=== PATIENT | male | born 1985 | race African-American/Black ===

== ENCOUNTER 2016-09-05 10:46 | Inpatient (IN) | payer OTHER ==
[2016-09-05 11:29] VITALS: BMI 21.7
--- NOTE | 2016-09-05 12:30 | HP ---
COWS - Scale Resting Pulse: 1= [place] 81-100 Sweatin= Chills/Flushing Restless Observation: 3= Extraneous Movement Pupil Size: 2= Moderately Dilated Bone or Joint Aches: 4=Acute Joint/Muscle Pain Runny Nose/ Eye Tearin= None GI Upset > 30mins: 0= None Tremor Observation: 1= Tremor [place], Not Seen Yawning Observation: 2= >3x During Session Anxiety or Irritability: 2=Irritable/Anxious Goose Flesh Skin: 0=Smooth Skin COWS Score: 16 Admission ROS S - HPI Chief Complaint: DETOX TX FOR HEROIN DEPENDENCE Allergies/Adverse Reactions: Allergies Allergy/AdvReac Type Severity Reaction Status Date / Time peanut Allergy Severe Difficulty Verified 09/05/16 11:56 Breathing No Known Drug Allergies Allergy Verified 09/05/16 11:56 nut - unspecified [nut] Allergy Difficulty Verified 09/05/16 11:56 Breathing History of Present Illness: 31 Y/O AA/MALE WITH A HX OF HEROIN,COCAINE AND MARIJUANA DEPENDENCE SEEKING DETOX [place] Exam Limitations: No Limitations - Ebola screening Have you traveled outside of the country in the last 21 days: No Have you had contact with anyone from an Ebola affected area: No Have you been sick,other than usual withdrawal symptoms: No Do you have a fever: No - Review of Systems Constitutional: Chills, Night Sweats, Changes in sleep, Unintentional Wgt. Loss EENT: reports: Tearing, Nose Congestion Respiratory: reports: Shortness of Breath (HX ASTHMA), Wheezing Cardiac: reports: Lightheadedness GI: reports: Constipated, Diarrhea, Nausea, Poor Appetite, Vomiting : reports: No Symptoms Reported Musculoskeletal: reports: Back Pain, Joint Pain, Muscle Pain Neuro: reports: Tremors, Dizziness Endocrine: reports: No Symptoms Reported Hematology: reports: No Symptoms Reported Psychiatric: reports: Orientated x3, Anxious, Depressed (NOT CURRENTLY ON MED) Other Systems: Reviewed and Negative Patient History - Patient Medical History Hx Anemia: No Hx Asthma: Yes (MDI) Hx Chronic Obstructive Pulmonary Disease (COPD): No Hx Cancer: No Hx Cardiac Disorders: No Hx Congestive Heart Failure: No Hx Hypertension: No Hx Hypercholesterolemia: No Hx Pacemaker: No HX Cerebrovascular Accident: No Hx Seizures: No Hx Diabetes: No Hx Gastrointestinal Disorders: No Hx Liver Disease: No Hx Genitourinary Disorders: No Hx Sexually Transmitted Disorders: No Hx Renal Disease (ESRD): No Hx Thyroid Disease: No Hx Human Immunodeficiency Virus (HIV): No (negative LAST 03/09) Hx Hepatitis C: No Hx Depression: Yes Hx Suicide Attempt: No (DENIES) Hx Bipolar Disorder: No Hx Schizophrenia: No - Patient Surgical History Past Surgical History: No Hx Neurologic Surgery: No Hx Cataract Extraction: No Hx Cardiac Surgery: No Hx Lung Surgery: No Hx Breast Surgery: No Hx Breast Biopsy: No Hx Abdominal Surgery: No Hx Appendectomy: No Hx Cholecystectomy: No Hx Genitourinary Surgery: No Hx Orthopedic Surgery: No Anesthesia Reaction: No - PPD History Previous Implant?: Yes Implanted On Prior [facility] Admission?: Yes Date: 11/26/15 Results: 0 mm PPD to be Administered?: No - Reproductive History Patient is a Female of Child Bearing Age (11 -55 yrs old): No (MALE) - Smoking Cessation Smoking history: Current every day smoker Have you smoked in the past 12 months: Yes Aproximately how many cigarettes per day: 20 Cigars Per Day: 0 Hx Chewing Tobacco Use: No Initiated information on smoking cessation: Yes 'Breaking Loose' booklet given: 09/05/16 - Substance & Tx. History Hx Alcohol Use: No (DENIES) Hx Substance Use: Yes (HEROIN/COCAINE/MARIJUANA) Substance Use Type: Cocaine, Heroin, Marijuana Hx Substance Use Treatment: Yes ([facility]) - Substances Abused Heroin Route: Injection Frequency: Daily Amount used: $90 Age of first use: 29 Date of Last Use: 09/04/16 Cocaine Route: Injection Frequency: Daily Amount used: $50 Age of first use: 23 Date of Last Use: 09/05/16 Marijuana/Hashish Route: Smoking Frequency: 1-2 times per week Amount used: 2 JOINTS Age of first use: 18 Date of Last Use: 09/03/16 Family Disease History - Family Disease History Family Disease History: Diabetes: Grandparent (grandmother), Other: Father ( kidney tranplant), Mother (DSA) Admission Physical Exam [facility] - Vital Signs Vital Signs: Vital Signs - 24 hr 09/05/16 11:28 Temperature 97.6 F Pulse Rate 97 H Respiratory 18 Rate Blood Pressure 122/79 - Physical General Appearance: Yes: Moderate Distress, Irritable, Anxious HEENTM: Yes: EOMI, Normocephalic, [place], Pharynx Normal Respiratory: Yes: Chest Non-Tender, Lungs Clear, Normal Breath Sounds, No Respiratory Distress Neck: Yes: Supple, Trachea in good position Cardiology: Yes: Regular Rhythm, Regular Rate, S1, S2 Abdominal: Yes: Normal Bowel Sounds, Non Tender, Soft Genitourinary: Yes: Other (N/C) Back: Yes: Within Normal Limits Musculoskeletal: Yes: full range of Motion, Gait Steady Extremities: Yes: Normal Range of Motion, Non-Tender Neurological: Yes: apprentice technician II-XII NML intact, Fully Oriented, Alert Integumentary: Yes: Dry, Warm, Track [place] Lymphatic: Yes: Within Normal Limits - Diagnostic (1) Cocaine dependence Current Visit: Yes Status: Acute Qualifiers: Substance use status: uncomplicated Qualified Code(s): F14.20 - Cocaine dependence, uncomplicated (2) Marijuana dependence Current Visit: Yes Status: Acute (3) Nicotine dependence Current Visit: Yes Status: Chronic Qualifiers: Nicotine product type: cigarettes Substance use status: uncomplicated Qualified Code(s): F17.210 - Nicotine dependence, cigarettes, uncomplicated (4) Opioid dependence with withdrawal Current Visit: Yes Status: Acute (5) Asthma Current Visit: Yes Status: Chronic Qualifiers: Asthma severity: mild intermittent Asthma complication type: uncomplicated Qualified Code(s): J45.20 - Mild intermittent asthma, uncomplicated Cleared for Admission [facility] - Detox or Rehab [facility] Level of Care: Medically Managed Detox Regimen/Protocol: Methadone [facility] Breath Alcohol Content Breath Alcohol Content: 0 Urine Drug Screen - Results Drug Screen Negative: No Urine Drug Screen Results: THC-Marijuana, HARDEEP-Cocaine, OPI-Opiates, MDMA-Ecstasy
[2016-09-05] MEDS ORDERED: MAGNESIUM HYDROX 2400MG/30ML ORAL SUSPENSION 30 ML CUP PO PRN (12:55)
[2016-09-05] MEDS ORDERED: MENTHOL/PHENOL 1 EACH UD MM PRN (12:55)
[2016-09-05] MEDS ORDERED: guaiFENesin/D-METHORPHAN HB 10 ML UNIT-DOSE CUPS PO PRN (12:55)
[2016-09-05] MEDS ORDERED: IBUPROFEN 400 MG TABLET (FP) PO PRN (12:55)
[2016-09-05] MEDS ORDERED: P-EPHED 60MG/TRIPROLIDI 2.5MG TABLET PO PRN (12:55)
[2016-09-05] MEDS ORDERED: ACETAMINOPHEN 325 MG TABLET (FP) PO PRN (12:55)
[2016-09-05] MEDS ORDERED: NICOTINE POLACRILEX 4 MG GUM BUC PRN (12:55)
[2016-09-05] MEDS ORDERED: MAGNESIUM CITRATE 300 ML BOTTLE PO PRN (12:55)
[2016-09-05] MEDS ORDERED: LOPERAMIDE HCL 2 MG CAPSULE PO PRN (12:55)
[2016-09-05] MEDS ORDERED: ALBUTEROL SO4 6.7 GM HFA INHALER IH PRN (12:57)
[2016-09-05] MEDS ORDERED: METHADONE HCL 10 MG TABLET (FOR DETOX USE ONLY) PO ONE ×2 (14:07→23:00)
[2016-09-05] MEDS: diazePAM 5 MG TABLET PO PRN ×2 (15:15→23:23)
[2016-09-05] MEDS: NICOTINE 21 MG/24 HOURS TOPICAL PATCH TD SCH (15:16)
[2016-09-05 15:26] LABS: HIV 1 & 2 AB NEGATIVE; HIV 1 AGp24 NEGATIVE
[2016-09-05 16:03] LABS: URINE APPEARANCE CLEAR; URINE BILIRUBIN NEGATIVE (NEGATIVE); URINE BLOOD NEGATIVE (NEGATIVE); URINE COLOR DKYELLOW; URINE GLUCOSE (UA) NEGATIVE (NEGATIVE); URINE KETONE NEGATIVE (NEGATIVE); URINE NITRITE NEGATIVE (NEGATIVE); URINE PROTEIN NEGATIVE (NEGATIVE); URINE UROBILINOGEN NEGATIVE E.U./dl (0.2-1.0)
[2016-09-05 16:13] LABS: URINE LEUK ESTERASE TRACE (NEGATIVE)
[2016-09-05 16:54] LABS: URINE BACTERIA RARE /hpf (NONE SEEN); URINE MUCUS RARE; URINE RBC 1 /hpf (0-3); URINE WBC 5 /hpf (3-5)
[2016-09-05] MEDS: THIAMINE HCL 100 MG TABLET (FP) PO SCH (22:24)
[2016-09-05] MEDS: diphenhydrAMINE HCL 50 MG CAPSULE PO PRN (23:21)
[2016-09-06] MEDS: diazePAM 5 MG TABLET PO PRN ×4 (05:49→22:26)
[2016-09-06] MEDS ORDERED: METHADONE HCL 10 MG TABLET (FOR DETOX USE ONLY) PO ONE (10:00)
[2016-09-06] MEDS: PRENATAL VITAMINS W/ FOLIC ACID TABLET (FP) PO SCH (10:23)
[2016-09-06] MEDS: NICOTINE 21 MG/24 HOURS TOPICAL PATCH TD SCH (10:24)
[2016-09-06 10:32] LABS: MCH 25.4 pg (25.7-33.7); MCHC 32.6 g/dl (32.0-35.9); MEAN CELL VOLUME 77.7 fl (80-96); MEAN PLT VOLUME 9.6 fl (7.5-11.1); PLATELET COUNT 228 K/MM3 (134-434); RDW 15.5 % (11.9-15.9)
--- NOTE | 2016-09-06 10:43 | PN ---
S COWS - Scale Resting Pulse: 1= [place] 81-100 Sweatin= Chills/Flushing Restless Observation: 3= Extraneous Movement Pupil Size: 2= Moderately Dilated Bone or Joint Aches: 2= Severe Diffuse Aches Runny Nose/ Eye Tearin= Nasal Congestion GI Upset > 30mins: 0= None Tremor Observation of Outstretched Hands: 1= Tremor [place], Not Seen Yawning Observation: 2= >3x During Session Anxiety or Irritability: 2=Irritable/Anxious Goose Flesh Skin: 0=Smooth Skin COWS Score: 15 S Progress Note (SOAP) Subjective: SLIGHT ANXIETY,SWEATS,MEDS EFFECTIVE. Objective: 09/06/16 10:42 Vital Signs Temperature 96.5 F L 09/06/16 09:52 Pulse Rate 93 H 09/06/16 09:52 Respiratory Rate 18 09/06/16 09:52 Blood Pressure 125/70 09/06/16 09:52 O2 Sat by Pulse Oximetry (%) Laboratory Last Values WBC 9.0 K/mm3 (4.0-10.0) 09/06/16 06:00 RBC 5.44 M/mm3 (4.00-5.60) 09/06/16 06:00 Hgb 13.8 GM/dL (11.7-16.9) 09/06/16 06:00 Hct 42.3 % (35.4-49) 09/06/16 06:00 MCV 77.7 fl (80-96) L 09/06/16 06:00 MCHC 32.6 g/dl (32.0-35.9) 09/06/16 06:00 RDW 15.5 % (11.9-15.9) 09/06/16 06:00 Plt Count 228 K/MM3 (134-434) 09/06/16 06:00 MPV 9.6 fl (7.5-11.1) 09/06/16 06:00 Urine Color Dkyellow 09/05/16 14:00 Urine Appearance Clear 09/05/16 14:00 Urine pH 5.0 (5.0-8.0) D 09/05/16 14:00 Ur Specific [place] 1.027 (1.001-1.035) 09/05/16 14:00 Urine Protein Negative (NEGATIVE) 09/05/16 14:00 Urine Glucose (UA) Negative (NEGATIVE) 09/05/16 14:00 Urine Ketones Negative (NEGATIVE) 09/05/16 14:00 Urine Blood Negative (NEGATIVE) 09/05/16 14:00 Urine Nitrite Negative (NEGATIVE) 09/05/16 14:00 Urine Bilirubin Negative (NEGATIVE) 09/05/16 14:00 Urine Urobilinogen Negative E.U./dl (0.2-1.0) 09/05/16 14:00 Ur Leukocyte Esterase Trace (NEGATIVE) H 09/05/16 14:00 Urine RBC 1 /hpf (0-3) 09/05/16 14:00 Urine WBC 5 /hpf (3-5) 09/05/16 14:00 Ur Epithelial Cells Rare /hpf (FEW) 09/05/16 14:00 Urine Bacteria Rare /hpf (NONE SEEN) 09/05/16 14:00 Urine Mucus Rare 09/05/16 14:00 HIV 1&2 Antibody Screen Negative 09/05/16 12:05 HIV P24 Antigen Negative 09/05/16 12:05 LABS NOTED Assessment: 09/06/16 10:42 WITHDRAWAL SX Plan: CONTINUE DETOX
[2016-09-06 11:10] LABS: ALBUMIN 4.2 g/dl (3.4-5.0); ALK PHOS 111 U/L (45-117); ANION GAP 9 (8-16); BILIRUBIN,TOTAL 0.6 mg/dL (0.2-1.0); CALCIUM 9.1 mg/dL (8.5-10.1); CO2 25 mmol/L (21-32); CREATININE 1.2 mg/dL (0.7-1.3); GLUCOSE,RANDOM 78 mg/dL (74-106); SGOT/AST 109 U/L (15-37); SGPT/ALT 282 U/L (12-78); TOT PROT 7.2 g/dl (6.4-8.2)
--- NOTE | 2016-09-06 11:15 | CONSULT ---
[facility] Psychiatric Consult - Data Date of interview: 09/06/16 Admission source: [facility] Identifying data: New admission to [facility] for this 31 y/o AA male seeking detox treatment,on ,for alcohol,cocaine (crack),heroin,benzodiazepine ( xanax) and marijuana dependence.Patient is single without children,domiciled ( lives with mother),unemployed and dependent on food stamps. Substance Abuse History: - Smoking Cessation. Smoking history: Current every day smoker. Have you smoked in the past 12 months: Yes. Aproximately how many cigarettes per day: 20. Cigars Per Day: 0. Hx Chewing Tobacco Use: No. Initiated information on smoking cessation: Yes. 'Breaking Loose' booklet given : 09/05/16. - Substance & Tx. History. Hx Alcohol Use: No (DENIES). Hx Substance Use: Yes (HEROIN/COCAINE/MARIJUANA). Substance Use Type: Cocaine, Heroin, Marijuana. Hx Substance Use Treatment: Yes ([facility]). - Substances Abused. Heroin. Route: Injection. Frequency: Daily. Amount used: $90. Age of first use: 29. Date of Last Use: 09/04/16. Cocaine. Route: Injection. Frequency: Daily. Amount used: $50. Age of first use: 23. Date of Last Use: 09/05/16. Marijuana/Hashish. Route: Smoking. Frequency: 1-2 times per week. Amount used: 2 JOINTS. Age of first use: 18. Date of Last Use: 09/03/16. Confirmed by patient. Medical History: Significant for bronchial asthma. Psychiatric History: Patient admits to being lost to follow up since 2011.Off psychotropic medications (own choice).First contact with Psychiatry at age 17- 18 (diagnosed with MDD and treated with psychotherapy).Pharmacotherapy was initiated in 1999 and lasted until 2011 (patient has no recall of medications) .Mr Berman denies history of psychiatric hospitalizations.No history of suicide attempts. Physical/Sexual Abuse/Trauma History: Patient denies. Mental Status Exam - Mental Status Exam Alert and Oriented to: Time, Place, Person Cognitive Function: Good Patient Appearance: Well Groomed Mood: Hopeful, Euthymic Affect: Appropriate, Normal Range Patient Behavior: Appropriate, Cooperative Speech Pattern: Clear, Appropriate Voice Loudness: Normal Thought Process: Goal Oriented Thought Disorder: Not Present Hallucinations: Denies Suicidal Ideation: Denies Homicidal Ideation: Denies Insight/Judgement: Good Sleep: Well Appetite: Good Muscle strength/Tone: Normal Gait/Station: Normal Psychiatric Findings - Problem List ([place] 1, 2,3) (1) Cocaine dependence Current Visit: Yes Status: Acute Qualifiers: Substance use status: uncomplicated Qualified Code(s): F14.20 - Cocaine dependence, uncomplicated (2) Marijuana dependence Current Visit: Yes Status: Acute (3) Opioid dependence with withdrawal Current Visit: Yes Status: Acute (4) Nicotine dependence Current Visit: Yes Status: Acute Qualifiers: Nicotine product type: cigarettes Substance use status: uncomplicated Qualified Code(s): F17.210 - Nicotine dependence, cigarettes, uncomplicated (5) Alcohol dependence with uncomplicated withdrawal Current Visit: Yes Status: Acute (6) Uncomplicated sedative, hypnotic or anxiolytic withdrawal Current Visit: Yes Status: Acute (7) Asthma Current Visit: Yes Status: Chronic Qualifiers: Asthma severity: mild intermittent Asthma complication type: uncomplicated Qualified Code(s): J45.20 - Mild intermittent asthma, uncomplicated - Initial Treatment Plan Initial Treatment Plan: Psychoeducation.Detoxification.Zolpidem 5 mg po hs prn.Patient is made aware of parasomnias.Patient agrees withis careplan.Observation.
--- NOTE | 2016-09-06 12:44 | EKG ---
Test Reason : Blood Pressure : / mmHG Vent. Rate : 081 BPM Atrial Rate : 081 BPM P-R Int : 160 ms QRS Dur : 088 ms QT Int : 374 ms P-R-T Axes : 082 -20 055 degrees QTc Int : 434 ms NORMAL SINUS RHYTHM POSSIBLE LEFT ATRIAL ENLARGEMENT NO PREVIOUS ECGS AVAILABLE Confirmed by LAKESHA GUERRA MD ([id number]) on 09/06/2016 12:43:43 PM Referred By: Confirmed By:LAKESHA GUERRA MD
[2016-09-06] MEDS ORDERED: PNEUMOC 13-VAL CONJ-DIP CRM/PF 0.5 ML DISP.SYRIN IM ONE (13:40)
[2016-09-06] MEDS ORDERED: ZOLPIDEM TARTRATE 5 MG TABLET PO PRN (22:00)
[2016-09-06] MEDS: THIAMINE HCL 100 MG TABLET (FP) PO SCH (22:26)
[2016-09-06] MEDS: diphenhydrAMINE HCL 50 MG CAPSULE PO PRN (22:27)
[2016-09-07] MEDS: diazePAM 5 MG TABLET PO PRN ×3 (06:06→22:20)
[2016-09-07] MEDS ORDERED: METHADONE HCL 5 MG TABLET (FOR DETOX USE ONLY) PO ONE (10:00)
[2016-09-07] MEDS: NICOTINE 21 MG/24 HOURS TOPICAL PATCH TD SCH (10:43)
[2016-09-07] MEDS: PRENATAL VITAMINS W/ FOLIC ACID TABLET (FP) PO SCH (10:43)
[2016-09-07] MEDS: MAG HYDROX/AL HYDROX/SIMETH 30 ML UNIT-DOSE CUP PO PRN (11:41)
[2016-09-07] MEDS ORDERED: PNEUMOCOCCAL 23 VACCINE 0.5 ML VIAL IM ONE (12:00)
--- NOTE | 2016-09-07 17:23 | PN ---
S COWS - Scale Resting Pulse: 1= [place] 81-100 Sweatin= Chills/Flushing Restless Observation: 1= Difficult to Sit Still Pupil Size: 2= Moderately Dilated Bone or Joint Aches: 1= Mild Discomfort Runny Nose/ Eye Tearin= Runny Nose/Eyes GI Upset > 30mins: 2= Nausea/Diarrhea Tremor Observation of Outstretched Hands: 2= Slight Tremor Visible Yawning Observation: 0= None Anxiety or Irritability: 2=Irritable/Anxious Goose Flesh Skin: 0=Smooth Skin COWS Score: 14 [facility] Progress Note (SOAP) Objective: 09/07/16 17:24 Laboratory Tests 09/05/16 09/05/16 09/06/16 12:05 14:00 06:00 WBC 9.0 RBC 5.44 Hgb 13.8 Hct 42.3 MCV 77.7 L MCHC 32.6 RDW 15.5 Plt Count 228 MPV 9.6 Sodium Potassium Chloride Carbon Dioxide Anion Gap BUN Creatinine Creat Clearance w eGFR Random Glucose Calcium Total Bilirubin AST ALT Alkaline Phosphatase Total Protein Albumin Urine Color Dkyellow Urine Appearance Clear Urine pH 5.0 D Ur Specific [place] 1.027 Urine Protein Negative Urine Glucose (UA) Negative Urine Ketones Negative Urine Blood Negative Urine Nitrite Negative Urine Bilirubin Negative Urine Urobilinogen Negative Ur Leukocyte Esterase Trace H Urine RBC 1 Urine WBC 5 Ur Epithelial Cells Rare Urine Bacteria Rare Urine Mucus Rare RPR Titer HIV 1&2 Antibody Screen Negative HIV P24 Antigen Negative 09/06/16 09/06/16 06:00 06:00 WBC RBC Hgb Hct MCV MCHC RDW Plt Count MPV Sodium 141 Potassium 3.9 Chloride 107 Carbon Dioxide 25 Anion Gap 9 BUN 14 Creatinine 1.2 Creat Clearance w eGFR > 60 Random Glucose 78 D Calcium 9.1 Total Bilirubin 0.6 AST 109 H D ALT 282 H D Alkaline Phosphatase 111 D Total Protein 7.2 Albumin 4.2 Urine Color Urine Appearance Urine pH Ur Specific [place] Urine Protein Urine Glucose (UA) Urine Ketones Urine Blood Urine Nitrite Urine Bilirubin Urine Urobilinogen Ur Leukocyte Esterase Urine RBC Urine WBC Ur Epithelial Cells Urine Bacteria Urine Mucus RPR Titer Nonreactive HIV 1&2 Antibody Screen HIV P24 Antigen Vital Signs - 24 hr 09/06/16 09/06/16 09/07/16 17:51 22:17 00:30 Temperature 98.6 F 98.1 F Pulse Rate 84 84 Respiratory 19 19 18 Rate Blood Pressure 110/61 103/66 09/07/16 09/07/16 09/07/16 03:30 06:43 09:47 Temperature 97.9 F 97.1 F L Pulse Rate 81 81 83 Respiratory 18 18 18 Rate Blood Pressure 113/70 105/56 09/07/16 14:25 Temperature 97.3 F L Pulse Rate 80 Respiratory 18 Rate Blood Pressure 118/75 Assessment: 09/07/16 17:24 ongoing withdrawal Plan: continue detox protocol
[2016-09-07] MEDS: THIAMINE HCL 100 MG TABLET (FP) PO SCH (22:20)
[2016-09-07] MEDS: diphenhydrAMINE HCL 50 MG CAPSULE PO PRN (22:21)
[2016-09-08] MEDS: diazePAM 5 MG TABLET PO PRN ×2 (05:42→10:35)
[2016-09-08] MEDS ORDERED: METHADONE HCL 5 MG TABLET (FOR DETOX USE ONLY) PO ONE (10:00)
[2016-09-08] MEDS: NICOTINE 21 MG/24 HOURS TOPICAL PATCH TD SCH (10:35)
[2016-09-08] MEDS: PRENATAL VITAMINS W/ FOLIC ACID TABLET (FP) PO SCH (10:35)
--- NOTE | 2016-09-08 16:13 | PN ---
[facility] Progress Note (SOAP) Subjective: Sweating, headache, interrupted sleep, anxious Objective: 09/08/16 16:11 Last Vital Signs Temp Pulse Resp BP Pulse Ox 98.4 F 92 H 18 101/63 09/08/16 13:47 09/08/16 13:47 09/08/16 13:47 09/08/16 13:47 Laboratory Tests 09/05/16 09/05/16 09/06/16 12:05 14:00 06:00 WBC 9.0 RBC 5.44 Hgb 13.8 Hct 42.3 MCV 77.7 L MCHC 32.6 RDW 15.5 Plt Count 228 MPV 9.6 Sodium Potassium Chloride Carbon Dioxide Anion Gap BUN Creatinine Creat Clearance w eGFR Random Glucose Calcium Total Bilirubin AST ALT Alkaline Phosphatase Total Protein Albumin Urine Color Dkyellow Urine Appearance Clear Urine pH 5.0 D Ur Specific [place] 1.027 Urine Protein Negative Urine Glucose (UA) Negative Urine Ketones Negative Urine Blood Negative Urine Nitrite Negative Urine Bilirubin Negative Urine Urobilinogen Negative Ur Leukocyte Esterase Trace H Urine RBC 1 Urine WBC 5 Ur Epithelial Cells Rare Urine Bacteria Rare Urine Mucus Rare RPR Titer HIV 1&2 Antibody Screen Negative HIV P24 Antigen Negative 09/06/16 09/06/16 06:00 06:00 WBC RBC Hgb Hct MCV MCHC RDW Plt Count MPV Sodium 141 Potassium 3.9 Chloride 107 Carbon Dioxide 25 Anion Gap 9 BUN 14 Creatinine 1.2 Creat Clearance w eGFR > 60 Random Glucose 78 D Calcium 9.1 Total Bilirubin 0.6 AST 109 H D ALT 282 H D Alkaline Phosphatase 111 D Total Protein 7.2 Albumin 4.2 Urine Color Urine Appearance Urine pH Ur Specific [place] Urine Protein Urine Glucose (UA) Urine Ketones Urine Blood Urine Nitrite Urine Bilirubin Urine Urobilinogen Ur Leukocyte Esterase Urine RBC Urine WBC Ur Epithelial Cells Urine Bacteria Urine Mucus RPR Titer Nonreactive HIV 1&2 Antibody Screen HIV P24 Antigen Labs noted: LFTs elevated Assessment: 09/08/16 16:13 Withdrawal symptoms Noted with elevated LFTs Plan: Continue detox Elevated LFTs: repeat LFTs
[2016-09-08 17:35] LABS: URINE APPEARANCE SLCLOUDY; URINE BILIRUBIN NEGATIVE (NEGATIVE); URINE BLOOD NEGATIVE (NEGATIVE); URINE COLOR YELLOW; URINE GLUCOSE (UA) NEGATIVE (NEGATIVE); URINE KETONE NEGATIVE (NEGATIVE); URINE LEUK ESTERASE NEGATIVE (NEGATIVE); URINE NITRITE NEGATIVE (NEGATIVE); URINE PROTEIN NEGATIVE (NEGATIVE); URINE UROBILINOGEN NEGATIVE E.U./dl (0.2-1.0)
[2016-09-08] MEDS: THIAMINE HCL 100 MG TABLET (FP) PO SCH (22:26)
[2016-09-09] MEDS: hydrOXYzine PAMOATE 25 MG CAPSULE (FP) PO PRN ×3 (05:47→23:42)
[2016-09-09] MEDS ORDERED: METHADONE HCL 10 MG TABLET (FOR DETOX USE ONLY) PO ONE (10:00)
[2016-09-09] MEDS: PRENATAL VITAMINS W/ FOLIC ACID TABLET (FP) PO SCH (10:24)
[2016-09-09] MEDS: NICOTINE 21 MG/24 HOURS TOPICAL PATCH TD SCH (10:24)
--- NOTE | 2016-09-09 11:41 | PN ---
[facility] Progress Note (SOAP) Subjective: restless, anxious, interrupted sleep Objective: 09/09/16 11:37 Vital Signs - 8 hr 09/09/16 09/09/16 06:46 10:25 Temperature 98.6 F 96.4 F L Pulse Rate 72 93 H Respiratory 16 18 Rate Blood Pressure 106/63 111/63 Laboratory Last Values WBC 9.0 K/mm3 (4.0-10.0) 09/06/16 06:00 RBC 5.44 M/mm3 (4.00-5.60) 09/06/16 06:00 Hgb 13.8 GM/dL (11.7-16.9) 09/06/16 06:00 Hct 42.3 % (35.4-49) 09/06/16 06:00 MCV 77.7 fl (80-96) L 09/06/16 06:00 MCHC 32.6 g/dl (32.0-35.9) 09/06/16 06:00 RDW 15.5 % (11.9-15.9) 09/06/16 06:00 Plt Count 228 K/MM3 (134-434) 09/06/16 06:00 MPV 9.6 fl (7.5-11.1) 09/06/16 06:00 Sodium 141 mmol/L (136-145) 09/06/16 06:00 Potassium 3.9 mmol/L (3.5-5.1) 09/06/16 06:00 Chloride 107 mmol/L (98-107) 09/06/16 06:00 Carbon Dioxide 25 mmol/L (21-32) 09/06/16 06:00 Anion Gap 9 (8-16) 09/06/16 06:00 BUN 14 mg/dL (7-18) 09/06/16 06:00 Creatinine 1.2 mg/dL (0.7-1.3) 09/06/16 06:00 Creat Clearance w eGFR > 60 (>60) 09/06/16 06:00 Random Glucose 78 mg/dL (74-106) D 09/06/16 06:00 Calcium 9.1 mg/dL (8.5-10.1) 09/06/16 06:00 Total Bilirubin 0.6 mg/dL (0.2-1.0) 09/06/16 06:00 AST 109 U/L (15-37) H D 09/06/16 06:00 ALT 282 U/L (12-78) H D 09/06/16 06:00 Alkaline Phosphatase 111 U/L (45-117) D 09/06/16 06:00 Total Protein 7.2 g/dl (6.4-8.2) 09/06/16 06:00 Albumin 4.2 g/dl (3.4-5.0) 09/06/16 06:00 Urine Color Yellow 09/08/16 11:00 Urine Appearance Slcloudy 09/08/16 11:00 Urine pH 7.0 (5.0-8.0) D 09/08/16 11:00 Ur Specific [place] 1.012 (1.001-1.035) 09/08/16 11:00 Urine Protein Negative (NEGATIVE) 09/08/16 11:00 Urine Glucose (UA) Negative (NEGATIVE) 09/08/16 11:00 Urine Ketones Negative (NEGATIVE) 09/08/16 11:00 Urine Blood Negative (NEGATIVE) 09/08/16 11:00 Urine Nitrite Negative (NEGATIVE) 09/08/16 11:00 Urine Bilirubin Negative (NEGATIVE) 09/08/16 11:00 Urine Urobilinogen Negative E.U./dl (0.2-1.0) 09/08/16 11:00 Ur Leukocyte Esterase Negative (NEGATIVE) 09/08/16 11:00 Urine RBC 1 /hpf (0-3) 09/05/16 14:00 Urine WBC 5 /hpf (3-5) 09/05/16 14:00 Ur Epithelial Cells Rare /hpf (FEW) 09/05/16 14:00 Urine Bacteria Rare /hpf (NONE SEEN) 09/05/16 14:00 Urine Mucus Rare 09/05/16 14:00 RPR Titer Nonreactive (NONREACTIVE) 09/06/16 06:00 HIV 1&2 Antibody Screen Negative 09/05/16 12:05 HIV P24 Antigen Negative 09/05/16 12:05 labs noted Assessment: 09/09/16 11:38 withdrawal symptoms Plan: Continue Detox
[2016-09-09] MEDS: MAG HYDROX/AL HYDROX/SIMETH 30 ML UNIT-DOSE CUP PO PRN (11:45)
[2016-09-09] MEDS: THIAMINE HCL 100 MG TABLET (FP) PO SCH (22:28)
[2016-09-09] MEDS: diphenhydrAMINE HCL 50 MG CAPSULE PO PRN (22:28)
[2016-09-10] MEDS: hydrOXYzine PAMOATE 25 MG CAPSULE (FP) PO PRN (05:56)
[2016-09-10] MEDS ORDERED: METHADONE HCL 5 MG TABLET (FOR DETOX USE ONLY) PO ONE (06:00)
--- NOTE | 2016-09-10 10:23 | DS ---
[facility] Detox Discharge Summary Admission Date: 09/05/16 Discharge Date: 09/10/16 - History Present History: Alcohol Dependence, Cannabis Dependence, Cocaine Dependence Additional Comments: DETOX COMPLETED. Pertinent Past History: ASTHMA INSOMNIA HX DEPRESSION - Physical Exam Results Vital Signs: Vital Signs Temperature 96.0 F L 09/10/16 09:32 Pulse Rate 77 09/10/16 09:32 Respiratory Rate 18 09/10/16 09:32 Blood Pressure 102/60 09/10/16 09:32 O2 Sat by Pulse Oximetry (%) Pertinent Admission Physical Exam Findings: WITHDRAWAL SX - Treatment Hospital Course: Detox Protocol Followed, Detoxed Safely, Responded well, Discharged Condition Good - Medication Discharge Medications: Ambulatory Orders Albuterol Sulfate Inhaler - [Ventolin HFA Inhaler -] 2 inh PO Q4H PRN 11/24/15 - Diagnosis (1) Cocaine dependence Current Visit: Yes Status: Acute Qualifiers: Substance use status: uncomplicated Qualified Code(s): F14.20 - Cocaine dependence, uncomplicated (2) Marijuana dependence Current Visit: Yes Status: Acute (3) Nicotine dependence Current Visit: Yes Status: Chronic Qualifiers: Nicotine product type: cigarettes Substance use status: uncomplicated Qualified Code(s): F17.210 - Nicotine dependence, cigarettes, uncomplicated (4) Opioid dependence with withdrawal Current Visit: Yes Status: Acute (5) Asthma Current Visit: Yes Status: Chronic Qualifiers: Asthma severity: mild intermittent Asthma complication type: uncomplicated Qualified Code(s): J45.20 - Mild intermittent asthma, uncomplicated - AMA Did Patient Leave Against Medical Advice: No
[2016-09-10] MEDS: PRENATAL VITAMINS W/ FOLIC ACID TABLET (FP) PO SCH (10:25)
[2016-09-10] MEDS: NICOTINE 21 MG/24 HOURS TOPICAL PATCH TD SCH (10:26)
[2016-09-10 10:49] LABS: ALBUMIN 3.5 g/dl (3.4-5.0); ALK PHOS 137 U/L (45-117); BILIRUBIN,TOTAL 0.3 mg/dL (0.2-1.0); SGOT/AST 43 U/L (15-37); SGPT/ALT 179 U/L (12-78); TOT PROT 6.5 g/dl (6.4-8.2)
[2016-09-10 10:50] LABS: BILIRUBIN,DIRECT < 0.1 mg/dL (0.0-0.2)
[2016-09-10 14:14] VITALS: BP 114/63; PULSE 70; TEMP 97
== END 2016-09-10 13:30 | disposition home or self-care (01) | DRG 773 ==
LOC: YASAS 10:46 → Y3N 13:31
PROVIDERS: ADMIT Internal Medicine; ATTEND Internal Medicine
PROC: HZ2ZZZZ Detoxification Services for Substance Abuse Treatment (ICD-10-PCS; principal; 2016-09-05)
DX: F11.23 Opioid dependence with withdrawal (principal); F14.20 Cocaine dependence, uncomplicated; F12.20 Cannabis dependence, uncomplicated; F17.210 Nicotine dependence, cigarettes, uncomplicated; J45.20 Mild intermittent asthma, uncomplicated; R94.5 Abnormal results of liver function studies
CPT/HCPCS: 36415; 80053; 80076; 81003; 81015; 85027; 86593; 87389; 90732; 93005; 93010; G0009

== ENCOUNTER 2018-08-24 12:21 | Inpatient (IN) | payer OTHER ==
[2018-08-24 12:57] VITALS: BMI 24.0
--- NOTE | 2018-08-24 16:48 | HP ---
COWS - Scale Resting Pulse: 0= [place] 80 or Below Sweatin= Chills/Flushing Restless Observation: 0= Sits Still Pupil Size: 1= Pupils >than Normal Bone or Joint Aches: 2= Severe Diffuse Aches Runny Nose/ Eye Tearin= Runny Nose/Eyes GI Upset > 30mins: 2= Nausea/Diarrhea Tremor Observation: 1= Tremor [place], Not Seen Yawning Observation: 0= None Anxiety or Irritability: 2=Irritable/Anxious Goose Flesh Skin: 3=Piloerection COWS Score: 14 CIWA Score - Admission Criteria OASAS Guidelines: Admission for Medically Managed Detox: Requires at least one of the followin. CIWA greater than 12 2. Seizures within the past 24 hours 3. Delirium tremens within the past 24 hours 4. Hallucinations within the past 24 hours 5. Acute intervention needed for co occurring medical disorder 6. Acute intervention needed for co occurring psychiatric disorder 7. Severe withdrawal that cannot be handled at a lower level of care (continued vomiting, continued diarrhea, abnormal vital signs) requiring intravenous medication and/or fluids 8. Admission ROS [facility] Chief Complaint: here for detox from heroin and cocaine Using heroin for about 5 years- IV uses about 3 bags a day. Pt wants to get into [facility] treatment. Was here about 2 years ago- was abstinent for about 3 weeks and then started using again. Cocaine- uses about 5 bags a day- IV med problems: asthma, uses asthma pump. Was taking Wellbutrin/hydroxyzine for depression- last use 2 months Homeless- stays in [facility] DUR/ISTOP- no controlled substances Utox: pos for THC, cocaine and opiates Allergies/Adverse Reactions: Allergies Allergy/AdvReac Type Severity Reaction Status Date / Time peanut Allergy Severe Difficulty Verified 08/24/18 14:59 Breathing No Known Drug Allergies Allergy Verified 08/24/18 14:59 nut - unspecified [nut] Allergy Difficulty Verified 08/24/18 14:59 Breathing - Ebola screening Have you traveled outside of the country in the last 21 days: No Have you had contact with anyone from an Ebola affected area: No Have you been sick,other than usual withdrawal symptoms: No Do you have a fever: No - Review of Systems Constitutional: No Symptoms Reported EENT: reports: No Symptoms Reported Respiratory: reports: No Symptoms reported Cardiac: reports: No Symptoms Reported GI: reports: No Symptoms Reported : reports: No Symptoms Reported Musculoskeletal: reports: No Symptoms Reported Integumentary: reports: Erythema Neuro: reports: No Symptoms reported Endocrine: reports: No Symptoms Reported Hematology: reports: No Symptoms Reported Patient History - Patient Medical History Hx Anemia: No Hx Asthma: Yes (MDI) Hx Chronic Obstructive Pulmonary Disease (COPD): No Hx Cancer: No Hx Cardiac Disorders: No Hx Congestive Heart Failure: No Hx Hypertension: No Hx Hypercholesterolemia: No Hx Pacemaker: No HX Cerebrovascular Accident: No Hx Seizures: No Hx Diabetes: No Hx Gastrointestinal Disorders: No Hx Liver Disease: No Hx Genitourinary Disorders: No Hx Sexually Transmitted Disorders: No Hx Renal Disease (ESRD): No Hx Thyroid Disease: No Hx Human Immunodeficiency Virus (HIV): No (negative LAST 03/09) Hx Hepatitis C: No Hx Depression: Yes Hx Suicide Attempt: No (DENIES) Hx Bipolar Disorder: No Hx Schizophrenia: No - Patient Surgical History Past Surgical History: No Hx Neurologic Surgery: No Hx Cataract Extraction: No Hx Cardiac Surgery: No Hx Lung Surgery: No Hx Breast Surgery: No Hx Breast Biopsy: No Hx Abdominal Surgery: No Hx Appendectomy: No Hx Cholecystectomy: No Hx Genitourinary Surgery: No Hx Section: No Hx Orthopedic Surgery: No Anesthesia Reaction: No - PPD History Previous Implant?: Yes Documented Results: Negative w/proof Implanted On Prior R Admission?: Yes Date: 11/26/15 Results: NEGATIVE - Smoking Cessation Smoking history: Current every day smoker Have you smoked in the past 12 months: Yes Aproximately how many cigarettes per day: 6 Cigars Per Day: 0 Hx Chewing Tobacco Use: No Initiated information on smoking cessation: Yes 'Breaking Loose' booklet given: 08/24/18 - Substances Abused Heroin Route: Injection Frequency: 1-2 times per week Amount used: 3 bags Age of first use: 28 Date of Last Use: 08/23/18 Cocaine Route: Injection Frequency: 3-6 times per week Amount used: 2 bags Age of first use: 27 Date of Last Use: 08/23/18 Marijuana/Hashish Route: Smoking Frequency: 1-2 times per week Amount used: 1-2 joints Age of first use: 18 Date of Last Use: 08/17/18 Family Disease History - Family Disease History Family Disease History: Diabetes: Grandparent (grandmother), Other: Father ( kidney tranplant), Mother (HTN) Admission Physical Exam BHS - Vital Signs Vital Signs: Vital Signs - 24 hr 08/24/18 12:55 Temperature 97.8 F Pulse Rate 72 Respiratory 20 Rate Blood Pressure 102/59 L - Physical General Appearance: Yes: Within Normal Limits HEENTM: Yes: Within Normal Limits, Normal Voice, [place] Respiratory: Yes: Within Normal Limits, Lungs Clear Neck: Yes: Within Normal Limits Cardiology: Yes: Within Normal Limits, Regular Rate, S1, S2 Abdominal: Yes: Within Normal Limits, Non Tender, Flat Genitourinary: Yes: Within Normal Limits Back: Yes: Within Normal Limits Musculoskeletal: Yes: Within Normal Limits Extremities: Yes: Erythema, Inflammation (L antecubital fossa- with redness and pain of injection site) Neurological: Yes: Within Normal Limits Integumentary: Yes: Erythema (L antecubital fossa- with redness and pain of injection site), Track [place] Lymphatic: Yes: Within Normal Limits - Diagnostic (1) Cocaine dependence Current Visit: No Status: Acute Qualifiers: Substance use status: uncomplicated Qualified Code(s): F14.20 - Cocaine dependence, uncomplicated (2) Opioid abuse Current Visit: No Status: Acute (3) Asthma Current Visit: No Status: Chronic Qualifiers: Asthma severity: mild intermittent Asthma complication type: uncomplicated Qualified Code(s): J45.20 - Mild intermittent asthma, uncomplicated (4) Nicotine dependence Current Visit: No Status: Chronic Qualifiers: Nicotine product type: cigarettes Substance use status: uncomplicated Qualified Code(s): F17.210 - Nicotine dependence, cigarettes, uncomplicated BHS Breath Alcohol Content Breath Alcohol Content: 0 Urine Drug Screen - Results Drug Screen Negative: No Urine Drug Screen Results: THC-Marijuana, HARDEEP-Cocaine, OPI-Opiates
[2018-08-24] MEDS ORDERED: LOPERAMIDE HCL 2 MG CAPSULE PO PRN (16:55)
[2018-08-24] MEDS ORDERED: IBUPROFEN 400 MG TABLET (FP) PO PRN (16:55)
[2018-08-24] MEDS ORDERED: P-EPHED 60MG/TRIPROLIDI 2.5MG TABLET PO PRN (16:55)
[2018-08-24] MEDS ORDERED: MAGNESIUM HYDROX 2400MG/30ML ORAL SUSPENSION 30 ML CUP PO PRN (16:55)
[2018-08-24] MEDS ORDERED: ACETAMINOPHEN 325 MG TABLET (FP) PO PRN (16:55)
[2018-08-24] MEDS ORDERED: guaiFENesin/D-METHORPHAN HB 10 ML UNIT-DOSE CUPS PO PRN (16:55)
[2018-08-24] MEDS ORDERED: METHADONE HCL 10 MG TABLET (FOR DETOX USE ONLY) PO ONE ×2 (16:55→23:00)
[2018-08-24] MEDS ORDERED: MAGNESIUM CITRATE 300 ML BOTTLE PO PRN (16:55)
[2018-08-24] MEDS ORDERED: MENTHOL/PHENOL 1 EACH UD MM PRN (16:55)
[2018-08-24] MEDS ORDERED: cloNIDine HCL 0.1 MG TABLET PO PRN (16:57)
[2018-08-24] MEDS ORDERED: AMOX TR/POT CLAV 875MG/125MG TABLETS (FP) PO ONE (16:57)
[2018-08-24] MEDS: AMOX TR/POT CLAV 875MG/125MG TABLETS (FP) PO SCH (19:00)
[2018-08-24] MEDS: diazePAM 5 MG TABLET PO PRN (19:00)
[2018-08-24] MEDS: BACITRACIN 0.9 GM PACKET TP SCH (21:15)
[2018-08-24] MEDS ORDERED: MELATONIN 5 MG TABLETS PO PRN (22:00)
[2018-08-24] MEDS: THIAMINE HCL 100 MG TABLET (FP) PO SCH (22:16)
[2018-08-25] MEDS: ALBUTEROL SO4 8 GM HFA INHALER IH PRN ×4 (05:54→22:38)
[2018-08-25] MEDS: AMOX TR/POT CLAV 875MG/125MG TABLETS (FP) PO SCH ×2 (07:01→17:18)
[2018-08-25] MEDS ORDERED: METHADONE HCL 10 MG TABLET (FOR DETOX USE ONLY) PO ONE (10:00)
[2018-08-25] MEDS: diazePAM 5 MG TABLET PO PRN (10:00)
[2018-08-25] MEDS: BACITRACIN 0.9 GM PACKET TP SCH ×4 (10:00→22:16)
[2018-08-25] MEDS: NICOTINE 14 MG/24 HOURS TOPICAL PATCH TD SCH (10:00)
[2018-08-25] MEDS: PRENATAL VITAMINS W/ FOLIC ACID TABLET (FP) PO SCH (10:00)
[2018-08-25] MEDS: MAG HYDROX/AL HYDROX/SIMETH 30 ML UNIT-DOSE CUP PO PRN (10:02)
[2018-08-25 11:16] LABS: HEMATOCRIT 40.1 % (35.4-49); HEMOGLOBIN 12.9 GM/dL (11.7-16.9); MCH 24.8 pg (25.7-33.7); MEAN CELL VOLUME 77.4 fl (80-96); MEAN PLT VOLUME 9.7 fl (7.5-11.1); PLATELET COUNT 195 K/MM3 (134-434); RBC 5.19 M/mm3 (4.00-5.60); WHITE BLOOD COUNT 8.2 K/mm3 (4.0-10.0)
--- NOTE | 2018-08-25 11:21 | CONSULT ---
[facility] Psychiatric Consult - Data Date of interview: 08/25/18 Admission source: [facility] Identifying data: Patient is a 33 year old single male, without children, unemployed, homeless, and not currrently receiving financial assistance. This is one of multiple admissions for patient. Patient admitted to for marijuana , cocaine, and opiate dependence. Substance Abuse History: Smoking Cessation. Smoking history: Current every day smoker. Have you smoked in the past 12 months: Yes. Aproximately how many cigarettes per day: 6. Cigars Per Day: 0. Hx Chewing Tobacco Use: No. Initiated information on smoking cessation: Yes. 'Breaking Loose' booklet given : 08/24/18. - Substances Abused. Heroin. Route: Injection. Frequency: 1- 2 times per week. Amount used: 3 bags. Age of first use: 28. Date of Last Use : 08/23/18. Cocaine. Route: Injection. Frequency: 3-6 times per week. Amount used: 2 bags. Age of first use: 27. Date of Last Use: 08/23/18. Marijuana/Hashish. Route: Smoking. Frequency: 1-2 times per week. Amount used : 1-2 joints. Age of first use: 18. Date of Last Use: 08/17/18 Medical History: Asthma Psychiatric History: Patient denies h/o psychiatric hospitalization. He reports h/o outpatient psychiatric care at the [facility], most recently in February of 2018. States he used to take wellbutrin and vistaril. Last accepted wellbutrin 2-3 months ago. Mr. Berman reports h/o depression. He denies h/o suicide attempt. At present, he reports stable mood but is requesting a sleep aid. Physical/Sexual Abuse/Trauma History: denies. Mental Status Exam - Mental Status Exam Alert and Oriented to: Time, Place, Person Cognitive Function: Good Patient Appearance: Well Groomed Mood: Euthymic Affect: Mood Congruent Patient Behavior: Appropriate, Cooperative Speech Pattern: Clear, Appropriate Voice Loudness: Normal Thought Process: Intact, Goal Oriented Thought Disorder: Not Present Hallucinations: Denies Suicidal Ideation: Denies Homicidal Ideation: Denies Insight/Judgement: Poor Sleep: Fair Appetite: Fair Muscle strength/Tone: Normal Gait/Station: Normal Psychiatric Findings - Problem List ([place] 1, 2,3) (1) Cocaine dependence Current Visit: Yes Status: Chronic Qualifiers: Substance use status: uncomplicated Qualified Code(s): F14.20 - Cocaine dependence, uncomplicated (2) Marijuana dependence Current Visit: Yes Status: Chronic (3) Opioid dependence with withdrawal Current Visit: Yes Status: Acute (4) Substance-induced sleep disorder Current Visit: Yes Status: Acute - Initial Treatment Plan Initial Treatment Plan: Psychoeducation provided. Detoxification in progress. Will order Trazodone 50mg qhs. Benefits and side effects discussed. Patient made aware of the risk of priapism when accepting trazodone. Verbal consent given.
[2018-08-25 11:24] LABS: URINE APPEARANCE CLEAR; URINE BILIRUBIN NEGATIVE (<2.0 mg/dL); URINE COLOR STRAW; URINE GLUCOSE (UA) NEGATIVE (NEGATIVE); URINE KETONE NEGATIVE (NEGATIVE); URINE LEUK ESTERASE NEGATIVE (NEGATIVE); URINE NITRITE NEGATIVE (NEGATIVE); URINE PROTEIN NEGATIVE (NEGATIVE); URINE UROBILINOGEN NEGATIVE mg/dL (0.2-1.0)
[2018-08-25 11:30] LABS: ALBUMIN 3.8 g/dl (3.4-5.0); ALK PHOS 87 U/L (45-117); ANION GAP 8 MMOL/L (8-16); BILIRUBIN,TOTAL 0.3 mg/dL (0.2-1); BLOOD UREA NITROGEN 10 mg/dL (7-18); CALCIUM 8.8 mg/dL (8.5-10.1); CHLORIDE 103 mmol/L (98-107); CO2 27 mmol/L (21-32); CREATININE 1.1 mg/dL (0.55-1.3); GLUCOSE,RANDOM 87 mg/dL (74-106); POTASSIUM 3.9 mmol/L (3.5-5.1); SGOT/AST 12 U/L (15-37); SGPT/ALT 19 U/L (13-61); SODIUM 138 mmol/L (136-145); TOT PROT 6.6 g/dl (6.4-8.2)
--- NOTE | 2018-08-25 16:34 | PN ---
BHS COWS - Scale Resting Pulse: 1= [place] 81-100 Sweatin= Chills/Flushing Restless Observation: 1= Difficult to Sit Still Pupil Size: 0= Normal to Room Light Bone or Joint Aches: 2= Severe Diffuse Aches Runny Nose/ Eye Tearin= None GI Upset > 30mins: 0= None Tremor Observation of Outstretched Hands: 0= None Yawning Observation: 2= >3x During Session Anxiety or Irritability: 2=Irritable/Anxious Goose Flesh Skin: 3=Piloerection COWS Score: 12 S Progress Note (SOAP) Subjective: Fatigue, H/A, Body Aches. Objective: PATIENT A & O X 3. IN NO ACUTE DISTRESS. 08/25/18 16:33 Vital Signs Temperature 98.4 F 08/25/18 13:28 Pulse Rate 88 08/25/18 13:28 Respiratory Rate 18 08/25/18 13:28 Blood Pressure 111/61 08/25/18 13:28 O2 Sat by Pulse Oximetry (%) Laboratory Tests 08/25/18 08/25/18 08/25/18 07:30 07:30 07:30 WBC 8.2 RBC 5.19 Hgb 12.9 Hct 40.1 MCV 77.4 L MCH 24.8 L MCHC 32.0 RDW 16.0 H Plt Count 195 MPV 9.7 Sodium 138 Potassium 3.9 Chloride 103 Carbon Dioxide 27 Anion Gap 8 BUN 10 Creatinine 1.1 Creat Clearance w eGFR > 60 Random Glucose 87 Calcium 8.8 Total Bilirubin 0.3 AST 12 L ALT 19 Alkaline Phosphatase 87 Total Protein 6.6 Albumin 3.8 Urine Color Urine Appearance Urine pH Ur Specific [place] Urine Protein Urine Glucose (UA) Urine Ketones Urine Blood Urine Nitrite Urine Bilirubin Urine Urobilinogen Ur Leukocyte Esterase RPR Titer HIV 1&2 Antibody Screen Negative HIV P24 Antigen Negative 08/25/18 08/25/18 07:30 07:30 WBC RBC Hgb Hct MCV MCH MCHC RDW Plt Count MPV Sodium Potassium Chloride Carbon Dioxide Anion Gap BUN Creatinine Creat Clearance w eGFR Random Glucose Calcium Total Bilirubin AST ALT Alkaline Phosphatase Total Protein Albumin Urine Color Straw Urine Appearance Clear Urine pH 6.0 Ur Specific [place] 1.009 L Urine Protein Negative Urine Glucose (UA) Negative Urine Ketones Negative Urine Blood Negative Urine Nitrite Negative Urine Bilirubin Negative Urine Urobilinogen Negative Ur Leukocyte Esterase Negative RPR Titer Nonreactive HIV 1&2 Antibody Screen HIV P24 Antigen LABS NOTED. Assessment: 08/25/18 16:33 WITHDRAWAL SYMPTOMS. Plan: CONTINUE DETOX. INCREASE DAILY PO FLUID INTAKE.
[2018-08-25] MEDS ORDERED: LACTOBACILLUS ACIDOPHILUS 1 TABLET PO SCH (18:00)
[2018-08-25] MEDS: ALBUTEROL SO4 2.5/IPRATROPIUM 0.5 INH SOL 3 ML VIAL.NEB. NEB PRN (18:36)
[2018-08-25] MEDS: traZODone HCL 50 MG TABLET (FP) PO SCH (22:16)
[2018-08-25] MEDS: THIAMINE HCL 100 MG TABLET (FP) PO SCH (22:16)
[2018-08-25] MEDS: LACTOBACILLUS ACIDOPHILUS 1 TABLET PO SCH (22:17)
[2018-08-26] MEDS: ALBUTEROL SO4 2.5/IPRATROPIUM 0.5 INH SOL 3 ML VIAL.NEB. NEB PRN (04:03)
[2018-08-26] MEDS: AMOX TR/POT CLAV 875MG/125MG TABLETS (FP) PO SCH ×2 (07:38→17:46)
[2018-08-26] MEDS: ALBUTEROL SO4 8 GM HFA INHALER IH PRN (09:26)
--- NOTE | 2018-08-26 09:48 | PN ---
BHS COWS - Scale Resting Pulse: 0= [place] 80 or Below Sweatin= Chills/Flushing Restless Observation: 1= Difficult to Sit Still Pupil Size: 1= Pupils >than Normal Bone or Joint Aches: 1= Mild Discomfort Runny Nose/ Eye Tearin= Nasal Congestion GI Upset > 30mins: 1= Stomach Cramp Tremor Observation of Outstretched Hands: 1= Tremor [place], Not Seen Yawning Observation: 1= 1-2x During Session Anxiety or Irritability: 2=Irritable/Anxious Goose Flesh Skin: 0=Smooth Skin COWS Score: 10 BHS Progress Note (SOAP) Subjective: body aches joints pain restlessness sweat tremor Objective: 08/26/18 14:56 Vital Signs Temperature 98.4 F 08/26/18 13:38 Pulse Rate 58 L 08/26/18 13:38 Respiratory Rate 18 08/26/18 13:38 Blood Pressure 116/70 08/26/18 13:38 O2 Sat by Pulse Oximetry (%) Laboratory Last Values WBC 8.2 K/mm3 (4.0-10.0) 08/25/18 07:30 RBC 5.19 M/mm3 (4.00-5.60) 08/25/18 07:30 Hgb 12.9 GM/dL (11.7-16.9) 08/25/18 07:30 Hct 40.1 % (35.4-49) 08/25/18 07:30 MCV 77.4 fl (80-96) L 08/25/18 07:30 MCH 24.8 pg (25.7-33.7) L 08/25/18 07:30 MCHC 32.0 g/dl (32.0-35.9) 08/25/18 07:30 RDW 16.0 % (11.9-15.9) H 08/25/18 07:30 Plt Count 195 K/MM3 (134-434) 08/25/18 07:30 MPV 9.7 fl (7.5-11.1) 08/25/18 07:30 Sodium 138 mmol/L (136-145) 08/25/18 07:30 Potassium 3.9 mmol/L (3.5-5.1) 08/25/18 07:30 Chloride 103 mmol/L (98-107) 08/25/18 07:30 Carbon Dioxide 27 mmol/L (21-32) 08/25/18 07:30 Anion Gap 8 MMOL/L (8-16) 08/25/18 07:30 BUN 10 mg/dL (7-18) 08/25/18 07:30 Creatinine 1.1 mg/dL (0.55-1.3) 08/25/18 07:30 Creat Clearance w eGFR > 60 (>60) 08/25/18 07:30 Random Glucose 87 mg/dL (74-106) 08/25/18 07:30 Calcium 8.8 mg/dL (8.5-10.1) 08/25/18 07:30 Total Bilirubin 0.3 mg/dL (0.2-1) 08/25/18 07:30 AST 12 U/L (15-37) L 08/25/18 07:30 ALT 19 U/L (13-61) 08/25/18 07:30 Alkaline Phosphatase 87 U/L (45-117) 08/25/18 07:30 Total Protein 6.6 g/dl (6.4-8.2) 08/25/18 07:30 Albumin 3.8 g/dl (3.4-5.0) 08/25/18 07:30 Urine Color Straw 08/25/18 07:30 Urine Appearance Clear 08/25/18 07:30 Urine pH 6.0 (5.0-8.0) 08/25/18 07:30 Ur Specific [place] 1.009 (1.010-1.035) L 08/25/18 07:30 Urine Protein Negative (NEGATIVE) 08/25/18 07:30 Urine Glucose (UA) Negative (NEGATIVE) 08/25/18 07:30 Urine Ketones Negative (NEGATIVE) 08/25/18 07:30 Urine Blood Negative (NEGATIVE) 08/25/18 07:30 Urine Nitrite Negative (NEGATIVE) 08/25/18 07:30 Urine Bilirubin Negative (<2.0 mg/dL) 08/25/18 07:30 Urine Urobilinogen Negative mg/dL (0.2-1.0) 08/25/18 07:30 Ur Leukocyte Esterase Negative (NEGATIVE) 08/25/18 07:30 RPR Titer Nonreactive (NONREACTIVE) 08/25/18 07:30 HIV 1&2 Antibody Screen Negative 08/25/18 07:30 HIV P24 Antigen Negative 08/25/18 07:30 lab noted Assessment: 08/26/18 14:57 withdrawal sx Plan: continue detox
[2018-08-26] MEDS ORDERED: METHADONE HCL 5 MG TABLET (FOR DETOX USE ONLY) PO ONE (10:00)
[2018-08-26] MEDS: BACITRACIN 0.9 GM PACKET TP SCH ×4 (10:15→22:30)
[2018-08-26] MEDS: PRENATAL VITAMINS W/ FOLIC ACID TABLET (FP) PO SCH (10:16)
[2018-08-26] MEDS: NICOTINE 14 MG/24 HOURS TOPICAL PATCH TD SCH (10:16)
[2018-08-26] MEDS: diazePAM 5 MG TABLET PO PRN ×3 (10:16→22:30)
[2018-08-26] MEDS: BUDESONIDE/FORMETEROL FUMARATE 80/4.5 mcg INHALER IH SCH ×2 (11:03→22:30)
[2018-08-26] MEDS: MAG HYDROX/AL HYDROX/SIMETH 30 ML UNIT-DOSE CUP PO PRN (18:50)
[2018-08-26] MEDS: traZODone HCL 50 MG TABLET (FP) PO SCH (22:30)
[2018-08-26] MEDS: THIAMINE HCL 100 MG TABLET (FP) PO SCH (22:30)
[2018-08-26] MEDS: LACTOBACILLUS ACIDOPHILUS 1 TABLET PO SCH (22:30)
[2018-08-27] MEDS: AMOX TR/POT CLAV 875MG/125MG TABLETS (FP) PO SCH ×2 (07:19→17:37)
[2018-08-27] MEDS ORDERED: METHADONE HCL 5 MG TABLET (FOR DETOX USE ONLY) PO ONE (10:00)
[2018-08-27] MEDS: NICOTINE 14 MG/24 HOURS TOPICAL PATCH TD SCH (10:09)
[2018-08-27] MEDS: diazePAM 5 MG TABLET PO PRN (10:09)
[2018-08-27] MEDS: BUDESONIDE/FORMETEROL FUMARATE 80/4.5 mcg INHALER IH SCH ×2 (11:34→22:22)
[2018-08-27] MEDS: PRENATAL VITAMINS W/ FOLIC ACID TABLET (FP) PO SCH (11:34)
[2018-08-27] MEDS: BACITRACIN 0.9 GM PACKET TP SCH ×4 (11:36→22:21)
--- NOTE | 2018-08-27 12:37 | PN ---
BHS COWS - Scale Resting Pulse: 1= [place] 81-100 Sweatin= Chills/Flushing Restless Observation: 0= Sits Still Pupil Size: 1= Pupils >than Normal Bone or Joint Aches: 1= Mild Discomfort Runny Nose/ Eye Tearin= Nasal Congestion GI Upset > 30mins: 1= Stomach Cramp Tremor Observation of Outstretched Hands: 1= Tremor [place], Not Seen Yawning Observation: 0= None Anxiety or Irritability: 1=Feels Anxious/Irritable Goose Flesh Skin: 0=Smooth Skin COWS Score: 8 BHS Progress Note (SOAP) Subjective: body aches tremor sweat low energy restlessness Objective: 08/27/18 12:39 Vital Signs Temperature 96 F L 08/27/18 09:04 Pulse Rate 100 H 08/27/18 09:04 Respiratory Rate 20 08/27/18 09:04 Blood Pressure 105/72 08/27/18 09:04 O2 Sat by Pulse Oximetry (%) Laboratory Last Values WBC 8.2 K/mm3 (4.0-10.0) 08/25/18 07:30 RBC 5.19 M/mm3 (4.00-5.60) 08/25/18 07:30 Hgb 12.9 GM/dL (11.7-16.9) 08/25/18 07:30 Hct 40.1 % (35.4-49) 08/25/18 07:30 MCV 77.4 fl (80-96) L 08/25/18 07:30 MCH 24.8 pg (25.7-33.7) L 08/25/18 07:30 MCHC 32.0 g/dl (32.0-35.9) 08/25/18 07:30 RDW 16.0 % (11.9-15.9) H 08/25/18 07:30 Plt Count 195 K/MM3 (134-434) 08/25/18 07:30 MPV 9.7 fl (7.5-11.1) 08/25/18 07:30 Sodium 138 mmol/L (136-145) 08/25/18 07:30 Potassium 3.9 mmol/L (3.5-5.1) 08/25/18 07:30 Chloride 103 mmol/L (98-107) 08/25/18 07:30 Carbon Dioxide 27 mmol/L (21-32) 08/25/18 07:30 Anion Gap 8 MMOL/L (8-16) 08/25/18 07:30 BUN 10 mg/dL (7-18) 08/25/18 07:30 Creatinine 1.1 mg/dL (0.55-1.3) 08/25/18 07:30 Creat Clearance w eGFR > 60 (>60) 08/25/18 07:30 Random Glucose 87 mg/dL (74-106) 08/25/18 07:30 Calcium 8.8 mg/dL (8.5-10.1) 08/25/18 07:30 Total Bilirubin 0.3 mg/dL (0.2-1) 08/25/18 07:30 AST 12 U/L (15-37) L 08/25/18 07:30 ALT 19 U/L (13-61) 08/25/18 07:30 Alkaline Phosphatase 87 U/L (45-117) 08/25/18 07:30 Total Protein 6.6 g/dl (6.4-8.2) 08/25/18 07:30 Albumin 3.8 g/dl (3.4-5.0) 08/25/18 07:30 Urine Color Straw 08/25/18 07:30 Urine Appearance Clear 08/25/18 07:30 Urine pH 6.0 (5.0-8.0) 08/25/18 07:30 Ur Specific [place] 1.009 (1.010-1.035) L 08/25/18 07:30 Urine Protein Negative (NEGATIVE) 08/25/18 07:30 Urine Glucose (UA) Negative (NEGATIVE) 08/25/18 07:30 Urine Ketones Negative (NEGATIVE) 08/25/18 07:30 Urine Blood Negative (NEGATIVE) 08/25/18 07:30 Urine Nitrite Negative (NEGATIVE) 08/25/18 07:30 Urine Bilirubin Negative (<2.0 mg/dL) 08/25/18 07:30 Urine Urobilinogen Negative mg/dL (0.2-1.0) 08/25/18 07:30 Ur Leukocyte Esterase Negative (NEGATIVE) 08/25/18 07:30 RPR Titer Nonreactive (NONREACTIVE) 08/25/18 07:30 HIV 1&2 Antibody Screen Negative 08/25/18 07:30 HIV P24 Antigen Negative 08/25/18 07:30 lab noted Assessment: 08/27/18 12:41 withdrawal sx Plan: continue detox
[2018-08-27] MEDS: LACTOBACILLUS ACIDOPHILUS 1 TABLET PO SCH (22:22)
[2018-08-27] MEDS: traZODone HCL 50 MG TABLET (FP) PO SCH (22:22)
[2018-08-27] MEDS: THIAMINE HCL 100 MG TABLET (FP) PO SCH (22:23)
[2018-08-27] MEDS: hydrOXYzine PAMOATE 50 MG CAPSULE (FP) PO PRN (22:23)
[2018-08-28] MEDS: AMOX TR/POT CLAV 875MG/125MG TABLETS (FP) PO SCH ×2 (07:31→16:46)
[2018-08-28] MEDS ORDERED: METHADONE HCL 10 MG TABLET (FOR DETOX USE ONLY) PO ONE (10:00)
[2018-08-28] MEDS: BACITRACIN 0.9 GM PACKET TP SCH ×4 (10:06→22:21)
[2018-08-28] MEDS: hydrOXYzine PAMOATE 50 MG CAPSULE (FP) PO PRN ×3 (10:06→22:23)
[2018-08-28] MEDS: PRENATAL VITAMINS W/ FOLIC ACID TABLET (FP) PO SCH (10:06)
[2018-08-28] MEDS: BUDESONIDE/FORMETEROL FUMARATE 80/4.5 mcg INHALER IH SCH ×2 (10:06→22:22)
[2018-08-28] MEDS: NICOTINE 14 MG/24 HOURS TOPICAL PATCH TD SCH (10:07)
--- NOTE | 2018-08-28 13:47 | PN ---
[facility] Progress Note Note: PATIENT CONTINUES WITH DETOX REGIMEN. STATES HE FEELS BETTER SINCE ADMISSION. C/ O INTERRUPTED SLEEP. Vital Signs Temperature 97.8 F 08/28/18 09:36 Pulse Rate 77 08/28/18 09:36 Respiratory Rate 17 08/28/18 09:36 Blood Pressure 117/64 08/28/18 09:36 O2 Sat by Pulse Oximetry (%) Laboratory Tests 08/25/18 08/25/18 08/25/18 07:30 07:30 07:30 WBC 8.2 RBC 5.19 Hgb 12.9 Hct 40.1 MCV 77.4 L MCH 24.8 L MCHC 32.0 RDW 16.0 H Plt Count 195 MPV 9.7 Sodium 138 Potassium 3.9 Chloride 103 Carbon Dioxide 27 Anion Gap 8 BUN 10 Creatinine 1.1 Creat Clearance w eGFR > 60 Random Glucose 87 Calcium 8.8 Total Bilirubin 0.3 AST 12 L ALT 19 Alkaline Phosphatase 87 Total Protein 6.6 Albumin 3.8 Urine Color Urine Appearance Urine pH Ur Specific [place] Urine Protein Urine Glucose (UA) Urine Ketones Urine Blood Urine Nitrite Urine Bilirubin Urine Urobilinogen Ur Leukocyte Esterase RPR Titer HIV 1&2 Antibody Screen Negative HIV P24 Antigen Negative 08/25/18 08/25/18 07:30 07:30 WBC RBC Hgb Hct MCV MCH MCHC RDW Plt Count MPV Sodium Potassium Chloride Carbon Dioxide Anion Gap BUN Creatinine Creat Clearance w eGFR Random Glucose Calcium Total Bilirubin AST ALT Alkaline Phosphatase Total Protein Albumin Urine Color Straw Urine Appearance Clear Urine pH 6.0 Ur Specific [place] 1.009 L Urine Protein Negative Urine Glucose (UA) Negative Urine Ketones Negative Urine Blood Negative Urine Nitrite Negative Urine Bilirubin Negative Urine Urobilinogen Negative Ur Leukocyte Esterase Negative RPR Titer Nonreactive HIV 1&2 Antibody Screen HIV P24 Antigen PE: ALERT AND ORIENTED X 3 SKIN WARM AND DRY CAR S1S2 RESP CTA BL, NO WHEEZES OR RALES EXT FULL ROM, AMB AD CHRIS A/P WITHDRAWAL SX CONTINUE DETOX PATIENT REHAB REFERRAL PENDING FOR TOMORROW AM ENCOURAGE FLUIDS CONTINUE TO MONITOR CLINICALLY
[2018-08-28] MEDS: LACTOBACILLUS ACIDOPHILUS 1 TABLET PO SCH (22:20)
[2018-08-28] MEDS: THIAMINE HCL 100 MG TABLET (FP) PO SCH (22:21)
[2018-08-28] MEDS: traZODone HCL 50 MG TABLET (FP) PO SCH (22:21)
[2018-08-29] MEDS ORDERED: METHADONE HCL 5 MG TABLET (FOR DETOX USE ONLY) PO ONE (06:00)
[2018-08-29] MEDS: AMOX TR/POT CLAV 875MG/125MG TABLETS (FP) PO SCH (08:16)
[2018-08-29] MEDS: NICOTINE 14 MG/24 HOURS TOPICAL PATCH TD SCH (10:17)
[2018-08-29] MEDS: BUDESONIDE/FORMETEROL FUMARATE 80/4.5 mcg INHALER IH SCH (10:17)
[2018-08-29] MEDS: PRENATAL VITAMINS W/ FOLIC ACID TABLET (FP) PO SCH (10:17)
[2018-08-29] MEDS: BACITRACIN 0.9 GM PACKET TP SCH ×2 (10:17→14:00)
[2018-08-29] MEDS: hydrOXYzine PAMOATE 50 MG CAPSULE (FP) PO PRN (10:19)
[2018-08-29 10:29] VITALS: BP 112/70; PULSE 92; TEMP 97.1
--- NOTE | 2018-08-29 11:28 | DS ---
[facility] Detox Discharge Summary Admission Date: 08/24/18 Discharge Date: 08/29/18 - History Present History: Cannabis Dependence, Cocaine Dependence, Opioid Dependence Additional Comments: PT REPORTS HE HAS BEEN REFERRED TO [address] [place] [address] BY COUNSELOR AND TO RETURN TO [address] [place] [address] FOR REHAB ON 08/31/18. ALERT O X 3. NAD. PT REPORTS UNDERSTANDING OF HIS TREATMENT PLAN EXPLAINED TO HIM BY HIS COUNSELOR. PT INSTRUCTED TO MIR[employer] HIS RX ANTIBIOTICS FROM [facility] BEFORE EXITING. Pertinent Past History: PLEASE SEE DX BELOW - Physical Exam Results Vital Signs: Vital Signs Temperature 97.1 F L 08/29/18 10:29 Pulse Rate 92 H 08/29/18 10:29 Respiratory Rate 16 08/29/18 10:29 Blood Pressure 112/70 08/29/18 10:29 O2 Sat by Pulse Oximetry (%) Pertinent Admission Physical Exam Findings: WITHDRAWAL SX Laboratory Tests 08/25/18 08/25/18 08/25/18 07:30 07:30 07:30 WBC 8.2 RBC 5.19 Hgb 12.9 Hct 40.1 MCV 77.4 L MCH 24.8 L MCHC 32.0 RDW 16.0 H Plt Count 195 MPV 9.7 Sodium 138 Potassium 3.9 Chloride 103 Carbon Dioxide 27 Anion Gap 8 BUN 10 Creatinine 1.1 Creat Clearance w eGFR > 60 Random Glucose 87 Calcium 8.8 Total Bilirubin 0.3 AST 12 L ALT 19 Alkaline Phosphatase 87 Total Protein 6.6 Albumin 3.8 Urine Color Urine Appearance Urine pH Ur Specific [place] Urine Protein Urine Glucose (UA) Urine Ketones Urine Blood Urine Nitrite Urine Bilirubin Urine Urobilinogen Ur Leukocyte Esterase RPR Titer HIV 1&2 Antibody Screen Negative HIV P24 Antigen Negative 08/25/18 08/25/18 07:30 07:30 WBC RBC Hgb Hct MCV MCH MCHC RDW Plt Count MPV Sodium Potassium Chloride Carbon Dioxide Anion Gap BUN Creatinine Creat Clearance w eGFR Random Glucose Calcium Total Bilirubin AST ALT Alkaline Phosphatase Total Protein Albumin Urine Color Straw Urine Appearance Clear Urine pH 6.0 Ur Specific [place] 1.009 L Urine Protein Negative Urine Glucose (UA) Negative Urine Ketones Negative Urine Blood Negative Urine Nitrite Negative Urine Bilirubin Negative Urine Urobilinogen Negative Ur Leukocyte Esterase Negative RPR Titer Nonreactive HIV 1&2 Antibody Screen HIV P24 Antigen - Treatment Hospital Course: Detox Protocol Followed, Detoxed Safely, Responded well, Discharged Condition Good, Rehab Referral Accepted Patient has Accepted a Rehab Referral to: [facility] - Medication Discharge Medications: Ambulatory Orders Albuterol Sulfate Inhaler - [Ventolin HFA Inhaler -] 2 inh PO Q4H PRN 11/24/15 Bupropion HCl [Wellbutrin -] 150 mg PO DAILY 08/24/18 Hydroxyzine HCl 50 mg PO BID 08/24/18 Amox-Tr/K Cl [Augmentin 875-125mg Tablet -] 1 tab PO BID@0800,1730 #10 tablet - Diagnosis (1) Cellulitis Current Visit: Yes Status: Acute Qualifiers: Site of cellulitis of extremity: upper extremity Laterality: right (2) Opioid dependence with withdrawal Current Visit: Yes Status: Acute (3) Asthma Current Visit: Yes Status: Chronic Qualifiers: Asthma severity: mild Asthma persistence: intermittent Asthma complication type: uncomplicated Qualified Code(s): J45.20 - Mild intermittent asthma, uncomplicated (4) Cocaine dependence Current Visit: Yes Status: Acute Qualifiers: Substance use status: uncomplicated Qualified Code(s): F14.20 - Cocaine dependence, uncomplicated (5) Marijuana dependence Current Visit: Yes Status: Acute (6) Nicotine dependence Current Visit: Yes Status: Acute Qualifiers: Nicotine product type: cigarettes Substance use status: in withdrawal Qualified Code(s): F17.213 - Nicotine dependence, cigarettes, with withdrawal - AMA Did Patient Leave Against Medical Advice: No
== END 2018-08-29 13:25 | disposition home or self-care (01) | DRG 773 ==
LOC: YASAS 12:21 → Y3N 15:50
PROC: HZ2ZZZZ Detoxification Services for Substance Abuse Treatment (ICD-10-PCS; principal; 2018-08-24)
DX: F11.23 Opioid dependence with withdrawal (principal); F14.20 Cocaine dependence, uncomplicated; F12.20 Cannabis dependence, uncomplicated; F17.213 Nicotine dependence, cigarettes, with withdrawal; F19.282 Other psychoactive substance dependence with psychoactive substance-induced sleep disorder; F32.9 Major depressive disorder, single episode, unspecified; L03.113 Cellulitis of right upper limb; J45.20 Mild intermittent asthma, uncomplicated; Z59.0 Homelessness
CPT/HCPCS: 36415; 80053; 81003; 85027; 86593; 87389; 94640

== ENCOUNTER 2018-08-31 13:09 | Inpatient (IN) | payer OTHER ==
[2018-08-31 13:45] VITALS: BMI 25.5
--- NOTE | 2018-08-31 15:47 | HP ---
CIWA Score - Admission Criteria [facility]ASAS Guidelines: Admission for Medically Managed Detox: Requires at least one of the followin. CIWA greater than 12 2. Seizures within the past 24 hours 3. Delirium tremens within the past 24 hours 4. Hallucinations within the past 24 hours 5. Acute intervention needed for co occurring medical disorder 6. Acute intervention needed for co occurring psychiatric disorder 7. Severe withdrawal that cannot be handled at a lower level of care (continued vomiting, continued diarrhea, abnormal vital signs) requiring intravenous medication and/or fluids 8. Admission ROS S - HPI Chief Complaint: i need help to stop using heroin and cocaine Allergies/Adverse Reactions: Allergies Allergy/AdvReac Type Severity Reaction Status Date / Time peanut Allergy Severe Difficulty Verified 08/31/18 15:36 Breathing No Known Drug Allergies Allergy Verified 08/31/18 15:36 nut - unspecified [nut] Allergy Difficulty Verified 08/31/18 15:36 Breathing History of Present Illness: this 33 years old male with heroin and cocaine dependence and marijuana dependence,seeking rehab,last detox [facility] 08/24/18 to 08/29/18 nicotine dependence asthma abscess of right elbow on augmentin 875 mgs po bid has medications with him insomnia hepatitis c treated longest period of sobriety 7 months - Ebola screening Have you traveled outside of the country in the last 21 days: No Have you had contact with anyone from an Ebola affected area: No Have you been sick,other than usual withdrawal symptoms: No Do you have a fever: No - Review of Systems Constitutional: No Symptoms Reported EENT: reports: No Symptoms Reported Respiratory: reports: No Symptoms reported, Other (asthma) Cardiac: reports: No Symptoms Reported GI: reports: Nausea, Abdominal cramping : reports: No Symptoms Reported Musculoskeletal: reports: No Symptoms Reported Integumentary: reports: No Symptoms Reported Neuro: reports: No Symptoms reported Endocrine: reports: No Symptoms Reported Hematology: reports: No Symptoms Reported Psychiatric: reports: No Sypmtoms Reported, Judgement Intact, Mood/Affect Appropiate, Orientated x3 (insomnia) Patient History - Patient Medical History Hx Anemia: No Hx Asthma: Yes (MDI) Hx Chronic Obstructive Pulmonary Disease (COPD): No Hx Cancer: No Hx Cardiac Disorders: No Hx Congestive Heart Failure: No Hx Hypertension: No Hx Hypercholesterolemia: No Hx Pacemaker: No HX Cerebrovascular Accident: No Hx Seizures: No Hx Diabetes: No Hx Gastrointestinal Disorders: No Hx Liver Disease: No Hx Genitourinary Disorders: No Hx Sexually Transmitted Disorders: No Hx Renal Disease (ESRD): No Hx Thyroid Disease: No Hx Human Immunodeficiency Virus (HIV): No (negative LAST 08/25/18) Hx Hepatitis C: No Hx Depression: Yes Hx Suicide Attempt: No (DENIES) Hx Bipolar Disorder: No Hx Schizophrenia: No Other Medical History: insomnia,no suicidal,no homicidal - Patient Surgical History Past Surgical History: No Hx Neurologic Surgery: No Hx Cataract Extraction: No Hx Cardiac Surgery: No Hx Lung Surgery: No Hx Breast Surgery: No Hx Breast Biopsy: No Hx Abdominal Surgery: No Hx Appendectomy: No Hx Cholecystectomy: No Hx Genitourinary Surgery: No Hx Section: No Hx Orthopedic Surgery: No Anesthesia Reaction: No - PPD History Previous Implant?: Yes Documented Results: Negative w/proof Date: 08/26/18 Results: NEGATIVE PPD to be Administered?: No - Smoking Cessation Smoking history: Current every day smoker Have you smoked in the past 12 months: Yes Aproximately how many cigarettes per day: 6 Cigars Per Day: 0 Hx Chewing Tobacco Use: No Initiated information on smoking cessation: Yes 'Breaking Loose' booklet given: 08/31/18 - Substance & Tx. History Hx Alcohol Use: No Hx Substance Use: Yes Substance Use Type: Cocaine, Heroin Hx Substance Use Treatment: Yes ([facility] 08/24/18 to 08/29/18) - Substances Abused Heroin Route: Injection Frequency: Daily Amount used: 3-4 bags Age of first use: 29 Date of Last Use: 08/29/18 Cocaine Route: Injection Frequency: Daily Amount used: $50 Age of first use: 20 Date of Last Use: 08/29/18 Marijuana/Hashish Route: Smoking Frequency: Daily Amount used: 2 blunts Age of first use: 18 Date of Last Use: 08/24/18 Family Disease History - Family Disease History Family Disease History: Diabetes: Grandparent, Other: Father (alcohol,sober), Mother Admission Physical Exam [facility] - Vital Signs Vital Signs: Vital Signs - 24 hr 08/31/18 13:43 Temperature 97.1 F L Pulse Rate 72 Respiratory 20 Rate Blood Pressure 113/62 - Physical General Appearance: Yes: Within Normal Limits HEENTM: Yes: Within Normal Limits, CONSTATNINO, Pharynx Normal Respiratory: Yes: Within Normal Limits, Lungs Clear, Normal Breath Sounds Neck: Yes: Within Normal Limits, Supple, Trachea in good position Breast: Yes: Within Normal Limits Cardiology: Yes: Regular Rhythm, Regular Rate, S1, S2, Bradycardia Abdominal: Yes: Within Normal Limits, Normal Bowel Sounds, Non Tender, Flat, Soft Genitourinary: Yes: Within Normal Limits Back: Yes: Within Normal Limits Musculoskeletal: Yes: Within Normal Limits Extremities: Yes: Other (resolving abscess of right elbow) Neurological: Yes: surgery aide II-XII NML intact, Fully Oriented, Alert, Motor Strength 5/5 Integumentary: Yes: Dry, Track Choe (resolving abscess of right elbow) Lymphatic: Yes: Within Normal Limits - Diagnostic (1) Opioid dependence Current Visit: Yes Status: Acute (2) Cocaine dependence Current Visit: No Status: Acute Qualifiers: Substance use status: uncomplicated Qualified Code(s): F14.20 - Cocaine dependence, uncomplicated (3) Marijuana dependence Current Visit: No Status: Acute (4) Nicotine dependence Current Visit: No Status: Acute Qualifiers: Nicotine product type: cigarettes Substance use status: in withdrawal Qualified Code(s): F17.213 - Nicotine dependence, cigarettes, with withdrawal (5) Asthma Current Visit: No Status: Chronic Qualifiers: Asthma severity: mild Asthma persistence: intermittent Asthma complication type: uncomplicated Qualified Code(s): J45.20 - Mild intermittent asthma, uncomplicated (6) Insomnia Current Visit: Yes Status: Acute (7) Cellulitis Current Visit: No Status: Acute Qualifiers: Site of cellulitis of extremity: upper extremity Laterality: right Cleared for Admission [facility] - Detox or Rehab Claeared for Rehab Admission: Yes [facility] Breath Alcohol Content Breath Alcohol Content: 0 Urine Drug Screen - Results Drug Screen Negative: No Urine Drug Screen Results: THC-Marijuana, HARDEEP-Cocaine, BZO-Benzodiazepines, MTD- Methadone, FEN-Fentanyl Inpatient Rehab Admission - Initial Determination Are CD services needed?: Yes Free of communicable disease: Yes Not in need of hospitalization: Yes - Rehab Admission Criteria Previous failed treatment: Yes Poor recovery environment: Yes Comorbidities: Yes Lacks judgement: No Patient is meeting Inpatient Rehab admission criteria:: Yes
[2018-08-31] MEDS ORDERED: ACETAMINOPHEN 325 MG TABLET (FP) PO PRN (15:57)
[2018-08-31] MEDS ORDERED: guaiFENesin/D-METHORPHAN HB 10 ML UNIT-DOSE CUPS PO PRN (15:57)
[2018-08-31] MEDS ORDERED: MAGNESIUM HYDROX 2400MG/30ML ORAL SUSPENSION 30 ML CUP PO PRN (15:57)
[2018-08-31] MEDS ORDERED: MENTHOL/PHENOL 1 EACH UD MM PRN (15:57)
[2018-08-31] MEDS ORDERED: IBUPROFEN 400 MG TABLET (FP) PO PRN (15:57)
[2018-08-31] MEDS ORDERED: P-EPHED 60MG/TRIPROLIDI 2.5MG TABLET PO PRN (15:57)
[2018-08-31] MEDS ORDERED: LOPERAMIDE HCL 2 MG CAPSULE PO PRN (15:57)
[2018-08-31] MEDS ORDERED: MAGNESIUM CITRATE 300 ML BOTTLE PO PRN (15:57)
[2018-08-31] MEDS ORDERED: MAG HYDROX/AL HYDROX/SIMETH 30 ML UNIT-DOSE CUP PO PRN (15:57)
[2018-08-31] MEDS: NICOTINE 21 MG/24 HOURS TOPICAL PATCH TD SCH (17:35)
[2018-08-31] MEDS: AMOX TR/POT CLAV 875MG/125MG TABLETS (FP) PO SCH (18:20)
[2018-08-31] MEDS: THIAMINE HCL 100 MG TABLET (FP) PO SCH (21:16)
[2018-08-31] MEDS: MELATONIN 5 MG TABLETS PO PRN (21:17)
--- NOTE | 2018-09-01 06:37 | HP ---
Psychiatrist Admission - Data Date of interview: 09/01/18 Admission source: Self-referred Identifying data: This is the first [facility] admission for this 33 years old single Black male, unemployed with no source of income, homeless Medical History: Significant for bronchial asthma, history of treatment for hepatitis C and surgery for I&D abscess right elbow. Smokes 6 cigarettes daily Psychiatric History: Patient reports that his first psychiatric contact was in 1999 when he was diagnosed with MDD and treated with psychotherapy. He received psychotherapy to 2011. In February 2018, he started seeing a psychiatrist at [facility] and was prescribed Wellbutrin XL 150 mg po daily for depression. He has not been on medication for the past 2-3 month due to problem with medical insurance coverage.However he claims that he last attended the clinic last June. Denies previous psychiatric hospitalization or suicidal attempt. At present, reports feeling and sleeping well Physical/Sexual Abuse/Trauma History: Denies history of emotional, physical or sexual abuse as well as DV relationship. No service Vital Signs: Vital Signs - 24 hr 08/31/18 08/31/18 09/01/18 13:43 22:00 01:39 Temperature 97.1 F L Pulse Rate 72 Respiratory 20 16 Rate Blood Pressure 113/62 113/62 09/01/18 03:30 Temperature Pulse Rate Respiratory 16 Rate Blood Pressure Allergies/Adverse Reactions: Allergies Allergy/AdvReac Type Severity Reaction Status Date / Time peanut Allergy Severe Difficulty Verified 08/31/18 15:36 Breathing No Known Drug Allergies Allergy Verified 08/31/18 15:36 nut - unspecified [nut] Allergy Difficulty Verified 08/31/18 15:36 Breathing Date of last physical exam: 08/31/18 Concur with the findings of this exam: Yes - Substance Abuse/Tx History Hx Alcohol Use: No Hx Substance Use: Yes Substance Use Type: Cocaine (Started using cocaine at age 20, consumes $50 worth daily. Last used on 08/29/18), Heroin (Started using heroin at age 29, consumes 3-4 bags daily. Last used on 08/29/18), Marijuana (Started smoking marijuana at age 18, consumes 2 blunts daily. Last smoked on 08/24/18) Hx Substance Use Treatment: Yes (4 previous inpt detox @ [facility]) Mental Status Exam - Mental Status Exam Alert and Oriented to: Place, Person Cognitive Function: Fair Patient Appearance: Well Groomed Mood: Hopeful, Euthymic Patient Behavior: Cooperative Speech Pattern: Clear Voice Loudness: Normal Thought Process: Intact, Goal Oriented Thought Disorder: Not Present Hallucinations: Denies Suicidal Ideation: Denies Homicidal Ideation: Denies Insight/Judgement: Fair Sleep: Poorly Appetite: Good Muscle strength/Tone: Normal Gait/Station: Normal Psychiatric Findings - Problem List ([place] 1, 2,3) (1) Opioid dependence Current Visit: Yes Status: Acute (2) Cocaine dependence Current Visit: No Status: Acute Qualifiers: Substance use status: uncomplicated Qualified Code(s): F14.20 - Cocaine dependence, uncomplicated (3) Cannabis dependence Current Visit: Yes Status: Acute (4) Nicotine dependence Current Visit: No Status: Chronic Qualifiers: Nicotine product type: cigarettes Substance use status: in withdrawal Qualified Code(s): F17.213 - Nicotine dependence, cigarettes, with withdrawal (5) MDD (major depressive disorder) Current Visit: No Status: Chronic Qualifiers: Major depression recurrence: single episode Active/Remission status: remission status unspecified Qualified Code(s): F32.9 - Major depressive disorder, single episode, unspecified (6) Substance-induced sleep disorder Current Visit: Yes Status: Acute (7) Asthma Current Visit: Yes Status: Chronic (8) Hepatitis C Current Visit: Yes Status: Resolved - Initial Treatment Plan Initial Treatment Plan: 1) Resume Wellbutrin XL 150 mg po daily. 2) Start Trazadone 50 mg po HS. 3) Monitor progress
[2018-09-01] MEDS: AMOX TR/POT CLAV 875MG/125MG TABLETS (FP) PO SCH ×2 (07:06→16:57)
[2018-09-01] MEDS: NICOTINE 21 MG/24 HOURS TOPICAL PATCH TD SCH (11:02)
[2018-09-01] MEDS: PRENATAL VITAMINS W/ FOLIC ACID TABLET (FP) PO SCH (11:02)
[2018-09-01] MEDS: hydrOXYzine PAMOATE 50 MG CAPSULE (FP) PO PRN (15:01)
[2018-09-01] MEDS: THIAMINE HCL 100 MG TABLET (FP) PO SCH (21:32)
[2018-09-01] MEDS: MELATONIN 5 MG TABLETS PO PRN (21:32)
[2018-09-01] MEDS: traZODone HCL 50 MG TABLET (FP) PO SCH (21:32)
[2018-09-02] MEDS ORDERED: PT OWN MED DRAWER 7, Y5N ONE ×2 (07:00→07:04)
[2018-09-02] MEDS: ALBUTEROL SO4 8 GM HFA INHALER IH PRN (07:04)
[2018-09-02] MEDS: AMOX TR/POT CLAV 875MG/125MG TABLETS (FP) PO SCH ×2 (07:05→16:58)
[2018-09-02] MEDS: PRENATAL VITAMINS W/ FOLIC ACID TABLET (FP) PO SCH (10:17)
[2018-09-02] MEDS: NICOTINE 21 MG/24 HOURS TOPICAL PATCH TD SCH (10:17)
[2018-09-02] MEDS: hydrOXYzine PAMOATE 50 MG CAPSULE (FP) PO PRN (14:00)
[2018-09-02] MEDS: THIAMINE HCL 100 MG TABLET (FP) PO SCH (21:50)
[2018-09-02] MEDS: MELATONIN 5 MG TABLETS PO PRN (21:50)
[2018-09-02] MEDS: traZODone HCL 50 MG TABLET (FP) PO SCH (21:50)
[2018-09-03] MEDS: AMOX TR/POT CLAV 875MG/125MG TABLETS (FP) PO SCH (07:15)
[2018-09-03] MEDS: PRENATAL VITAMINS W/ FOLIC ACID TABLET (FP) PO SCH (09:58)
[2018-09-03] MEDS: NICOTINE 21 MG/24 HOURS TOPICAL PATCH TD SCH (09:58)
[2018-09-03] MEDS ORDERED: BENZOYL PEROXIDE 5% 60 GM GEL..GRAM. TP ONE (11:33)
--- NOTE | 2018-09-03 11:34 | PN ---
[facility] Progress Note Note: PT C/O FACIAL RASH WHICH COMES AND GOES. USES APPLE CIDER VINEGAR WHICH USUALLY CLEARS IT UP. Vital Signs 09/03/18 06:46 Temperature 97.8 F Pulse Rate 70 Respiratory 18 Rate Blood Pressure 115/67 DI:FACIAL ACNE PLAN;BENZOYL PEROXIDE 5% TP GEL DAILY
[2018-09-03] MEDS: BACITRACIN 0.9 GM PACKET TP SCH (21:10)
[2018-09-03] MEDS: traZODone HCL 50 MG TABLET (FP) PO SCH (21:10)
[2018-09-03] MEDS: hydrOXYzine PAMOATE 50 MG CAPSULE (FP) PO PRN (21:11)
[2018-09-03] MEDS: THIAMINE HCL 100 MG TABLET (FP) PO SCH (21:11)
[2018-09-04] MEDS: BACITRACIN 0.9 GM PACKET TP SCH ×2 (10:35→22:05)
[2018-09-04] MEDS: PRENATAL VITAMINS W/ FOLIC ACID TABLET (FP) PO SCH (10:35)
[2018-09-04] MEDS: NICOTINE 21 MG/24 HOURS TOPICAL PATCH TD SCH (10:35)
[2018-09-04] MEDS: BENZOYL PEROXIDE 5% 60 GM GEL..GRAM. TP SCH (10:35)
[2018-09-04] MEDS: hydrOXYzine PAMOATE 50 MG CAPSULE (FP) PO PRN (22:05)
[2018-09-04] MEDS: MELATONIN 5 MG TABLETS PO PRN (22:05)
[2018-09-04] MEDS: THIAMINE HCL 100 MG TABLET (FP) PO SCH (22:05)
[2018-09-04] MEDS: traZODone HCL 50 MG TABLET (FP) PO SCH (22:05)
[2018-09-05] MEDS ORDERED: PT OWN MED DRAWER 7, Y5N ONE (08:30)
[2018-09-05] MEDS: BENZOYL PEROXIDE 5% 60 GM GEL..GRAM. TP SCH (09:28)
[2018-09-05] MEDS: NICOTINE 21 MG/24 HOURS TOPICAL PATCH TD SCH (09:28)
[2018-09-05] MEDS: PRENATAL VITAMINS W/ FOLIC ACID TABLET (FP) PO SCH (09:28)
[2018-09-05] MEDS: BACITRACIN 0.9 GM PACKET TP SCH ×2 (09:28→21:34)
[2018-09-05] MEDS: THIAMINE HCL 100 MG TABLET (FP) PO SCH (21:35)
[2018-09-05] MEDS: MELATONIN 5 MG TABLETS PO PRN (21:35)
[2018-09-05] MEDS: traZODone HCL 50 MG TABLET (FP) PO SCH (21:35)
[2018-09-06] MEDS: NICOTINE 21 MG/24 HOURS TOPICAL PATCH TD SCH (10:06)
[2018-09-06] MEDS: PRENATAL VITAMINS W/ FOLIC ACID TABLET (FP) PO SCH (10:06)
[2018-09-06] MEDS: BACITRACIN 0.9 GM PACKET TP SCH ×2 (10:07→22:14)
[2018-09-06] MEDS: BENZOYL PEROXIDE 5% 60 GM GEL..GRAM. TP SCH (10:07)
[2018-09-06] MEDS: hydrOXYzine PAMOATE 50 MG CAPSULE (FP) PO PRN (17:49)
[2018-09-06] MEDS: THIAMINE HCL 100 MG TABLET (FP) PO SCH (22:14)
[2018-09-06] MEDS: traZODone HCL 50 MG TABLET (FP) PO SCH (22:14)
[2018-09-06] MEDS: MELATONIN 5 MG TABLETS PO PRN (22:15)
[2018-09-07] MEDS: PRENATAL VITAMINS W/ FOLIC ACID TABLET (FP) PO SCH (11:04)
[2018-09-07] MEDS: BENZOYL PEROXIDE 5% 60 GM GEL..GRAM. TP SCH (11:05)
[2018-09-07] MEDS: NICOTINE 21 MG/24 HOURS TOPICAL PATCH TD SCH (11:05)
[2018-09-07] MEDS: BACITRACIN 0.9 GM PACKET TP SCH ×2 (11:05→21:45)
[2018-09-07] MEDS: traZODone HCL 50 MG TABLET (FP) PO SCH (21:45)
[2018-09-07] MEDS: THIAMINE HCL 100 MG TABLET (FP) PO SCH (21:45)
[2018-09-08] MEDS: PRENATAL VITAMINS W/ FOLIC ACID TABLET (FP) PO SCH (09:46)
[2018-09-08] MEDS: BACITRACIN 0.9 GM PACKET TP SCH ×2 (09:46→21:38)
--- NOTE | 2018-09-08 09:46 | PN ---
S Progress Note Note: NOTIFIED BY RN THAT PATIENT HAS DANDRUFF AND WOULD LIKE SHAMPOO TREATMENT. HIPOLITO BLUE SHAMPOO ORDERED. CONTINUE TO MONITOR. Vital Signs Temperature 97.9 F 09/08/18 06:50 Pulse Rate 67 09/08/18 06:50 Respiratory Rate 18 09/08/18 06:50 Blood Pressure 106/61 09/08/18 06:50 O2 Sat by Pulse Oximetry (%)
[2018-09-08] MEDS: BENZOYL PEROXIDE 5% 60 GM GEL..GRAM. TP SCH (10:25)
[2018-09-08] MEDS: NICOTINE 21 MG/24 HOURS TOPICAL PATCH TD SCH (10:25)
[2018-09-08] MEDS: SELENIUM SULFIDE 2.5% LOTION 4 OZ. TP SCH (10:26)
[2018-09-08] MEDS: traZODone HCL 50 MG TABLET (FP) PO SCH (21:39)
[2018-09-08] MEDS: MELATONIN 5 MG TABLETS PO PRN (21:39)
[2018-09-08] MEDS: THIAMINE HCL 100 MG TABLET (FP) PO SCH (21:39)
[2018-09-09] MEDS: SELENIUM SULFIDE 2.5% LOTION 4 OZ. TP SCH (09:52)
[2018-09-09] MEDS: NICOTINE 21 MG/24 HOURS TOPICAL PATCH TD SCH (09:52)
[2018-09-09] MEDS: PRENATAL VITAMINS W/ FOLIC ACID TABLET (FP) PO SCH (09:52)
[2018-09-09] MEDS: BACITRACIN 0.9 GM PACKET TP SCH ×2 (09:52→22:05)
[2018-09-09] MEDS: BENZOYL PEROXIDE 5% 60 GM GEL..GRAM. TP SCH (09:53)
[2018-09-09] MEDS: MELATONIN 5 MG TABLETS PO PRN (22:05)
[2018-09-09] MEDS: traZODone HCL 50 MG TABLET (FP) PO SCH (22:05)
[2018-09-09] MEDS: THIAMINE HCL 100 MG TABLET (FP) PO SCH (22:06)
[2018-09-10] MEDS: NICOTINE 21 MG/24 HOURS TOPICAL PATCH TD SCH (09:54)
[2018-09-10] MEDS: BACITRACIN 0.9 GM PACKET TP SCH ×2 (09:54→21:50)
[2018-09-10] MEDS: PRENATAL VITAMINS W/ FOLIC ACID TABLET (FP) PO SCH (09:54)
[2018-09-10] MEDS: BENZOYL PEROXIDE 5% 60 GM GEL..GRAM. TP SCH (09:55)
[2018-09-10] MEDS: SELENIUM SULFIDE 2.5% LOTION 4 OZ. TP SCH (09:55)
[2018-09-10] MEDS: traZODone HCL 50 MG TABLET (FP) PO SCH (21:50)
[2018-09-10] MEDS: THIAMINE HCL 100 MG TABLET (FP) PO SCH (21:50)
[2018-09-11] MEDS: PRENATAL VITAMINS W/ FOLIC ACID TABLET (FP) PO SCH (10:01)
[2018-09-11] MEDS: NICOTINE 21 MG/24 HOURS TOPICAL PATCH TD SCH (10:01)
[2018-09-11] MEDS: BACITRACIN 0.9 GM PACKET TP SCH ×2 (10:01→21:49)
[2018-09-11] MEDS: BENZOYL PEROXIDE 5% 60 GM GEL..GRAM. TP SCH (10:02)
[2018-09-11] MEDS: SELENIUM SULFIDE 2.5% LOTION 4 OZ. TP SCH (10:03)
[2018-09-11] MEDS: ALBUTEROL SO4 8 GM HFA INHALER IH PRN (16:38)
[2018-09-11] MEDS: traZODone HCL 50 MG TABLET (FP) PO SCH (21:49)
[2018-09-11] MEDS: THIAMINE HCL 100 MG TABLET (FP) PO SCH (21:49)
[2018-09-12] MEDS: ALBUTEROL SO4 8 GM HFA INHALER IH PRN (04:40)
[2018-09-12] MEDS: BENZOYL PEROXIDE 5% 60 GM GEL..GRAM. TP SCH (10:24)
[2018-09-12] MEDS: SELENIUM SULFIDE 2.5% LOTION 4 OZ. TP SCH (10:24)
[2018-09-12] MEDS: BACITRACIN 0.9 GM PACKET TP SCH ×2 (10:24→21:46)
[2018-09-12] MEDS: NICOTINE 21 MG/24 HOURS TOPICAL PATCH TD SCH (10:24)
[2018-09-12] MEDS: PRENATAL VITAMINS W/ FOLIC ACID TABLET (FP) PO SCH (10:24)
[2018-09-12] MEDS: THIAMINE HCL 100 MG TABLET (FP) PO SCH (21:46)
[2018-09-12] MEDS: traZODone HCL 50 MG TABLET (FP) PO SCH (21:47)
[2018-09-13] MEDS: PRENATAL VITAMINS W/ FOLIC ACID TABLET (FP) PO SCH (10:00)
[2018-09-13] MEDS: BACITRACIN 0.9 GM PACKET TP SCH ×2 (10:00→21:30)
[2018-09-13] MEDS: NICOTINE 21 MG/24 HOURS TOPICAL PATCH TD SCH (10:01)
[2018-09-13] MEDS: ALBUTEROL SO4 8 GM HFA INHALER IH PRN ×2 (10:02→23:28)
[2018-09-13] MEDS: SELENIUM SULFIDE 2.5% LOTION 4 OZ. TP SCH (10:02)
[2018-09-13] MEDS: BENZOYL PEROXIDE 5% 60 GM GEL..GRAM. TP SCH (10:29)
[2018-09-13] MEDS: traZODone HCL 50 MG TABLET (FP) PO SCH (21:31)
[2018-09-13] MEDS: THIAMINE HCL 100 MG TABLET (FP) PO SCH (21:31)
--- NOTE | 2018-09-14 08:53 | PN ---
[facility] Progress Note Note: PATIENT PRESENTS WITH C/O JOCK ITCH. PATIENT REPORTS HAVING SYMPTOMS ON AND OFF X MONTHS. PATIENT IS ALERT AND ORIENTED X 3. DENIES RASH, LESIONS OR LUMPS TO OTHER BODY SITES. PATIENT ALSO FOR D/C TOMORROW MORNING. PATIENT SCHEDULED TO ATTEND PENITENTIARY TREATMENT AT [facility]. PATIENT STATES HE ACHIEVED PERSONAL REHAB GOALS DURING ADMISSION HERE AT [facility]. PATIENT DENIES SI/HI AND REMAINS MEDICALLY STABLE. Vital Signs Temperature 97.5 F L 09/13/18 06:43 Pulse Rate 71 09/13/18 06:43 Respiratory Rate 16 09/14/18 03:29 Blood Pressure 126/73 09/13/18 06:43 O2 Sat by Pulse Oximetry (%) PE: ALERT AND ORIENTED X 3 SKIN WARM AND DRY PATIENT REPORTS MILD REDNESS AND ITCHING TO B/L GROIN EXT FULL ROM, AMB AD CHRIS A/P: JOCK ITCH WILL START LOTRISONE CREAM BID CONTINUE TO MONITOR D/C MEDS ALBUTEROL INH AND LOTRISONE CREAM SENT TO [facility] PATIENT LEAVES EARLY TOMORROW MORNING AT 7 AM.
[2018-09-14] MEDS: BACITRACIN 0.9 GM PACKET TP SCH ×2 (10:43→21:36)
[2018-09-14] MEDS: PRENATAL VITAMINS W/ FOLIC ACID TABLET (FP) PO SCH (10:43)
[2018-09-14] MEDS: BENZOYL PEROXIDE 5% 60 GM GEL..GRAM. TP SCH (10:44)
[2018-09-14] MEDS: NICOTINE 21 MG/24 HOURS TOPICAL PATCH TD SCH (10:44)
[2018-09-14] MEDS: SELENIUM SULFIDE 2.5% LOTION 4 OZ. TP SCH (10:44)
[2018-09-14] MEDS ORDERED: PT OWN MED DRAWER 7, Y5N ONE ×2 (10:45→10:49)
[2018-09-14] MEDS: CLOTRIMAZOLE/BETAMET DIPROP TOPICAL CREAM 45 GM TUBE TP SCH ×2 (13:07→22:14)
[2018-09-14] MEDS ORDERED: GABAPENTIN 100 MG CAPSULE (FP) PO SCH (14:00)
[2018-09-14] MEDS: THIAMINE HCL 100 MG TABLET (FP) PO SCH (21:36)
[2018-09-14] MEDS: traZODone HCL 50 MG TABLET (FP) PO SCH (21:36)
--- NOTE | 2018-09-15 06:28 | PN ---
Psychiatric Progress Note Vital Signs: Vital Signs Period Temp Pulse Resp BP Sys/Leggett Pulse Ox Last 24 Hr 18 Date of Session: 09/15/18 Chief Complaint:: Discharge Note HPI: Patient addressing Opioid, Cocaine and Cannabis dependence comorbid with Nicotine dependence, MDD, Substance-Inducedsleep Disorder ROS: Asthma, Hep C were medically managed Current Medications: Active Medications Generic Name Dose Route Start Last Admin Trade Name Freq PRN Reason Stop Dose Admin Acetaminophen 650 mg 08/31/18 15:57 Tylenol - PO Q4H PRN FEVER Al Hydroxide/Mg Hydroxide 30 ml 08/31/18 15:57 Mylanta Oral Suspension - PO Q6H PRN DYSPEPSIA Albuterol Sulfate 2 puff 08/31/18 16:01 09/13/18 23:28 Ventolin Hfa Inhaler - IH 2 puff Q4H PRN Administration ASTHMA Bacitracin 0.9 gm 09/03/18 22:00 09/14/18 21:36 Bacitracin - TP 0.9 gm BID HANNAH Administration Benzoyl Peroxide 1 applic 09/04/18 10:00 09/14/18 10:44 Benzoyl Peroxide 5% Gel - TP Not Given DAILY HANNAH Bupropion HCl 150 mg 09/01/18 13:00 09/14/18 10:43 Wellbutrin Xl - PO 150 mg DAILY HANNAH Administration Clotrimazole 1 applic 09/14/18 10:00 09/14/18 22:14 Lotrisone Cream (Large Tube) - TP 1 appful BID HANNAH Administration Eucalyptus/Menthol/Phenol/Sorbitol 1 each 08/31/18 15:57 Cepastat Lozenge - MM Q4H PRN SORE THROAT Guaifenesin 10 ml 08/31/18 15:57 Robitussin Dm - PO Q6H PRN COUGH Hydroxyzine Pamoate 50 mg 08/31/18 15:57 09/06/18 17:49 Vistaril - PO 50 mg Q4H PRN Administration AGITATION Ibuprofen 400 mg 08/31/18 15:57 09/02/18 12:04 Motrin - PO 400 mg Q6H PRN Administration Pain level 4-6 Loperamide HCl 4 mg 08/31/18 15:57 Imodium - PO Q6H PRN DIARRHEA Magnesium Citrate 300 ml 08/31/18 15:57 Citroma - PO Q48H PRN CONSTIPATION Magnesium Hydroxide 30 ml 08/31/18 15:57 Milk Of Magnesia - PO DAILY PRN CONSTIPATION Melatonin 5 mg 08/31/18 22:00 09/09/18 22:05 Melatonin PO 5 mg HS PRN Administration INSOMNIA Nicotine 21 mg 08/31/18 16:00 09/14/18 10:44 Nicoderm Patch - TD Not Given DAILY HANNAH Multivit/Folic Acid/Iron 1 tab 09/01/18 10:00 09/14/18 10:43 Vitamins (Sjr) - PO 1 tab DAILY HANNAH Administration Pseudoephedrine/Triprolidine 1 combo 08/31/18 15:57 Actifed - PO TID PRN NASAL CONGESTION Selenium Sulfide 1 applic 09/08/18 10:00 09/14/18 10:44 Selsun 2.5% Lotion - TP 09/15/18 09:44 1 applic DAILY HANNAH Administration Thiamine HCl 100 mg 08/31/18 22:00 09/14/18 21:36 Vitamin B1 - PO 100 mg HS HANNAH Administration Trazodone HCl 50 mg 09/01/18 22:00 09/14/18 21:36 Desyrel - PO 50 mg HS HANNAH Administration Current Side Effect: No Lab tests ordered: Yes Lab tests reviewed: Yes Provider note:: Patient has completed this program today. He has met his treatment goals and will continue to address his issues in intermodal customer service residential treatment at [facility] at [address] [place] [address]. Told technical writer that from his participation in this program, he has learned to identify his triggers and better ways to avoid them. He responded well to Wellbutrin XL 150 mg po daily and Trazadone 50 mg po HS. Scripts for these medications are electronically transmitted to [facility] at [address] [place] [phone]. He is stable for discharge today Total face to face time:: 35 Mental Status Exam - Mental Status Exam Alert and Oriented to: Time, Place, Person Cognitive Function: Fair Patient Appearance: Well Groomed Mood: Hopeful, Euthymic Affect: Appropriate Patient Behavior: Cooperative Speech Pattern: Clear Voice Loudness: Normal Thought Process: Intact, Goal Oriented Thought Disorder: Not Present Hallucinations: Denies Suicidal Ideation: Denies Homicidal Ideation: Denies Insight/Judgement: Fair Sleep: Fair Appetite: Good Muscle strength/Tone: Normal Gait/Station: Normal Psychiatric Treatment Plan - Problem List (1) Opioid dependence Current Visit: Yes (2) Cocaine dependence Current Visit: No Qualifiers: Substance use status: uncomplicated Qualified Code(s): F14.20 - Cocaine dependence, uncomplicated (3) Cannabis dependence Current Visit: Yes (4) Nicotine dependence Current Visit: No Qualifiers: Nicotine product type: cigarettes Substance use status: in withdrawal Qualified Code(s): F17.213 - Nicotine dependence, cigarettes, with withdrawal (5) MDD (major depressive disorder) Current Visit: No Qualifiers: Major depression recurrence: single episode Active/Remission status: remission status unspecified Qualified Code(s): F32.9 - Major depressive disorder, single episode, unspecified (6) Substance-induced sleep disorder Current Visit: Yes (7) Asthma Current Visit: Yes (8) Hepatitis C Current Visit: Yes Initial treatment plan: Patient is discharged today and referred to [facility] for alf residential treatment
[2018-09-15 06:45] VITALS: BP 127/79; PULSE 62; TEMP 98.3
== END 2018-09-15 07:40 | disposition home or self-care (01) | DRG 772 ==
LOC: YASAS 13:09 → Y3W 16:06
PROVIDERS: ADMIT Psychiatry & Neurology Psychiatry; ATTEND Psychiatry & Neurology Psychiatry
PROC: HZ42ZZZ Group Counseling for Substance Abuse Treatment, Cognitive-Behavioral (ICD-10-PCS; principal; 2018-08-31)
DX: F11.20 Opioid dependence, uncomplicated (principal); F14.20 Cocaine dependence, uncomplicated; F12.20 Cannabis dependence, uncomplicated; F17.213 Nicotine dependence, cigarettes, with withdrawal; F32.9 Major depressive disorder, single episode, unspecified; F19.282 Other psychoactive substance dependence with psychoactive substance-induced sleep disorder; J45.909 Unspecified asthma, uncomplicated; B18.2 Chronic viral hepatitis C; B35.6 Tinea cruris; L70.9 Acne, unspecified; G47.00 Insomnia, unspecified; L03.113 Cellulitis of right upper limb; R00.1 Bradycardia, unspecified; Z91.010 Allergy to peanuts

== ENCOUNTER 2019-07-06 17:48 | Inpatient (IN) | payer OTHER ==
[2019-07-06 19:44] VITALS: BMI 22.1
--- NOTE | 2019-07-06 20:30 | HP ---
COWS - Scale Resting Pulse: 0= [place] 80 or Below Sweatin=Flushed/Facial Moisture Restless Observation: 1= Difficult to Sit Still Pupil Size: 0= Normal to Room Light Bone or Joint Aches: 4=Acute Joint/Muscle Pain Runny Nose/ Eye Tearin= Runny Nose/Eyes GI Upset > 30mins: 1= Stomach Cramp Tremor Observation: 2= Slight Tremor Visible Yawning Observation: 1= 1-2x During Session Anxiety or Irritability: 4=Extreme Anxiety Goose Flesh Skin: 3=Piloerection COWS Score: 20 CIWA Score - Admission Criteria OASAS Guidelines: Admission for Medically Managed Detox: Requires at least one of the followin. CIWA greater than 12 2. Seizures within the past 24 hours 3. Delirium tremens within the past 24 hours 4. Hallucinations within the past 24 hours 5. Acute intervention needed for co occurring medical disorder 6. Acute intervention needed for co occurring psychiatric disorder 7. Severe withdrawal that cannot be handled at a lower level of care (continued vomiting, continued diarrhea, abnormal vital signs) requiring intravenous medication and/or fluids 8. Admitting History and Physical - Smoking History Smoking history: Current every day smoker Have you smoked in the past 12 months: Yes Aproximately how many cigarettes per day: 6 - Alcohol/Substance Use Hx Alcohol Use: No Admission ROS [facility] Chief Complaint: Heroin withdrawal symptoms Allergies/Adverse Reactions: Allergies Allergy/AdvReac Type Severity Reaction Status Date / Time peanut Allergy Severe Difficulty Verified 07/06/19 19:19 Breathing No Known Drug Allergies Allergy Verified 07/06/19 19:19 nut - unspecified [nut] Allergy Difficulty Verified 07/06/19 19:19 Breathing History of Present Illness: 34 years old male with 12 years of heroin dependence is seeking admission to detox. Patient reports that he was in detox/ Rehab.for the period 08/24/2018 - 09/15/2018 at [facility]. He lives in a chcf and had relapsed. He has history of Asthma, Jock Itch, Hep. C (treated), Depression and Anxiety. He denies suicide attempt / suicidal ideation at this time. Confidential Drug Utilization Report Search Terms: lewis tamikothien, 1985 Search Date: 07/06/2019 08:28:18 PM The Drug Utilization Report below displays all of the controlled substance prescriptions, if any, that your patient has filled in the last twelve months. The information displayed on this report is compiled from pharmacy submissions to the Department, and accurately reflects the information as submitted by the pharmacies. There are no results for the search terms that you entered. Exam Limitations: No Limitations - Ebola screening Have you traveled outside of the country in the last 21 days: No (N) Have you had contact with anyone from an Ebola affected area: No Do you have a fever: No - Review of Systems Constitutional: Chills, Night Sweats, Changes in sleep EENT: reports: Sinus Pressure Respiratory: reports: No Symptoms reported Cardiac: reports: No Symptoms Reported GI: reports: Poor Appetite, Poor Fluid Intake, Abdominal cramping : reports: No Symptoms Reported Musculoskeletal: reports: Back Pain Integumentary: reports: Dryness, Flushing Neuro: reports: Tremors Endocrine: reports: No Symptoms Reported Hematology: reports: No Symptoms Reported Psychiatric: reports: Mood/Affect Appropiate, Orientated x3, Anxious, Depressed Other Systems: Reviewed and Negative Patient History - Patient Medical History Hx Anemia: No Hx Asthma: Yes (Albuterol) Hx Chronic Obstructive Pulmonary Disease (COPD): No Hx Cancer: No Hx Cardiac Disorders: No Hx Congestive Heart Failure: No Hx Hypertension: No Hx Hypercholesterolemia: No Hx Pacemaker: No HX Cerebrovascular Accident: No Hx Seizures: No Hx Diabetes: No Hx Gastrointestinal Disorders: No Hx Liver Disease: No Hx Genitourinary Disorders: No Hx Sexually Transmitted Disorders: No Hx Renal Disease (ESRD): No Hx Thyroid Disease: No Hx Human Immunodeficiency Virus (HIV): No (Negative MAY 2019) Hx Hepatitis C: No Hx Depression: Yes (NOT on MEDICATION) Hx Suicide Attempt: No (DENIES IDEATION AT THIS TIME) Hx Bipolar Disorder: No Hx Schizophrenia: No Other Medical History: ANXIETY -NOT on MEDICATION - Patient Surgical History Past Surgical History: No Hx Neurologic Surgery: No Hx Cataract Extraction: No Hx Cardiac Surgery: No Hx Lung Surgery: No Hx Abdominal Surgery: No Hx Appendectomy: No Hx Cholecystectomy: No Hx Genitourinary Surgery: No Hx Orthopedic Surgery: No Anesthesia Reaction: No - PPD History Previous Implant?: Yes Documented Results: Negative w/proof Implanted On Prior R Admission?: Yes Date: 08/26/18 Results: NEGATIVE PPD to be Administered?: No - Reproductive History Patient is a Female of Child Bearing Age (11 -55 yrs old): No (male) - Smoking Cessation Smoking history: Current every day smoker Have you smoked in the past 12 months: Yes Aproximately how many cigarettes per day: 6 Cigars Per Day: 0 Hx Chewing Tobacco Use: No Initiated information on smoking cessation: Yes 'Breaking Loose' booklet given: 07/06/19 - Substance & Tx. History Hx Alcohol Use: No Hx Substance Use: Yes Substance Use Type: Cocaine, Heroin, Marijuana, Opiates Hx Substance Use Treatment: Yes ([facility]) - Substances abused Heroin Other (specify): SNIFF Frequency: Daily Amount used: 7 BAGS Age of first use: 29 Date of last use: 07/06/19 Cocaine Substance route: Smoking Frequency: Daily Amount used: $40 Age of first use: 27 Date of last use: 07/05/19 Admission Physical Exam [facility] - Vital Signs Vital Signs: Vital Signs - 24 hr 07/06/19 07/06/19 19:38 19:52 Temperature 97.6 F 97.6 F Pulse Rate 79 79 Respiratory 18 18 Rate Blood Pressure 110/68 110/68 - Physical General Appearance: Yes: Moderate Distress, Tremorous, Sweating, Anxious HEENTM: Yes: Within Normal Limits Respiratory: Yes: Lungs Clear, Normal Breath Sounds, No Respiratory Distress Neck: Yes: Supple Breast: Yes: Breast Exam Deferred Cardiology: Yes: Regular Rhythm, Regular Rate Abdominal: Yes: Normal Bowel Sounds, Soft Genitourinary: Yes: Within Normal Limits Back: Yes: Normal Inspection Musculoskeletal: Yes: Back pain Extremities: Yes: Tremors Neurological: Yes: Alert, Normal Mood/Affect Integumentary: Yes: Warm, Track Choe (both hands) Lymphatic: Yes: Within Normal Limits - Diagnostic (1) Cocaine dependence Current Visit: Yes Status: Chronic Qualifiers: Substance use status: uncomplicated Qualified Code(s): F14.20 - Cocaine dependence, uncomplicated (2) Depression Current Visit: Yes Status: Chronic Qualifiers: Depression Type: unspecified Qualified Code(s): F32.9 - Major depressive disorder, single episode, unspecified (3) Jock itch Current Visit: Yes Status: Chronic (4) Marijuana dependence Current Visit: Yes Status: Chronic (5) Opioid dependence with withdrawal Current Visit: No Status: Acute (6) Asthma Current Visit: Yes Status: Chronic Qualifiers: Asthma severity: mild Asthma persistence: intermittent (7) Nicotine dependence Current Visit: Yes Status: Chronic Qualifiers: Nicotine product type: cigarettes Substance use status: uncomplicated Qualified Code(s): F17.210 - Nicotine dependence, cigarettes, uncomplicated (8) Hepatitis C Current Visit: No Status: Resolved Cleared for Admission S - Detox or Rehab [facility] Level of Care: Medically Managed Detox Regimen/Protocol: Methadone Breathalyzer - Breathalyzer Breathalyzer: 0 Urine Drug Screen - Test Device Lot number: [id number] Expiration date: 03/24/21 - Control Is test valid?: Yes - Results Drug screen NEGATIVE: No Urine drug screen results: THC-Marijuana, HARDEEP-Cocaine, FEN-Fentanyl, MOP-Opiates Inpatient Rehab Admission - Rehab Decision to Admit Inpatient rehab admission?: No
[2019-07-06] MEDS ORDERED: MAGNESIUM CITRATE 300 ML BOTTLE PO PRN (20:54)
[2019-07-06] MEDS ORDERED: MAGNESIUM HYDROX 2400MG/30ML ORAL SUSPENSION 30 ML CUP PO PRN (20:54)
[2019-07-06] MEDS ORDERED: METHADONE HCL 10 MG TABLET (FOR DETOX USE ONLY) PO ONE (20:54)
[2019-07-06] MEDS ORDERED: MAG HYDROX/AL HYDROX/SIMETH 30 ML UNIT-DOSE CUP PO PRN (20:54)
[2019-07-06] MEDS ORDERED: NICOTINE POLACRILEX 2 MG GUM BUC PRN (20:54)
[2019-07-06] MEDS ORDERED: IBUPROFEN 400 MG TABLET (FP) PO PRN (20:54)
[2019-07-06] MEDS ORDERED: cloNIDine HCL 0.1 MG TABLET PO PRN (20:54)
[2019-07-06] MEDS ORDERED: ACETAMINOPHEN 325 MG TABLET (FP) PO PRN ×2 (20:54)
[2019-07-06] MEDS ORDERED: BISMUTH SUBSALICYLATE 524 MG/30 ML UD PO PRN (20:54)
[2019-07-06] MEDS: THIAMINE HCL 100 MG TABLET (FP) PO SCH (22:21)
[2019-07-06] MEDS: MELATONIN 5 MG TABLETS PO PRN (22:22)
[2019-07-07] MEDS: MENTHOL/PHENOL 1 EACH UD MM PRN ×2 (03:58→09:54)
[2019-07-07] MEDS: hydrOXYzine PAMOATE 25 MG CAPSULE (FP) PO PRN ×2 (05:39→17:22)
[2019-07-07] MEDS: METHOCARBAMOL 500 MG TABLET PO PRN ×2 (05:39→22:34)
[2019-07-07] MEDS ORDERED: METHADONE HCL 5 MG TABLET (FOR DETOX USE ONLY) ONE (09:27)
[2019-07-07] MEDS ORDERED: METHADONE HCL 10 MG TABLET (FOR DETOX USE ONLY) ONE (09:27)
--- NOTE | 2019-07-07 09:31 | EKG ---
Test Reason : Blood Pressure : / mmHG Vent. Rate : 062 BPM Atrial Rate : 062 BPM P-R Int : 162 ms QRS Dur : 088 ms QT Int : 404 ms P-R-T Axes : 079 -08 050 degrees QTc Int : 410 ms NORMAL SINUS RHYTHM NORMAL ECG WHEN COMPARED WITH ECG OF 05-SEP-2016 15:20, NO SIGNIFICANT CHANGE WAS FOUND Confirmed by PEMA FOSTER MD ([id number]) on 07/07/2019 9:30:59 AM Referred By: Confirmed By:PEMA FOSTER MD
[2019-07-07 09:47] LABS: HEMATOCRIT 42.2 % (35.4-49); HEMOGLOBIN 13.8 GM/dL (11.7-16.9); MCH 25.7 pg (25.7-33.7); MCHC 32.7 g/dl (32.0-35.9); MEAN CELL VOLUME 78.5 fl (80-96); MEAN PLT VOLUME 9.4 fl (7.5-11.1); PLATELET COUNT 282 K/MM3 (134-434); RBC 5.38 M/mm3 (4.00-5.60); RDW 15.4 % (11.9-15.9); WHITE BLOOD COUNT 11.1 K/mm3 (4.0-10.0)
[2019-07-07] MEDS: PRENATAL VITAMINS W/ FOLIC ACID TABLET (FP) PO SCH (09:53)
[2019-07-07] MEDS: NICOTINE 14 MG/24 HOURS TOPICAL PATCH TD SCH (09:54)
[2019-07-07] MEDS ORDERED: METHADONE (DETOX) 20 MG, METHADONE (DETOX) 5 MG PO ONE (10:00)
[2019-07-07 10:21] LABS: ALBUMIN 4.4 g/dl (3.4-5.0); BILIRUBIN,TOTAL 0.4 mg/dL (0.2-1); BLOOD UREA NITROGEN 11.8 mg/dL (7-18); CALCIUM 9.5 mg/dL (8.5-10.1); CREATININE 1.3 mg/dL (0.55-1.3); TOT PROT 7.6 g/dl (6.4-8.2)
--- NOTE | 2019-07-07 10:49 | PN ---
BHS COWS - Scale Resting Pulse: 0= [place] 80 or Below Sweatin= Chills/Flushing Restless Observation: 0= Sits Still Pupil Size: 1= Pupils >than Normal Bone or Joint Aches: 2= Severe Diffuse Aches Runny Nose/ Eye Tearin= Nasal Congestion GI Upset > 30mins: 2= Nausea/Diarrhea Tremor Observation of Outstretched Hands: 2= Slight Tremor Visible Yawning Observation: 1= 1-2x During Session Anxiety or Irritability: 2=Irritable/Anxious Goose Flesh Skin: 3=Piloerection COWS Score: 15 BHS Progress Note (SOAP) Subjective: 34 years old male admitted on 07/06/19 for opiate withdrawal sx management treated with methadone detox regimen ate breakfast feeling tired sweating resting on bed limited conversation with staff Objective: 07/07/19 10:47 Vital Signs Temperature 97.2 F L 07/07/19 09:18 Pulse Rate 58 L 07/07/19 09:18 Respiratory Rate 18 07/07/19 09:18 Blood Pressure 112/68 07/07/19 09:18 O2 Sat by Pulse Oximetry (%) Laboratory Last Values WBC 11.1 K/mm3 (4.0-10.0) H 07/07/19 07:10 RBC 5.38 M/mm3 (4.00-5.60) 07/07/19 07:10 Hgb 13.8 GM/dL (11.7-16.9) 07/07/19 07:10 Hct 42.2 % (35.4-49) 07/07/19 07:10 MCV 78.5 fl (80-96) L 07/07/19 07:10 MCH 25.7 pg (25.7-33.7) 07/07/19 07:10 MCHC 32.7 g/dl (32.0-35.9) 07/07/19 07:10 RDW 15.4 % (11.9-15.9) 07/07/19 07:10 Plt Count 282 K/MM3 (134-434) D 07/07/19 07:10 MPV 9.4 fl (7.5-11.1) 07/07/19 07:10 Sodium 137 mmol/L (136-145) 07/07/19 07:10 Potassium 4.0 mmol/L (3.5-5.1) 07/07/19 07:10 Chloride 104 mmol/L (98-107) 07/07/19 07:10 Carbon Dioxide 26 mmol/L (21-32) 07/07/19 07:10 Anion Gap 8 MMOL/L (8-16) 07/07/19 07:10 BUN 11.8 mg/dL (7-18) 07/07/19 07:10 Creatinine 1.3 mg/dL (0.55-1.3) 07/07/19 07:10 Est GFR (CKD-EPI)AfAm 83.68 07/07/19 07:10 Est GFR (CKD-EPI)NonAf 72.20 07/07/19 07:10 Random Glucose 72 mg/dL (74-106) L 07/07/19 07:10 Calcium 9.5 mg/dL (8.5-10.1) 07/07/19 07:10 Total Bilirubin 0.4 mg/dL (0.2-1) 07/07/19 07:10 AST 14 U/L (15-37) L 07/07/19 07:10 ALT 23 U/L (13-61) 07/07/19 07:10 Alkaline Phosphatase 89 U/L (45-117) 07/07/19 07:10 Total Protein 7.6 g/dl (6.4-8.2) 07/07/19 07:10 Albumin 4.4 g/dl (3.4-5.0) 07/07/19 07:10 lab noted Assessment: 07/07/19 10:48 opiate withdrawal sx Plan: continue methadone detox regimen
--- NOTE | 2019-07-07 16:12 | CONSULT ---
[facility] Psychiatric Consult - Data Date of interview: 07/07/19 Admission source: [facility] Identifying data: Readmission to [facility] for this 34 y/o AA male self- referred for detoxification (SHAILA issues : alcohol, cocaine/crack, heroin, benzodiazepine (xanax), marijuana). Patient is single without children, homeless , unemployed and supported on food stamps. Substance Abuse History: Discussed with patient. Details concordant with the following segment of [facility] report on admission : Smoking history: Current every day smoker. Have you smoked in the past 12 months: Yes. Aproximately how many cigarettes per day: 6. Cigars Per Day: 0. Hx Chewing Tobacco Use: No. Initiated information on smoking cessation: Yes. 'Breaking Loose' booklet given : 07/06/19. - Substance & Tx. History. Hx Alcohol Use: No. Hx Substance Use: Yes. Substance Use Type: Cocaine, Heroin, Marijuana, Opiates. Hx Substance Use Treatment: Yes ([facility]). - Substances abused. Heroin. Other (specify): SNIFF. Frequency: Daily. Amount used: 7 BAGS. Age of first use: 29. Date of last use: 07/06/19. Cocaine. Substance route: Smoking. Frequency: Daily. Amount used: $40. Age of first use: 27. Date of last use: 07/05/19 Medical History: Significant for bronchial asthma. Psychiatric History: Patient denies history of psychiatric hospitalizations. Has been lost to follow up for several months. Mr Berman reports that he has voluntarily abstained from psychotropic medications since 2011. Patient reportedly saw a psychiatrist for the fist time at age 17 (got diagnosed with MDD and treated with psychotherapy). Pharmacotherapy was initiated in 1999 and lasted until 2011 (patient was followed at [facility]). Last took trazodone 50 mg/hs + wellbutrin XL 150 mg/day two months ago. Patient wishes to resume these medications in this hospital course. He denies history of suicide attempts. Physical/Sexual Abuse/Trauma History: Denies. Additional Comment: Urine drug screen results: THC-Marijuana, HARDEEP-Cocaine, FEN- Fentanyl, MOP-Opiates. Noted. Mental Status Exam - Mental Status Exam Alert and Oriented to: Time, Place, Person Cognitive Function: Good Patient Appearance: Well Groomed Mood: Withdrawn, Hopeful Affect: Appropriate, Normal Range Patient Behavior: Fatigued, Appropriate, Cooperative Speech Pattern: Clear Voice Loudness: Normal Thought Process: Intact, Goal Oriented Thought Disorder: Not Present Hallucinations: Denies Suicidal Ideation: Denies Insight/Judgement: Poor Sleep: Poorly, Difficulty falling asleep Appetite: Good Muscle strength/Tone: Normal Gait/Station: Normal Psychiatric Findings - Problem List ([place] 1, 2,3) (1) Opioid dependence with withdrawal Current Visit: Yes Status: Acute (2) Cocaine dependence Current Visit: Yes Status: Chronic Qualifiers: Substance use status: uncomplicated Qualified Code(s): F14.20 - Cocaine dependence, uncomplicated (3) Marijuana dependence Current Visit: Yes Status: Chronic (4) Nicotine dependence Current Visit: Yes Status: Chronic Qualifiers: Nicotine product type: cigarettes Substance use status: uncomplicated Qualified Code(s): F17.210 - Nicotine dependence, cigarettes, uncomplicated (5) MDD (major depressive disorder) Current Visit: Yes Status: Chronic Qualifiers: Major depression recurrence: single episode Active/Remission status: remission status unspecified Qualified Code(s): F32.9 - Major depressive disorder, single episode, unspecified (6) Insomnia Current Visit: Yes Status: Chronic (7) Non-compliance Current Visit: Yes Status: Chronic - Initial Treatment Plan Initial Treatment Plan: Psychoeducation. Sleep hygiene. Detoxification. NA meetings. MAT services : discussed with the patient. Medications : wellbutrin XL 150 mg po daily + trazodone 50 mg po hs are ordered at patient's request. Side effects/benefits of both drugs are discussed with the patient. Made aware of risk of seizures and priapism (respectively). Mr Berman gave verbal consent to MD. Mccray.
[2019-07-07] MEDS: MELATONIN 5 MG TABLETS PO PRN (22:33)
[2019-07-07] MEDS: traZODone HCL 50 MG TABLET (FP) PO SCH (22:33)
[2019-07-07] MEDS: THIAMINE HCL 100 MG TABLET (FP) PO SCH (22:33)
[2019-07-07] MEDS: ALBUTEROL SO4 8 GM HFA INHALER IH PRN (23:03)
[2019-07-08] MEDS: METHOCARBAMOL 500 MG TABLET PO PRN ×2 (06:28→17:45)
[2019-07-08] MEDS: NICOTINE 14 MG/24 HOURS TOPICAL PATCH TD SCH (09:40)
[2019-07-08] MEDS: PRENATAL VITAMINS W/ FOLIC ACID TABLET (FP) PO SCH (09:40)
[2019-07-08] MEDS: ALBUTEROL SO4 8 GM HFA INHALER IH PRN ×3 (09:41→22:12)
[2019-07-08] MEDS ORDERED: METHADONE HCL 10 MG TABLET (FOR DETOX USE ONLY) PO ONE (10:00)
--- NOTE | 2019-07-08 14:51 | PN ---
S COWS - Scale Resting Pulse: 0= [place] 80 or Below Sweatin= Chills/Flushing Restless Observation: 0= Sits Still Pupil Size: 0= Normal to Room Light Bone or Joint Aches: 2= Severe Diffuse Aches Runny Nose/ Eye Tearin= Nasal Congestion GI Upset > 30mins: 2= Nausea/Diarrhea Tremor Observation of Outstretched Hands: 2= Slight Tremor Visible Yawning Observation: 1= 1-2x During Session Anxiety or Irritability: 2=Irritable/Anxious Goose Flesh Skin: 3=Piloerection COWS Score: 14 S Progress Note (SOAP) Subjective: 34 years old male admitted on 07/06/19 for opiate withdrawal sx management treated with methadone detox regimen trouble sleep at night anxious tremor sweating Objective: 07/08/19 14:50 Vital Signs Temperature 96.0 F L 07/08/19 13:12 Pulse Rate 53 L 07/08/19 13:12 Respiratory Rate 16 07/08/19 13:12 Blood Pressure 119/67 07/08/19 13:12 O2 Sat by Pulse Oximetry (%) Laboratory Last Values WBC 11.1 K/mm3 (4.0-10.0) H 07/07/19 07:10 RBC 5.38 M/mm3 (4.00-5.60) 07/07/19 07:10 Hgb 13.8 GM/dL (11.7-16.9) 07/07/19 07:10 Hct 42.2 % (35.4-49) 07/07/19 07:10 MCV 78.5 fl (80-96) L 07/07/19 07:10 MCH 25.7 pg (25.7-33.7) 07/07/19 07:10 MCHC 32.7 g/dl (32.0-35.9) 07/07/19 07:10 RDW 15.4 % (11.9-15.9) 07/07/19 07:10 Plt Count 282 K/MM3 (134-434) D 07/07/19 07:10 MPV 9.4 fl (7.5-11.1) 07/07/19 07:10 Sodium 137 mmol/L (136-145) 07/07/19 07:10 Potassium 4.0 mmol/L (3.5-5.1) 07/07/19 07:10 Chloride 104 mmol/L (98-107) 07/07/19 07:10 Carbon Dioxide 26 mmol/L (21-32) 07/07/19 07:10 Anion Gap 8 MMOL/L (8-16) 07/07/19 07:10 BUN 11.8 mg/dL (7-18) 07/07/19 07:10 Creatinine 1.3 mg/dL (0.55-1.3) 07/07/19 07:10 Est GFR (CKD-EPI)AfAm 83.68 07/07/19 07:10 Est GFR (CKD-EPI)NonAf 72.20 07/07/19 07:10 Random Glucose 72 mg/dL (74-106) L 07/07/19 07:10 Calcium 9.5 mg/dL (8.5-10.1) 07/07/19 07:10 Total Bilirubin 0.4 mg/dL (0.2-1) 07/07/19 07:10 AST 14 U/L (15-37) L 07/07/19 07:10 ALT 23 U/L (13-61) 07/07/19 07:10 Alkaline Phosphatase 89 U/L (45-117) 07/07/19 07:10 Total Protein 7.6 g/dl (6.4-8.2) 07/07/19 07:10 Albumin 4.4 g/dl (3.4-5.0) 07/07/19 07:10 RPR Titer Nonreactive (NONREACTIVE) 07/07/19 07:10 lab noted Assessment: 07/08/19 14:50 opiate withdrawal sx Plan: continue methadone detox regimen
[2019-07-08] MEDS: hydrOXYzine PAMOATE 25 MG CAPSULE (FP) PO PRN (17:45)
[2019-07-08] MEDS: traZODone HCL 50 MG TABLET (FP) PO SCH (22:11)
[2019-07-08] MEDS: MELATONIN 5 MG TABLETS PO PRN (22:11)
[2019-07-08] MEDS: THIAMINE HCL 100 MG TABLET (FP) PO SCH (22:11)
[2019-07-09] MEDS: ALBUTEROL SO4 8 GM HFA INHALER IH PRN ×4 (03:59→17:55)
[2019-07-09] MEDS ORDERED: METHADONE HCL 10 MG TABLET (FOR DETOX USE ONLY) ONE (09:28)
[2019-07-09] MEDS ORDERED: METHADONE HCL 5 MG TABLET (FOR DETOX USE ONLY) ONE (09:29)
[2019-07-09] MEDS: PRENATAL VITAMINS W/ FOLIC ACID TABLET (FP) PO SCH (09:59)
[2019-07-09] MEDS ORDERED: METHADONE (DETOX) 10 MG, METHADONE (DETOX) 5 MG PO ONE (10:00)
[2019-07-09] MEDS: METHOCARBAMOL 500 MG TABLET PO PRN ×2 (10:02→17:54)
[2019-07-09] MEDS: NICOTINE 14 MG/24 HOURS TOPICAL PATCH TD SCH (10:02)
--- NOTE | 2019-07-09 11:50 | PN ---
BHS COWS - Scale Resting Pulse: 0= [place] 80 or Below Sweatin= No chills or Flushing Restless Observation: 1= Difficult to Sit Still Pupil Size: 1= Pupils >than Normal Bone or Joint Aches: 1= Mild Discomfort Runny Nose/ Eye Tearin= Nasal Congestion GI Upset > 30mins: 2= Nausea/Diarrhea Tremor Observation of Outstretched Hands: 1= Tremor [place], Not Seen Yawning Observation: 1= 1-2x During Session Anxiety or Irritability: 2=Irritable/Anxious Goose Flesh Skin: 0=Smooth Skin COWS Score: 10 BHS Progress Note (SOAP) Subjective: alert,irritable,anxious,interrupted sleep,pain in the body and back Objective: 07/09/19 11:49 Vital Signs Temperature 97.7 F 07/09/19 09:10 Pulse Rate 76 07/09/19 09:10 Respiratory Rate 18 07/09/19 09:10 Blood Pressure 124/68 07/09/19 09:10 O2 Sat by Pulse Oximetry (%) Assessment: 07/09/19 11:49 withdrawal symptom Plan: continue detox methadone regimen
[2019-07-09] MEDS: hydrOXYzine PAMOATE 25 MG CAPSULE (FP) PO PRN (17:54)
[2019-07-09] MEDS: THIAMINE HCL 100 MG TABLET (FP) PO SCH (22:14)
[2019-07-09] MEDS: MELATONIN 5 MG TABLETS PO PRN (22:14)
[2019-07-09] MEDS: traZODone HCL 50 MG TABLET (FP) PO SCH (22:14)
[2019-07-10] MEDS: ALBUTEROL SO4 8 GM HFA INHALER IH PRN ×3 (05:21→14:13)
[2019-07-10] MEDS: METHOCARBAMOL 500 MG TABLET PO PRN ×2 (05:21→17:24)
[2019-07-10] MEDS: hydrOXYzine PAMOATE 25 MG CAPSULE (FP) PO PRN ×2 (05:21→17:24)
[2019-07-10] MEDS ORDERED: METHADONE HCL 10 MG TABLET (FOR DETOX USE ONLY) PO ONE (10:00)
[2019-07-10] MEDS: PRENATAL VITAMINS W/ FOLIC ACID TABLET (FP) PO SCH (10:07)
[2019-07-10] MEDS: NICOTINE 14 MG/24 HOURS TOPICAL PATCH TD SCH (10:07)
--- NOTE | 2019-07-10 10:26 | PN ---
BHS COWS - Scale Resting Pulse: 0= [place] 80 or Below Sweatin= Chills/Flushing Restless Observation: 1= Difficult to Sit Still Pupil Size: 0= Normal to Room Light Bone or Joint Aches: 0= None Runny Nose/ Eye Tearin= None GI Upset > 30mins: 0= None Tremor Observation of Outstretched Hands: 0= None Yawning Observation: 0= None Anxiety or Irritability: 2=Irritable/Anxious Goose Flesh Skin: 0=Smooth Skin COWS Score: 4 BHS Progress Note (SOAP) Subjective: c/o irritability, anxiety, and mild sweats. Objective: 07/10/19 10:25 Vital Signs 07/10/19 07/10/19 07/10/19 03:30 06:31 09:10 Temperature 96.6 F L 97.6 F Pulse Rate 68 75 Respiratory 18 18 18 Rate Blood Pressure 113/58 L 101/61 Assessment: 07/10/19 10:25 AOX3, in no acute respiratory distress. Full ROM, ambulating in the unit. Mild withdrawal symptoms. For d/c tomorrow. Plan: continue detox. D/C in AM.
[2019-07-10] MEDS: MELATONIN 5 MG TABLETS PO PRN (22:31)
[2019-07-10] MEDS: THIAMINE HCL 100 MG TABLET (FP) PO SCH (22:31)
[2019-07-10] MEDS: traZODone HCL 50 MG TABLET (FP) PO SCH (22:31)
[2019-07-11] MEDS: hydrOXYzine PAMOATE 25 MG CAPSULE (FP) PO PRN (05:53)
[2019-07-11] MEDS: METHOCARBAMOL 500 MG TABLET PO PRN (05:53)
[2019-07-11] MEDS ORDERED: METHADONE HCL 5 MG TABLET (FOR DETOX USE ONLY) PO ONE (06:00)
[2019-07-11 06:33] VITALS: BP 98/60; PULSE 65; TEMP 97.5
--- NOTE | 2019-07-11 11:23 | DS ---
[facility] Detox Discharge Summary Admission Date: 07/06/19 Discharge Date: 07/11/19 - History Present History: Opioid Dependence Additional Comments: 34 years old male admitted on 07/06/19 for opiate withdrawal sx management treated with methadone detox regimen patient left the unit early today the principal technical writer has not assessed nor evaluated the patient before the patient leave the unit - Physical Exam Results Vital Signs: Vital Signs Temperature 97.5 F L 07/11/19 06:33 Pulse Rate 65 07/11/19 06:33 Respiratory Rate 18 07/11/19 06:33 Blood Pressure 98/60 07/11/19 06:33 O2 Sat by Pulse Oximetry (%) Pertinent Admission Physical Exam Findings: opiate withdrawal sx Laboratory Last Values WBC 11.1 K/mm3 (4.0-10.0) H 07/07/19 07:10 RBC 5.38 M/mm3 (4.00-5.60) 07/07/19 07:10 Hgb 13.8 GM/dL (11.7-16.9) 07/07/19 07:10 Hct 42.2 % (35.4-49) 07/07/19 07:10 MCV 78.5 fl (80-96) L 07/07/19 07:10 MCH 25.7 pg (25.7-33.7) 07/07/19 07:10 MCHC 32.7 g/dl (32.0-35.9) 07/07/19 07:10 RDW 15.4 % (11.9-15.9) 07/07/19 07:10 Plt Count 282 K/MM3 (134-434) D 07/07/19 07:10 MPV 9.4 fl (7.5-11.1) 07/07/19 07:10 Sodium 137 mmol/L (136-145) 07/07/19 07:10 Potassium 4.0 mmol/L (3.5-5.1) 07/07/19 07:10 Chloride 104 mmol/L (98-107) 07/07/19 07:10 Carbon Dioxide 26 mmol/L (21-32) 07/07/19 07:10 Anion Gap 8 MMOL/L (8-16) 07/07/19 07:10 BUN 11.8 mg/dL (7-18) 07/07/19 07:10 Creatinine 1.3 mg/dL (0.55-1.3) 07/07/19 07:10 Est GFR (CKD-EPI)AfAm 83.68 07/07/19 07:10 Est GFR (CKD-EPI)NonAf 72.20 07/07/19 07:10 Random Glucose 72 mg/dL (74-106) L 07/07/19 07:10 Calcium 9.5 mg/dL (8.5-10.1) 07/07/19 07:10 Total Bilirubin 0.4 mg/dL (0.2-1) 07/07/19 07:10 AST 14 U/L (15-37) L 07/07/19 07:10 ALT 23 U/L (13-61) 07/07/19 07:10 Alkaline Phosphatase 89 U/L (45-117) 07/07/19 07:10 Total Protein 7.6 g/dl (6.4-8.2) 07/07/19 07:10 Albumin 4.4 g/dl (3.4-5.0) 07/07/19 07:10 RPR Titer Nonreactive (NONREACTIVE) 07/07/19 07:10 lab noted - Treatment Hospital Course: Detox Protocol Followed, Detoxed Safely, Responded well, Discharged Condition Good (based on staff description), Rehab Referral Accepted Patient has Accepted a Rehab Referral to: [facility] - Medication Discharge Medications: Ambulatory Orders Albuterol Sulfate Inhaler - [Ventolin HFA Inhaler -] 2 inh PO Q4H PRN #1 inhaler 09/14/18 Bupropion HCl [Wellbutrin Xl -] 150 mg PO DAILY #30 tab.sr.24h 09/15/18 traZODone HCL [Desyrel -] 50 mg PO HS #30 tablet 09/15/18 Naloxone HCl [Narcan] 4 mg NS ASDIR PRN #1 spray 07/07/19 - Diagnosis (1) Opioid dependence with withdrawal Status: Acute (2) Asthma Status: Chronic Qualifiers: Asthma severity: mild Asthma persistence: intermittent Asthma complication type: unspecified Qualified Code(s): J45.20 - Mild intermittent asthma, uncomplicated (3) Nicotine dependence Status: Acute Qualifiers: Nicotine product type: cigarettes Substance use status: in withdrawal Qualified Code(s): F17.213 - Nicotine dependence, cigarettes, with withdrawal (4) Hepatitis C Status: Resolved Qualifiers: Viral hepatitis chronicity: carrier Qualified Code(s): B18.2 - Chronic viral hepatitis C - AMA Did Patient Leave Against Medical Advice: No COWS (PN) - Opiate Withdrawal Resting Pulse: 0= [place] 80 or Below Sweatin= Chills/Flushing Restless Observation: 0= Sits Still Pupil Size: 0= Normal to Room Light Bone or Joint Aches: 1= Mild Discomfort Runny Nose/ Eye Tearin= None GI Upset > 30mins: 0= None Tremor Observation of Outstretched Hands: 0= None Yawning Observation: 0= None Anxiety or Irritability: 0= None Goose Flesh Skin: 0=Smooth Skin COWS Score: 2
[2019-07-11] MEDS ORDERED: ALBUTEROL SO4 8 GM HFA INHALER IH PRN (11:34)
[2019-07-11] MEDS ORDERED: NICOTINE POLACRILEX 2 MG GUM BUC PRN (11:35)
[2019-07-12] MEDS ORDERED: NICOTINE 14 MG/24 HOURS TOPICAL PATCH TD SCH (10:00)
== END 2019-07-11 07:53 | disposition home or self-care (01) | DRG 773 ==
LOC: YASAS 17:48 → Y3N 21:40
PROVIDERS: ADMIT Allergy & Immunology; ATTEND Allergy & Immunology
PROC: HZ2ZZZZ Detoxification Services for Substance Abuse Treatment (ICD-10-PCS; principal; 2019-07-06)
DX: F11.23 Opioid dependence with withdrawal (principal); F14.20 Cocaine dependence, uncomplicated; F12.20 Cannabis dependence, uncomplicated; F17.213 Nicotine dependence, cigarettes, with withdrawal; F32.9 Major depressive disorder, single episode, unspecified; J45.20 Mild intermittent asthma, uncomplicated; B18.2 Chronic viral hepatitis C; B35.6 Tinea cruris; G47.00 Insomnia, unspecified; Z91.19 Patient's noncompliance with other medical treatment and regimen; Z91.010 Allergy to peanuts
CPT/HCPCS: 36415; 80053; 85027; 86593; 93005; 93010

== ENCOUNTER 2019-08-16 18:33 | Inpatient (IN) | payer OTHER ==
[2019-08-16 18:49] VITALS: BMI 27.0
--- NOTE | 2019-08-16 21:51 | HP ---
COWS - Scale Resting Pulse: 1= [place] 81-100 Sweatin= Chills/Flushing Restless Observation: 0= Sits Still Pupil Size: 0= Normal to Room Light Bone or Joint Aches: 4=Acute Joint/Muscle Pain Runny Nose/ Eye Tearin= Nasal Congestion GI Upset > 30mins: 2= Nausea/Diarrhea Tremor Observation: 2= Slight Tremor Visible Yawning Observation: 1= 1-2x During Session Anxiety or Irritability: 0= None Goose Flesh Skin: 0=Smooth Skin COWS Score: 12 CIWA Score - Admission Criteria OASAS Guidelines: Admission for Medically Managed Detox: Requires at least one of the followin. CIWA greater than 12 2. Seizures within the past 24 hours 3. Delirium tremens within the past 24 hours 4. Hallucinations within the past 24 hours 5. Acute intervention needed for co occurring medical disorder 6. Acute intervention needed for co occurring psychiatric disorder 7. Severe withdrawal that cannot be handled at a lower level of care (continued vomiting, continued diarrhea, abnormal vital signs) requiring intravenous medication and/or fluids 8. Admitting History and Physical - Smoking History Smoking history: Current every day smoker Have you smoked in the past 12 months: Yes Aproximately how many cigarettes per day: 6 - Alcohol/Substance Use Hx Alcohol Use: No Admission ROS [facility] - [facility] Chief Complaint: seeking herion detox Allergies/Adverse Reactions: Allergies Allergy/AdvReac Type Severity Reaction Status Date / Time peanut Allergy Severe Difficulty Verified 08/16/19 18:43 Breathing No Known Drug Allergies Allergy Verified 08/16/19 18:43 nut - unspecified [nut] Allergy Difficulty Verified 08/16/19 18:43 Breathing History of Present Illness: HERE FOR HEROIN DETOX. CLIENT IS REFERRED BY MIROSLAVA TURNER AFTER SEEKING RESIDENTIAL TXMENT. CLIENT IS KNOWN TO THIS PROGRAM. LAST HERE 1 MONTH AGO. HE REPORTS COMPLETING DETOX AND THEN WENT TO [facility] FOR REHAB. DID 14 DAYS. HE STATES RELAPSING SOON AFTER. About 10 days ago. reports daily USE OF 4 TO 5 BAGS OF HEROIN VIA IV. LAST BEING A FEW HOURS AGO. PRESENTS WITH C/O WITHDRAWAL SX'S. HX/O DRUG OVERDOSE, LAST BEING ABOUT 3 MONTHS AGO. HE ALSO REPORTS CANNABIS AND COCAINE ABUSE. LONGEST CLEAN TIME 8 MONTHS. DENIES ANY IN THE PAST YEAR. HOMELESS, UNEMPLOYED, DENIES LEGALS Exam Limitations: No Limitations - Ebola screening Have you traveled outside of the country in the last 21 days: No (N) Have you had contact with anyone from an Ebola affected area: No Do you have a fever: No - Review of Systems Constitutional: Loss of Appetite, Malaise, Changes in sleep EENT: reports: Blurred Vision, Nose Congestion Respiratory: reports: No Symptoms reported Cardiac: reports: No Symptoms Reported GI: reports: Nausea, Poor Appetite, Poor Fluid Intake : reports: No Symptoms Reported Musculoskeletal: reports: Back Pain Integumentary: reports: No Symptoms Reported Neuro: reports: No Symptoms reported Endocrine: reports: No Symptoms Reported Hematology: reports: No Symptoms Reported Psychiatric: reports: Orientated x3, Anxious, Depressed (DENIES SI) Other Systems: Reviewed and Negative Patient History - Patient Medical History Hx Anemia: No Hx Asthma: Yes (Albuterol) Hx Chronic Obstructive Pulmonary Disease (COPD): No Hx Cancer: No Hx Cardiac Disorders: No Hx Congestive Heart Failure: No Hx Hypertension: No Hx Hypercholesterolemia: No Hx Pacemaker: No HX Cerebrovascular Accident: No Hx Seizures: No Hx Diabetes: No Hx Gastrointestinal Disorders: No Hx Liver Disease: No Hx Genitourinary Disorders: No Hx Sexually Transmitted Disorders: No Hx Renal Disease (ESRD): No Hx Thyroid Disease: No Hx Human Immunodeficiency Virus (HIV): No Hx Hepatitis C: Yes (TX'ED) Hx Depression: Yes (NON COMPLAINT WITH TRAZODONE, WELLBUTRIN, GABAPENTIN) Hx Suicide Attempt: No Hx Bipolar Disorder: No Hx Schizophrenia: No Other Medical History: ANXIETY, INSOMNIA - Patient Surgical History Past Surgical History: No Hx Neurologic Surgery: No Hx Cataract Extraction: No Hx Cardiac Surgery: No Hx Lung Surgery: No Hx Breast Surgery: No Hx Breast Biopsy: No Hx Abdominal Surgery: No Hx Appendectomy: No Hx Cholecystectomy: No Hx Genitourinary Surgery: No Hx Section: No Hx Orthopedic Surgery: No Anesthesia Reaction: No - PPD History Previous Implant?: Yes Documented Results: Negative w/proof Implanted On Prior R Admission?: Yes Date: 08/26/18 Results: NEGATIVE PPD to be Administered?: No - Smoking Cessation Smoking history: Current every day smoker Have you smoked in the past 12 months: Yes Aproximately how many cigarettes per day: 10 Cigars Per Day: 0 Hx Chewing Tobacco Use: No Initiated information on smoking cessation: Yes 'Breaking Loose' booklet given: 08/16/19 - Substance & Tx. History Hx Alcohol Use: Yes Hx Substance Use: Yes Substance Use Type: Cocaine, Heroin, Marijuana Hx Substance Use Treatment: Yes ([facility]) - Substances abused Heroin Substance route: Injection (SNIFFS SOMTIMES) Frequency: Daily Amount used: 5 bags Age of first use: 29 Date of last use: 08/16/19 (4 BAGS) Cocaine Substance route: Smoking Frequency: Daily Amount used: $40 Age of first use: 27 Date of last use: 08/16/19 ($20) Admission Physical Exam BHS - Vital Signs Vital Signs: Vital Signs - 24 hr 08/16/19 18:36 Temperature 97.9 F Pulse Rate 89 Respiratory 18 Rate Blood Pressure 120/70 - Physical General Appearance: Yes: Moderate Distress, Tremorous, Anxious HEENTM: Yes: EOMI, Normocephalic, Normal Voice, [place], Pharynx Normal Respiratory: Yes: Chest Non-Tender, Lungs Clear, Normal Breath Sounds, No Respiratory Distress, No Accessory Muscle Use Neck: Yes: No masses,lesions,Nodules, Supple, Trachea in good position Breast: Yes: Breasts Symetrical Cardiology: Yes: Regular Rhythm, S1, S2, Tachycardia Abdominal: Yes: Non Tender, Soft, Increased Bowel Sounds Genitourinary: Yes: Within Normal Limits Back: Yes: Normal Inspection Musculoskeletal: Yes: full range of Motion, Gait Steady Extremities: Yes: Normal Capillary Refill, Normal Range of Motion, Tremors Neurological: Yes: Fully Oriented, Alert, Motor Strength 5/5, Depressed Affect Integumentary: Yes: Cold (COOL) Lymphatic: Yes: Within Normal Limits - Diagnostic (1) Homeless Current Visit: Yes Status: Suspected Comment: REPORTED (2) Depressed affect Current Visit: Yes Status: Acute (3) Non compliance w medication regimen Current Visit: Yes Status: Chronic (4) IVDU (intravenous drug user) Current Visit: Yes Status: Acute (5) Cannabis dependence Current Visit: Yes Status: Acute (6) Nicotine dependence Current Visit: Yes Status: Chronic Qualifiers: Nicotine product type: cigarettes Substance use status: uncomplicated Qualified Code(s): F17.210 - Nicotine dependence, cigarettes, uncomplicated (7) Opioid dependence with withdrawal Current Visit: Yes Status: Acute (8) Substance-induced sleep disorder Current Visit: Yes Status: Chronic (9) Asthma Current Visit: Yes Status: Chronic Qualifiers: Asthma severity: mild Asthma persistence: intermittent Asthma complication type: unspecified Qualified Code(s): J45.20 - Mild intermittent asthma, uncomplicated (10) Cocaine dependence Current Visit: Yes Status: Acute Qualifiers: Substance use status: uncomplicated Qualified Code(s): F14.20 - Cocaine dependence, uncomplicated Cleared for Admission BHS - Detox or Rehab [facility] Level of Care: Medically Managed Detox Regimen/Protocol: Methadone Claeared for Rehab Admission: No Breathalyzer - Breathalyzer Breathalyzer: 0 Urine Drug Screen - Test Device Lot number: [id number] Expiration date: 03/24/21 - Control Is test valid?: Yes - Results Drug screen NEGATIVE: No Urine drug screen results: THC-Marijuana, HARDEEP-Cocaine, AMP-Amphetamines, MOP- Opiates Inpatient Rehab Admission - Rehab Decision to Admit Inpatient rehab admission?: No
[2019-08-16] MEDS ORDERED: P-EPHED 60MG/TRIPROLIDI 2.5MG TABLET PO PRN (21:59)
[2019-08-16] MEDS ORDERED: NALOXONE HCL 0.4 MG/ML VIAL IM PRN (21:59)
[2019-08-16] MEDS ORDERED: MAGNESIUM HYDROX 2400MG/30ML ORAL SUSPENSION 30 ML CUP PO PRN (21:59)
[2019-08-16] MEDS ORDERED: METHADONE HCL 10 MG TABLET (FOR DETOX USE ONLY) PO ONE (21:59)
[2019-08-16] MEDS ORDERED: ONDANSETRON *ODT* 4 MG TABLET SL PRN (21:59)
[2019-08-16] MEDS ORDERED: guaiFENesin 200 MG/10 ML 10 ML UNIT-DOSE CUPS PO PRN (21:59)
[2019-08-16] MEDS ORDERED: IBUPROFEN 400 MG TABLET (FP) PO PRN (21:59)
[2019-08-16] MEDS ORDERED: MAGNESIUM CITRATE 300 ML BOTTLE PO PRN (21:59)
[2019-08-16] MEDS ORDERED: NICOTINE POLACRILEX 2 MG GUM BUC PRN (21:59)
[2019-08-16] MEDS ORDERED: hydrOXYzine PAMOATE 25 MG CAPSULE (FP) PO PRN (21:59)
[2019-08-16] MEDS ORDERED: ACETAMINOPHEN 325 MG TABLET (FP) PO PRN ×2 (21:59)
[2019-08-16] MEDS ORDERED: cloNIDine HCL 0.1 MG TABLET PO PRN (21:59)
[2019-08-16] MEDS ORDERED: MAG HYDROX/AL HYDROX/SIMETH 30 ML UNIT-DOSE CUP PO PRN (21:59)
[2019-08-16] MEDS ORDERED: DICYCLOMINE HCL 10 MG CAPSULE PO PRN (21:59)
[2019-08-16] MEDS ORDERED: BISMUTH SUBSALICYLATE 524 MG/30 ML UD PO PRN (21:59)
[2019-08-16] MEDS: THIAMINE HCL 100 MG TABLET (FP) PO SCH (22:35)
[2019-08-16] MEDS: MELATONIN 5 MG TABLETS PO PRN (22:35)
[2019-08-17] MEDS: MENTHOL/PHENOL 1 EACH UD MM PRN (05:20)
[2019-08-17] MEDS: ALBUTEROL SO4 8 GM HFA INHALER IH PRN ×3 (08:41→15:20)
--- NOTE | 2019-08-17 08:47 | CONSULT ---
[facility] Psychiatric Consult - Data Date of interview: 08/17/19 ([facility]) Admission source: [facility] Identifying data: Mr Berman is a 34 years old single Black male, unemployed receiving food stamp, homeless seeking detox treatment for opioid, cocaine and cannabis Substance Abuse History: Reports history of heroin, cocaine and marijuana use. Refer to addiction counselor's summary for further information Medical History: Significant for bronchial asthma, history of treatment for hepatitis C and surgery for I&D abscess left ear. Smokes 10 cigarettes daily Psychiatric History: Patient is known to principal technical writer from a previous admission to this facility in August 2018. Historical narrative remains consistent. He reports that his first psychiatric contact was in 1999 when he was diagnosed with MDD and treated with psychotherapy. He received psychotherapy from 1999 to 2011. In February 2018, he started seeing a psychiatrist at [facility] in the [place] and was prescribed Wellbutrin XL 150 mg po daily for depression. During his most recent admission to this facility last February, he saw Dr Sharma on 07/07/19 and he was continued on Wellbutrin XL 300 mg/day and Trazadone 50 mg /day which were his current medication prescribed by his psychiatrist at [facility]. On discharge from this facility on 07/11/19 he was referred to [facility] for inpatient rehab and there in addition to Wellbutin XL and Trazadone, he was started on Gabapentin. He does not recall the dose of that medication. He was discharged from [facility] on 07/28/[address] [facility] for retirement residential treatment. Told principal technical writer that he did complete and left that facility on 08/11/19 because he did not like the condition there. He said the place was unkept and the food was lousy. He said that he was not receiving medication while there and has been off medication since he got there. Denies previous psychiatric hospitalization or suicidal attempt. At present, denies experiencing deprssive symptoms, S/H ideations. However, reports sleeping poorly. Requests to resume Wellbutrin XL, Trazadone and Gabapentin Physical/Sexual Abuse/Trauma History: Denies history of emotional, physical or sexual abuse as well as DV relationship. No service Additional Comment: Reports history of a few misdemeanor arrests on charges of trespassing Mental Status Exam - Mental Status Exam Alert and Oriented to: Time, Place, Person Cognitive Function: Fair Patient Appearance: Well Groomed Mood: Hopeful, Euthymic Patient Behavior: Cooperative Speech Pattern: Clear Voice Loudness: Normal Thought Process: Intact, Goal Oriented Thought Disorder: Not Present Hallucinations: Denies Homicidal Ideation: Denies Insight/Judgement: Poor Sleep: Poorly Appetite: Good Muscle strength/Tone: Normal Gait/Station: Normal Psychiatric Findings - Problem List ([place] 1, 2,3) (1) MDD (major depressive disorder) Current Visit: No Status: Chronic Qualifiers: Major depression recurrence: single episode Active/Remission status: remission status unspecified Qualified Code(s): F32.9 - Major depressive disorder, single episode, unspecified (2) Substance-induced sleep disorder Current Visit: Yes Status: Acute (3) Opioid dependence with withdrawal Current Visit: Yes Status: Acute (4) Cocaine dependence Current Visit: Yes Status: Acute Qualifiers: Substance use status: uncomplicated Qualified Code(s): F14.20 - Cocaine dependence, uncomplicated (5) Cannabis dependence Current Visit: Yes Status: Acute (6) Nicotine dependence Current Visit: Yes Status: Chronic Qualifiers: Nicotine product type: cigarettes Substance use status: uncomplicated Qualified Code(s): F17.210 - Nicotine dependence, cigarettes, uncomplicated (7) Asthma Current Visit: Yes Status: Chronic Qualifiers: Asthma severity: mild Asthma persistence: intermittent Asthma complication type: unspecified Qualified Code(s): J45.20 - Mild intermittent asthma, uncomplicated (8) Hepatitis C Current Visit: No Status: Resolved Qualifiers: Viral hepatitis chronicity: carrier Qualified Code(s): B18.2 - Chronic viral hepatitis C - Initial Treatment Plan Initial Treatment Plan: 1) Resume Wellbutrin XL 300 mg po dailt and Trazadone 50 mg po HS. 2) Start Gabapentin 300 mg po BID. 3) Continue inpatient detoxification
[2019-08-17] MEDS ORDERED: METHADONE HCL 5 MG TABLET (FOR DETOX USE ONLY) ONE (08:56)
[2019-08-17] MEDS ORDERED: METHADONE HCL 10 MG TABLET (FOR DETOX USE ONLY) ONE (08:56)
--- NOTE | 2019-08-17 09:18 | PN ---
BHS COWS - Scale Resting Pulse: 1= [place] 81-100 Sweatin= Chills/Flushing Restless Observation: 1= Difficult to Sit Still Pupil Size: 0= Normal to Room Light Bone or Joint Aches: 1= Mild Discomfort Runny Nose/ Eye Tearin= Nasal Congestion GI Upset > 30mins: 0= None Tremor Observation of Outstretched Hands: 1= Tremor [place], Not Seen Yawning Observation: 1= 1-2x During Session Anxiety or Irritability: 2=Irritable/Anxious Goose Flesh Skin: 0=Smooth Skin COWS Score: 9 BHS Progress Note (SOAP) Subjective: anxiety restless body aches nausea Objective: 08/17/19 09:17 Vital Signs Temperature 97.2 F L 08/17/19 06:08 Pulse Rate 52 L 08/17/19 06:08 Respiratory Rate 16 08/17/19 06:08 Blood Pressure 129/70 08/17/19 06:08 O2 Sat by Pulse Oximetry (%) pending labs aaox3 ambulating no acute distress Assessment: 08/17/19 09:17 withdrawals Plan: continue detox increase fluids aleks munoz prn
[2019-08-17] MEDS: NICOTINE 14 MG/24 HOURS TOPICAL PATCH TD SCH (09:20)
[2019-08-17] MEDS: PRENATAL VITAMINS W/ FOLIC ACID TABLET (FP) PO SCH (09:21)
[2019-08-17] MEDS: GABAPENTIN 300 MG CAPSULE (FP) PO SCH ×2 (09:22→22:09)
[2019-08-17] MEDS ORDERED: METHADONE (DETOX) 20 MG, METHADONE (DETOX) 5 MG PO ONE (10:00)
[2019-08-17 10:20] LABS: HEMATOCRIT 41.1 % (35.4-49); HEMOGLOBIN 13.3 GM/dL (11.7-16.9); MCH 25.7 pg (25.7-33.7); MCHC 32.5 g/dl (32.0-35.9); MEAN CELL VOLUME 79.3 fl (80-96); MEAN PLT VOLUME 9.4 fl (7.5-11.1); PLATELET COUNT 195 K/MM3 (134-434); RBC 5.18 M/mm3 (4.00-5.60); RDW 15.5 % (11.9-15.9); WHITE BLOOD COUNT 8.5 K/mm3 (4.0-10.0)
[2019-08-17 11:38] LABS: BILIRUBIN,TOTAL 0.2 mg/dL (0.2-1); BLOOD UREA NITROGEN 11.8 mg/dL (7-18); CALCIUM 8.6 mg/dL (8.5-10.1); POTASSIUM 3.6 mmol/L (3.5-5.1); TOT PROT 7.1 g/dl (6.4-8.2)
[2019-08-17] MEDS ORDERED: ALBUTEROL SO4 2.5/IPRATROPIUM 0.5 INH SOL 3 ML VIAL.NEB. NEB PRN (18:46)
[2019-08-17] MEDS ORDERED: ALBUTEROL SO4 2.5/IPRATROPIUM 0.5 INH SOL 3 ML VIAL.NEB. NEB ONE (19:00)
[2019-08-17] MEDS: THIAMINE HCL 100 MG TABLET (FP) PO SCH (22:09)
[2019-08-17] MEDS: traZODone HCL 50 MG TABLET (FP) PO SCH (22:09)
[2019-08-17] MEDS: BUDESONIDE/FORMETEROL FUMARATE 160/4.5 mcg INHALER IH SCH (22:10)
[2019-08-18] MEDS: MENTHOL/PHENOL 1 EACH UD MM PRN (07:39)
[2019-08-18] MEDS ORDERED: METHADONE HCL 10 MG TABLET (FOR DETOX USE ONLY) PO ONE (10:00)
[2019-08-18] MEDS: PRENATAL VITAMINS W/ FOLIC ACID TABLET (FP) PO SCH (10:20)
[2019-08-18] MEDS: GABAPENTIN 300 MG CAPSULE (FP) PO SCH ×2 (10:20→22:11)
[2019-08-18] MEDS: BUDESONIDE/FORMETEROL FUMARATE 160/4.5 mcg INHALER IH SCH ×2 (10:21→22:13)
[2019-08-18] MEDS: NICOTINE 14 MG/24 HOURS TOPICAL PATCH TD SCH (10:21)
--- NOTE | 2019-08-18 11:17 | PN ---
BHS COWS - Scale Resting Pulse: 0= [place] 80 or Below Sweatin= Chills/Flushing Restless Observation: 1= Difficult to Sit Still Pupil Size: 0= Normal to Room Light Bone or Joint Aches: 1= Mild Discomfort Runny Nose/ Eye Tearin= Nasal Congestion GI Upset > 30mins: 0= None Tremor Observation of Outstretched Hands: 1= Tremor [place], Not Seen Yawning Observation: 1= 1-2x During Session Anxiety or Irritability: 1=Feels Anxious/Irritable Goose Flesh Skin: 0=Smooth Skin COWS Score: 7 BHS Progress Note (SOAP) Subjective: body aches sweats restless Objective: 08/18/19 11:16 Vital Signs Temperature 98.4 F 08/18/19 09:18 Pulse Rate 80 08/18/19 09:18 Respiratory Rate 18 08/18/19 09:18 Blood Pressure 140/71 08/18/19 09:18 O2 Sat by Pulse Oximetry (%) Laboratory Tests 08/17/19 08/17/19 08/17/19 07:00 07:00 07:00 WBC 8.5 RBC 5.18 Hgb 13.3 Hct 41.1 MCV 79.3 L MCH 25.7 MCHC 32.5 RDW 15.5 Plt Count 195 D MPV 9.4 Sodium 141 Potassium 3.6 Chloride 106 Carbon Dioxide 28 Anion Gap 7 L BUN 11.8 Creatinine 1.0 Est GFR (CKD-EPI)AfAm 114.91 Est GFR (CKD-EPI)NonAf 99.15 Random Glucose 64 L Calcium 8.6 Total Bilirubin 0.2 AST 14 L ALT 35 Alkaline Phosphatase 73 Total Protein 7.1 Albumin 4.0 RPR Titer Nonreactive aaox3 ambulating no acute distress Assessment: 08/18/19 11:16 withdrawals Plan: continue detox increase fluids
[2019-08-18 18:24] LABS: URINE APPEARANCE CLEAR; URINE BILIRUBIN NEGATIVE (NEGATIVE); URINE COLOR YELLOW; URINE GLUCOSE (UA) NEGATIVE (NEGATIVE); URINE KETONE NEGATIVE (NEGATIVE); URINE LEUK ESTERASE NEGATIVE (NEGATIVE); URINE NITRITE NEGATIVE (NEGATIVE); URINE PROTEIN NEGATIVE (NEGATIVE); URINE UROBILINOGEN 0.2 mg/dL (0.2-1.0)
[2019-08-18] MEDS: THIAMINE HCL 100 MG TABLET (FP) PO SCH (22:11)
[2019-08-18] MEDS: traZODone HCL 50 MG TABLET (FP) PO SCH (22:11)
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
--- NOTE | 2019-08-19 09:44 | PN ---
BHS COWS - Scale Resting Pulse: 0= [place] 80 or Below Sweatin= Chills/Flushing Restless Observation: 1= Difficult to Sit Still Pupil Size: 0= Normal to Room Light Bone or Joint Aches: 2= Severe Diffuse Aches Runny Nose/ Eye Tearin= None GI Upset > 30mins: 0= None Tremor Observation of Outstretched Hands: 0= None Yawning Observation: 0= None Anxiety or Irritability: 2=Irritable/Anxious Goose Flesh Skin: 0=Smooth Skin COWS Score: 6 BHS Progress Note (SOAP) Subjective: c/o sweats, muscle aches, and anxiety. Objective: 08/19/19 09:43 Vital Signs 08/19/19 08/19/19 08/19/19 03:30 06:01 09:15 Temperature 97.8 F 96.7 F L Pulse Rate 62 77 Respiratory 18 18 18 Rate Blood Pressure 111/69 123/76 Laboratory Last Values WBC 8.5 K/mm3 (4.0-10.0) 08/17/19 07:00 RBC 5.18 M/mm3 (4.00-5.60) 08/17/19 07:00 Hgb 13.3 GM/dL (11.7-16.9) 08/17/19 07:00 Hct 41.1 % (35.4-49) 08/17/19 07:00 MCV 79.3 fl (80-96) L 08/17/19 07:00 MCH 25.7 pg (25.7-33.7) 08/17/19 07:00 MCHC 32.5 g/dl (32.0-35.9) 08/17/19 07:00 RDW 15.5 % (11.9-15.9) 08/17/19 07:00 Plt Count 195 K/MM3 (134-434) D 08/17/19 07:00 MPV 9.4 fl (7.5-11.1) 08/17/19 07:00 Sodium 141 mmol/L (136-145) 08/17/19 07:00 Potassium 3.6 mmol/L (3.5-5.1) 08/17/19 07:00 Chloride 106 mmol/L (98-107) 08/17/19 07:00 Carbon Dioxide 28 mmol/L (21-32) 08/17/19 07:00 Anion Gap 7 MMOL/L (8-16) L 08/17/19 07:00 BUN 11.8 mg/dL (7-18) 08/17/19 07:00 Creatinine 1.0 mg/dL (0.55-1.3) 08/17/19 07:00 Est GFR (CKD-EPI)AfAm 114.91 08/17/19 07:00 Est GFR (CKD-EPI)NonAf 99.15 08/17/19 07:00 Random Glucose 64 mg/dL (74-106) L 08/17/19 07:00 Calcium 8.6 mg/dL (8.5-10.1) 08/17/19 07:00 Total Bilirubin 0.2 mg/dL (0.2-1) 08/17/19 07:00 AST 14 U/L (15-37) L 08/17/19 07:00 ALT 35 U/L (13-61) 08/17/19 07:00 Alkaline Phosphatase 73 U/L (45-117) 08/17/19 07:00 Total Protein 7.1 g/dl (6.4-8.2) 08/17/19 07:00 Albumin 4.0 g/dl (3.4-5.0) 08/17/19 07:00 Urine Color Yellow 08/18/19 10:43 Urine Appearance Clear 08/18/19 10:43 Urine pH 6.0 (5.0-8.0) 08/18/19 10:43 Ur Specific [place] 1.014 (1.010-1.035) 08/18/19 10:43 Urine Protein Negative (NEGATIVE) 08/18/19 10:43 Urine Glucose (UA) Negative (NEGATIVE) 08/18/19 10:43 Urine Ketones Negative (NEGATIVE) 08/18/19 10:43 Urine Blood Negative (NEGATIVE) 08/18/19 10:43 Urine Nitrite Negative (NEGATIVE) 08/18/19 10:43 Urine Bilirubin Negative (NEGATIVE) 08/18/19 10:43 Urine Urobilinogen 0.2 mg/dL (0.2-1.0) 08/18/19 10:43 Ur Leukocyte Esterase Negative (NEGATIVE) 08/18/19 10:43 RPR Titer Nonreactive (NONREACTIVE) 08/17/19 07:00 Labs noted. Assessment: 08/19/19 09:44 AOX3, in no acute respiratory distress. Full ROM, ambulating in the unit. Withdrawal symptoms. Plan: continue detox.
[2019-08-19] MEDS ORDERED: METHADONE (DETOX) 10 MG, METHADONE (DETOX) 5 MG PO ONE (10:00)
[2019-08-19] MEDS ORDERED: METHADONE HCL 10 MG TABLET (FOR DETOX USE ONLY) ONE (10:10)
[2019-08-19] MEDS ORDERED: METHADONE HCL 5 MG TABLET (FOR DETOX USE ONLY) ONE (10:11)
[2019-08-19] MEDS: BUDESONIDE/FORMETEROL FUMARATE 160/4.5 mcg INHALER IH SCH ×2 (10:28→22:31)
[2019-08-19] MEDS: PRENATAL VITAMINS W/ FOLIC ACID TABLET (FP) PO SCH (10:29)
[2019-08-19] MEDS: GABAPENTIN 300 MG CAPSULE (FP) PO SCH ×2 (10:30→22:31)
[2019-08-19] MEDS: NICOTINE 14 MG/24 HOURS TOPICAL PATCH TD SCH (11:12)
[2019-08-19] MEDS: METHOCARBAMOL 500 MG TABLET PO PRN (17:33)
[2019-08-19] MEDS: THIAMINE HCL 100 MG TABLET (FP) PO SCH (22:31)
[2019-08-19] MEDS: traZODone HCL 50 MG TABLET (FP) PO SCH (22:31)
[2019-08-19] MEDS: MELATONIN 5 MG TABLETS PO PRN (22:33)
[2019-08-20] MEDS ORDERED: METHADONE HCL 10 MG TABLET (FOR DETOX USE ONLY) PO ONE (10:00)
[2019-08-20] MEDS: GABAPENTIN 300 MG CAPSULE (FP) PO SCH ×2 (10:12→22:13)
[2019-08-20] MEDS: PRENATAL VITAMINS W/ FOLIC ACID TABLET (FP) PO SCH (10:12)
[2019-08-20] MEDS: BUDESONIDE/FORMETEROL FUMARATE 160/4.5 mcg INHALER IH SCH ×2 (10:13→22:12)
[2019-08-20] MEDS: NICOTINE 14 MG/24 HOURS TOPICAL PATCH TD SCH (10:16)
--- NOTE | 2019-08-20 11:00 | PN ---
S COWS - Scale Resting Pulse: 1= [place] 81-100 Sweatin= No chills or Flushing Restless Observation: 0= Sits Still Pupil Size: 0= Normal to Room Light Bone or Joint Aches: 0= None Runny Nose/ Eye Tearin= None GI Upset > 30mins: 0= None Tremor Observation of Outstretched Hands: 0= None Yawning Observation: 0= None Anxiety or Irritability: 2=Irritable/Anxious Goose Flesh Skin: 0=Smooth Skin COWS Score: 3 BHS Progress Note (SOAP) Subjective: c/o mild withdrawal symptoms. Objective: 08/20/19 10:59 Vital Signs 08/20/19 08/20/19 08/20/19 03:30 06:08 09:16 Temperature 97.7 F 96.4 F L Pulse Rate 74 82 Respiratory 18 20 18 Rate Blood Pressure 122/68 123/67 Laboratory Last Values WBC 8.5 K/mm3 (4.0-10.0) 08/17/19 07:00 RBC 5.18 M/mm3 (4.00-5.60) 08/17/19 07:00 Hgb 13.3 GM/dL (11.7-16.9) 08/17/19 07:00 Hct 41.1 % (35.4-49) 08/17/19 07:00 MCV 79.3 fl (80-96) L 08/17/19 07:00 MCH 25.7 pg (25.7-33.7) 08/17/19 07:00 MCHC 32.5 g/dl (32.0-35.9) 08/17/19 07:00 RDW 15.5 % (11.9-15.9) 08/17/19 07:00 Plt Count 195 K/MM3 (134-434) D 08/17/19 07:00 MPV 9.4 fl (7.5-11.1) 08/17/19 07:00 Sodium 141 mmol/L (136-145) 08/17/19 07:00 Potassium 3.6 mmol/L (3.5-5.1) 08/17/19 07:00 Chloride 106 mmol/L (98-107) 08/17/19 07:00 Carbon Dioxide 28 mmol/L (21-32) 08/17/19 07:00 Anion Gap 7 MMOL/L (8-16) L 08/17/19 07:00 BUN 11.8 mg/dL (7-18) 08/17/19 07:00 Creatinine 1.0 mg/dL (0.55-1.3) 08/17/19 07:00 Est GFR (CKD-EPI)AfAm 114.91 08/17/19 07:00 Est GFR (CKD-EPI)NonAf 99.15 08/17/19 07:00 Random Glucose 64 mg/dL (74-106) L 08/17/19 07:00 Calcium 8.6 mg/dL (8.5-10.1) 08/17/19 07:00 Total Bilirubin 0.2 mg/dL (0.2-1) 08/17/19 07:00 AST 14 U/L (15-37) L 08/17/19 07:00 ALT 35 U/L (13-61) 08/17/19 07:00 Alkaline Phosphatase 73 U/L (45-117) 08/17/19 07:00 Total Protein 7.1 g/dl (6.4-8.2) 08/17/19 07:00 Albumin 4.0 g/dl (3.4-5.0) 08/17/19 07:00 Urine Color Yellow 08/18/19 10:43 Urine Appearance Clear 08/18/19 10:43 Urine pH 6.0 (5.0-8.0) 08/18/19 10:43 Ur Specific [place] 1.014 (1.010-1.035) 08/18/19 10:43 Urine Protein Negative (NEGATIVE) 08/18/19 10:43 Urine Glucose (UA) Negative (NEGATIVE) 08/18/19 10:43 Urine Ketones Negative (NEGATIVE) 08/18/19 10:43 Urine Blood Negative (NEGATIVE) 08/18/19 10:43 Urine Nitrite Negative (NEGATIVE) 08/18/19 10:43 Urine Bilirubin Negative (NEGATIVE) 08/18/19 10:43 Urine Urobilinogen 0.2 mg/dL (0.2-1.0) 08/18/19 10:43 Ur Leukocyte Esterase Negative (NEGATIVE) 08/18/19 10:43 RPR Titer Nonreactive (NONREACTIVE) 08/17/19 07:00 Labs noted. Assessment: 08/20/19 10:59 AOX3, in no acute respiratory distress. Full ROM, ambulating in the unit. Mild Withdrawal symptoms. For d/c tomorrow. Plan: continue detox. D/C in AM.
[2019-08-20] MEDS: traZODone HCL 50 MG TABLET (FP) PO SCH (22:13)
[2019-08-20] MEDS: THIAMINE HCL 100 MG TABLET (FP) PO SCH (22:13)
[2019-08-20] MEDS: METHOCARBAMOL 500 MG TABLET PO PRN (22:14)
[2019-08-21] MEDS ORDERED: METHADONE HCL 5 MG TABLET (FOR DETOX USE ONLY) PO ONE (06:00)
[2019-08-21 09:12] VITALS: BP 109/64; PULSE 55; TEMP 97.5
[2019-08-21] MEDS: NICOTINE 14 MG/24 HOURS TOPICAL PATCH TD SCH (10:09)
[2019-08-21] MEDS: BUDESONIDE/FORMETEROL FUMARATE 160/4.5 mcg INHALER IH SCH (10:09)
[2019-08-21] MEDS: GABAPENTIN 300 MG CAPSULE (FP) PO SCH (10:09)
[2019-08-21] MEDS: PRENATAL VITAMINS W/ FOLIC ACID TABLET (FP) PO SCH (10:11)
--- NOTE | 2019-08-21 12:47 | DS ---
[facility] Detox Discharge Summary Admission Date: 08/16/19 Discharge Date: 08/21/19 - History Present History: Cannabis Dependence, Cocaine Dependence, Opioid Dependence Additional Comments: Pt is medically cleared and discharged today. Pt has completed the detox protocol and is discharged to [facility] rehab [facility] for continued management. Pt is encouraged to follow through with the rehab protocol. Pt verbalized understanding of the information given. Pt is alert and oriented x3 and in no respiratory distress. Pertinent Past History: h/o asthma, cocaine, heroin, and cannabis use disorder. - Physical Exam Results Vital Signs: Vital Signs Temperature 97.5 F L 08/21/19 09:11 Pulse Rate 55 L 08/21/19 09:11 Respiratory Rate 18 08/21/19 09:11 Blood Pressure 109/64 08/21/19 09:11 O2 Sat by Pulse Oximetry (%) Vital Signs 08/21/19 08/21/19 06:38 09:11 Temperature 96.7 F L 97.5 F L Pulse Rate 68 55 L Respiratory 18 18 Rate Blood Pressure 118/68 109/64 Laboratory Last Values WBC 8.5 K/mm3 (4.0-10.0) 08/17/19 07:00 RBC 5.18 M/mm3 (4.00-5.60) 08/17/19 07:00 Hgb 13.3 GM/dL (11.7-16.9) 08/17/19 07:00 Hct 41.1 % (35.4-49) 08/17/19 07:00 MCV 79.3 fl (80-96) L 08/17/19 07:00 MCH 25.7 pg (25.7-33.7) 08/17/19 07:00 MCHC 32.5 g/dl (32.0-35.9) 08/17/19 07:00 RDW 15.5 % (11.9-15.9) 08/17/19 07:00 Plt Count 195 K/MM3 (134-434) D 08/17/19 07:00 MPV 9.4 fl (7.5-11.1) 08/17/19 07:00 Sodium 141 mmol/L (136-145) 08/17/19 07:00 Potassium 3.6 mmol/L (3.5-5.1) 08/17/19 07:00 Chloride 106 mmol/L (98-107) 08/17/19 07:00 Carbon Dioxide 28 mmol/L (21-32) 08/17/19 07:00 Anion Gap 7 MMOL/L (8-16) L 08/17/19 07:00 BUN 11.8 mg/dL (7-18) 08/17/19 07:00 Creatinine 1.0 mg/dL (0.55-1.3) 08/17/19 07:00 Est GFR (CKD-EPI)AfAm 114.91 08/17/19 07:00 Est GFR (CKD-EPI)NonAf 99.15 08/17/19 07:00 Random Glucose 64 mg/dL (74-106) L 08/17/19 07:00 Calcium 8.6 mg/dL (8.5-10.1) 08/17/19 07:00 Total Bilirubin 0.2 mg/dL (0.2-1) 08/17/19 07:00 AST 14 U/L (15-37) L 08/17/19 07:00 ALT 35 U/L (13-61) 08/17/19 07:00 Alkaline Phosphatase 73 U/L (45-117) 08/17/19 07:00 Total Protein 7.1 g/dl (6.4-8.2) 08/17/19 07:00 Albumin 4.0 g/dl (3.4-5.0) 08/17/19 07:00 Urine Color Yellow 08/18/19 10:43 Urine Appearance Clear 08/18/19 10:43 Urine pH 6.0 (5.0-8.0) 08/18/19 10:43 Ur Specific [place] 1.014 (1.010-1.035) 08/18/19 10:43 Urine Protein Negative (NEGATIVE) 08/18/19 10:43 Urine Glucose (UA) Negative (NEGATIVE) 08/18/19 10:43 Urine Ketones Negative (NEGATIVE) 08/18/19 10:43 Urine Blood Negative (NEGATIVE) 08/18/19 10:43 Urine Nitrite Negative (NEGATIVE) 08/18/19 10:43 Urine Bilirubin Negative (NEGATIVE) 08/18/19 10:43 Urine Urobilinogen 0.2 mg/dL (0.2-1.0) 08/18/19 10:43 Ur Leukocyte Esterase Negative (NEGATIVE) 08/18/19 10:43 RPR Titer Nonreactive (NONREACTIVE) 08/17/19 07:00 Labs noted. Pertinent Admission Physical Exam Findings: withdrawal symptoms. - Treatment Hospital Course: Detox Protocol Followed, Detoxed Safely, Responded well, Discharged Condition Good, Rehab Referral Accepted Patient has Accepted a Rehab Referral to: [facility] - Medication Discharge Medications: Ambulatory Orders Albuterol Sulfate Inhaler - [Ventolin Hfa Inhaler -] 2 inh PO Q4H 08/17/19 Budesonide/Formeterol Fumarate [SYMBICORT 160/4.5mcg -] 2 inh PO BID 08/17/19 Bupropion HCl [Wellbutrin -] 150 mg PO DAILY 08/17/19 Gabapentin 300 mg PO BID 08/17/19 traZODone HCL [Trazodone HCl] 50 mg PO HS 08/17/19 - Diagnosis (1) Cannabis dependence Status: Acute (2) Cocaine dependence Status: Acute Qualifiers: Substance use status: uncomplicated Qualified Code(s): F14.20 - Cocaine dependence, uncomplicated (3) IVDU (intravenous drug user) Status: Acute (4) Opioid dependence Status: Acute (5) Asthma Status: Chronic Qualifiers: Asthma severity: mild Asthma persistence: intermittent Asthma complication type: unspecified Qualified Code(s): J45.20 - Mild intermittent asthma, uncomplicated (6) Nicotine dependence Status: Chronic Qualifiers: Nicotine product type: cigarettes Substance use status: uncomplicated Qualified Code(s): F17.210 - Nicotine dependence, cigarettes, uncomplicated (7) Hepatitis C Status: Resolved Qualifiers: Viral hepatitis chronicity: carrier Qualified Code(s): B18.2 - Chronic viral hepatitis C - AMA Did Patient Leave Against Medical Advice: No
== END 2019-08-21 11:20 | disposition home or self-care (01) | DRG 773 ==
LOC: YASAS 18:33 → Y6N 22:10 → Y3N 08-18 21:05
PROVIDERS: ADMIT Allergy & Immunology; ATTEND Allergy & Immunology
PROC: HZ2ZZZZ Detoxification Services for Substance Abuse Treatment (ICD-10-PCS; principal; 2019-08-16)
DX: F11.23 Opioid dependence with withdrawal (principal); F14.20 Cocaine dependence, uncomplicated; F12.20 Cannabis dependence, uncomplicated; F17.210 Nicotine dependence, cigarettes, uncomplicated; F32.9 Major depressive disorder, single episode, unspecified; F19.282 Other psychoactive substance dependence with psychoactive substance-induced sleep disorder; J45.20 Mild intermittent asthma, uncomplicated; B18.2 Chronic viral hepatitis C; R00.0 Tachycardia, unspecified; Z91.14 Patient's other noncompliance with medication regimen; Z91.010 Allergy to peanuts; Z56.0 Unemployment, unspecified; Z59.0 Homelessness
CPT/HCPCS: 36415; 80053; 81003; 85027; 86593; 94640

== ENCOUNTER 2019-08-21 11:32 | Inpatient (IN) | payer OTHER ==
--- NOTE | 2019-08-21 12:41 | HP ---
[facility] Rehab Assess/Revision - Admission History Admitted to Rehab from: [facility] Date of Admission to Rehab: 08/21/2019 - Vital signs Vital Signs: Vital Signs Period Temp Pulse Resp BP Sys/Leggett Pulse Ox Last 24 Hr 97.3 F 62 18 119/73 Vital Signs 08/21/19 11:40 Temperature 97.3 F L Pulse Rate 62 Respiratory 18 Rate Blood Pressure 119/73 - Findings Detox History & Physical reviewed: Yes Concur with findings: Yes Inpatient Rehab Admission - Rehab Decision to Admit Inpatient rehab admission?: Yes - Initial Determination Are CD services needed?: Yes Free of communicable disease: Yes Not in need of hospitalization: Yes - Rehab Admission Criteria Previous failed treatment: Yes Poor recovery environment: Yes Comorbidities: Yes Lacks judgement: No Patient is meeting Inpatient Rehab admission criteria:: Yes
[2019-08-21] MEDS ORDERED: P-EPHED 60MG/TRIPROLIDI 2.5MG TABLET PO PRN (12:51)
[2019-08-21] MEDS ORDERED: guaiFENesin 200 MG/10 ML 10 ML UNIT-DOSE CUPS PO PRN (12:51)
[2019-08-21] MEDS ORDERED: MENTHOL/PHENOL 1 EACH UD MM PRN (12:51)
[2019-08-21] MEDS ORDERED: LOPERAMIDE HCL 2 MG CAPSULE PO PRN (12:51)
[2019-08-21] MEDS ORDERED: NICOTINE POLACRILEX 2 MG GUM BUC PRN (12:51)
[2019-08-21] MEDS ORDERED: MAGNESIUM HYDROX 2400MG/30ML ORAL SUSPENSION 30 ML CUP PO PRN (12:51)
[2019-08-21] MEDS ORDERED: ALBUTEROL SO4 2.5/IPRATROPIUM 0.5 INH SOL 3 ML VIAL.NEB. NEB PRN (12:53)
[2019-08-21] MEDS: ACETAMINOPHEN 325 MG TABLET (FP) PO PRN (13:28)
--- NOTE | 2019-08-21 16:16 | PN ---
[facility] Progress Note Note: Psychiatry Attending's note : Made aware of this patient's transfer to [address] From [address] [place] [address]. Chart reviewed. Patient is already known to this marketing writer from past visits to [facility]. Medications revisited. Confirmed care on wellbutrin XL 150 mg/day + trazodone 50 mg/hs. In addition to gabapentin 300 mg/bid. No report of adverse events. Medications well tolerated. For continuity of care : Wellbutrin XL 150 mg po daily Trazodone 50 mg po hs Gabapentin 300 mg po bid. Side effects/benefits discussed with the patient. Informed consent obtained from patient. Mr Berman remains in agreement with this plan of care.
[2019-08-21] MEDS: BUDESONIDE/FORMETEROL FUMARATE 160/4.5 mcg INHALER IH SCH (21:24)
[2019-08-21] MEDS: GABAPENTIN 300 MG CAPSULE PO SCH (21:24)
[2019-08-21] MEDS: traZODone HCL 50 MG TABLET (FP) PO SCH (21:24)
[2019-08-21] MEDS: MELATONIN 5 MG TABLETS PO PRN (21:24)
[2019-08-21] MEDS: THIAMINE HCL 100 MG TABLET (FP) PO SCH (21:24)
[2019-08-22] MEDS: NICOTINE 14 MG/24 HOURS TOPICAL PATCH TD SCH (10:22)
[2019-08-22] MEDS: GABAPENTIN 300 MG CAPSULE PO SCH ×2 (10:22→21:18)
[2019-08-22] MEDS: PRENATAL VITAMINS W/ FOLIC ACID TABLET (FP) PO SCH (10:22)
[2019-08-22] MEDS: BUDESONIDE/FORMETEROL FUMARATE 160/4.5 mcg INHALER IH SCH ×2 (10:23→21:20)
[2019-08-22] MEDS: MELATONIN 5 MG TABLETS PO PRN (21:18)
[2019-08-22] MEDS: traZODone HCL 50 MG TABLET (FP) PO SCH (21:18)
[2019-08-22] MEDS: THIAMINE HCL 100 MG TABLET (FP) PO SCH (21:18)
[2019-08-23] MEDS: NICOTINE 14 MG/24 HOURS TOPICAL PATCH TD SCH (10:15)
[2019-08-23] MEDS: GABAPENTIN 300 MG CAPSULE PO SCH ×2 (10:15→21:41)
[2019-08-23] MEDS: PRENATAL VITAMINS W/ FOLIC ACID TABLET (FP) PO SCH (10:15)
[2019-08-23] MEDS: BUDESONIDE/FORMETEROL FUMARATE 160/4.5 mcg INHALER IH SCH ×2 (10:20→21:42)
[2019-08-23] MEDS: THIAMINE HCL 100 MG TABLET (FP) PO SCH (21:41)
[2019-08-23] MEDS: traZODone HCL 50 MG TABLET (FP) PO SCH (21:41)
[2019-08-24] MEDS: PRENATAL VITAMINS W/ FOLIC ACID TABLET (FP) PO SCH (09:52)
[2019-08-24] MEDS: NICOTINE 14 MG/24 HOURS TOPICAL PATCH TD SCH (09:52)
[2019-08-24] MEDS: GABAPENTIN 300 MG CAPSULE PO SCH (09:52)
[2019-08-24] MEDS: BUDESONIDE/FORMETEROL FUMARATE 160/4.5 mcg INHALER IH SCH ×2 (09:54→21:40)
[2019-08-24] MEDS ORDERED: GABAPENTIN 300 MG CAPSULE PO SCH (14:11)
[2019-08-24] MEDS ORDERED: BENZOYL PEROXIDE 5% 60 GM GEL..GRAM. TP ONE (14:17)
--- NOTE | 2019-08-24 14:17 | PN ---
S Progress Note Note: Pt was prescribed neurotin 300mg BID- says that he would like the night time meds at 6pm rather than 10pm. Pt would like Benzoyl peroxide for facial ance. PE: Vital Signs - 24 hr 08/24/19 08/24/19 08/24/19 00:30 03:30 06:46 Temperature 97.9 F Pulse Rate 77 Respiratory 18 18 18 Rate Blood Pressure 100/67 few scattered papules on face a/p: acne- benzoyl peroxide
[2019-08-24] MEDS: MELATONIN 5 MG TABLETS PO PRN (21:39)
[2019-08-24] MEDS: traZODone HCL 50 MG TABLET (FP) PO SCH (21:39)
[2019-08-24] MEDS: THIAMINE HCL 100 MG TABLET (FP) PO SCH (21:39)
[2019-08-25] MEDS: BUDESONIDE/FORMETEROL FUMARATE 160/4.5 mcg INHALER IH SCH ×2 (09:41→21:43)
[2019-08-25] MEDS: PRENATAL VITAMINS W/ FOLIC ACID TABLET (FP) PO SCH (09:41)
[2019-08-25] MEDS: NICOTINE 14 MG/24 HOURS TOPICAL PATCH TD SCH (09:43)
[2019-08-25] MEDS: GABAPENTIN 300 MG CAPSULE PO SCH (09:43)
[2019-08-25] MEDS: MELATONIN 5 MG TABLETS PO PRN (21:42)
[2019-08-25] MEDS: traZODone HCL 50 MG TABLET (FP) PO SCH (21:42)
[2019-08-25] MEDS: THIAMINE HCL 100 MG TABLET (FP) PO SCH (21:42)
[2019-08-26] MEDS: GABAPENTIN 300 MG CAPSULE PO SCH (10:10)
[2019-08-26] MEDS: BUDESONIDE/FORMETEROL FUMARATE 160/4.5 mcg INHALER IH SCH ×2 (10:10→21:09)
[2019-08-26] MEDS: PRENATAL VITAMINS W/ FOLIC ACID TABLET (FP) PO SCH (10:10)
[2019-08-26] MEDS: NICOTINE 14 MG/24 HOURS TOPICAL PATCH TD SCH (10:10)
--- NOTE | 2019-08-26 11:27 | PN ---
[facility] Progress Note Note: Pt requesting to continue Beozoyl peroxide for acne- ordered daily prn Requesting medication for jock itch- lotrimin ordered
[2019-08-26] MEDS: CLOTRIMAZOLE 1% CREAM 15 GM TUBE TP SCH ×2 (14:11→21:09)
[2019-08-26] MEDS: traZODone HCL 50 MG TABLET (FP) PO SCH (21:10)
[2019-08-26] MEDS: hydrOXYzine PAMOATE 25 MG CAPSULE (FP) PO PRN (21:10)
[2019-08-26] MEDS: THIAMINE HCL 100 MG TABLET (FP) PO SCH (21:10)
[2019-08-27] MEDS: PRENATAL VITAMINS W/ FOLIC ACID TABLET (FP) PO SCH (10:18)
[2019-08-27] MEDS: hydrOXYzine PAMOATE 25 MG CAPSULE (FP) PO PRN ×2 (10:19→21:40)
[2019-08-27] MEDS: GABAPENTIN 300 MG CAPSULE PO SCH (10:19)
[2019-08-27] MEDS: BUDESONIDE/FORMETEROL FUMARATE 160/4.5 mcg INHALER IH SCH ×2 (10:19→21:38)
[2019-08-27] MEDS: NICOTINE 14 MG/24 HOURS TOPICAL PATCH TD SCH (10:19)
[2019-08-27] MEDS: CLOTRIMAZOLE 1% CREAM 15 GM TUBE TP SCH ×2 (10:21→21:39)
[2019-08-27] MEDS: traZODone HCL 50 MG TABLET (FP) PO SCH (21:38)
[2019-08-27] MEDS: THIAMINE HCL 100 MG TABLET (FP) PO SCH (21:38)
[2019-08-28] MEDS: PRENATAL VITAMINS W/ FOLIC ACID TABLET (FP) PO SCH (10:04)
[2019-08-28] MEDS: GABAPENTIN 300 MG CAPSULE PO SCH (10:05)
[2019-08-28] MEDS: hydrOXYzine PAMOATE 25 MG CAPSULE (FP) PO PRN ×2 (10:05→21:53)
[2019-08-28] MEDS: NICOTINE 14 MG/24 HOURS TOPICAL PATCH TD SCH (10:05)
[2019-08-28] MEDS: BUDESONIDE/FORMETEROL FUMARATE 160/4.5 mcg INHALER IH SCH ×2 (10:06→21:51)
[2019-08-28] MEDS: CLOTRIMAZOLE 1% CREAM 15 GM TUBE TP SCH ×2 (10:32→21:52)
[2019-08-28] MEDS: traZODone HCL 50 MG TABLET (FP) PO SCH (21:51)
[2019-08-28] MEDS: THIAMINE HCL 100 MG TABLET (FP) PO SCH (21:51)
[2019-08-28] MEDS: MAG HYDROX/AL HYDROX/SIMETH 30 ML UNIT-DOSE CUP PO PRN (23:59)
[2019-08-29] MEDS: GABAPENTIN 300 MG CAPSULE PO SCH (09:31)
[2019-08-29] MEDS: PRENATAL VITAMINS W/ FOLIC ACID TABLET (FP) PO SCH (09:31)
[2019-08-29] MEDS: BUDESONIDE/FORMETEROL FUMARATE 160/4.5 mcg INHALER IH SCH ×2 (09:31→21:34)
[2019-08-29] MEDS: NICOTINE 14 MG/24 HOURS TOPICAL PATCH TD SCH (09:31)
[2019-08-29] MEDS: CLOTRIMAZOLE 1% CREAM 15 GM TUBE TP SCH ×2 (09:32→21:34)
[2019-08-29] MEDS: hydrOXYzine PAMOATE 25 MG CAPSULE (FP) PO PRN (21:33)
[2019-08-29] MEDS: traZODone HCL 50 MG TABLET (FP) PO SCH (21:34)
[2019-08-29] MEDS: MELATONIN 5 MG TABLETS PO PRN (21:34)
[2019-08-29] MEDS: THIAMINE HCL 100 MG TABLET (FP) PO SCH (21:34)
[2019-08-30] MEDS: PRENATAL VITAMINS W/ FOLIC ACID TABLET (FP) PO SCH (10:34)
[2019-08-30] MEDS: CLOTRIMAZOLE 1% CREAM 15 GM TUBE TP SCH ×2 (10:35→21:42)
[2019-08-30] MEDS: BUDESONIDE/FORMETEROL FUMARATE 160/4.5 mcg INHALER IH SCH ×2 (10:35→21:42)
[2019-08-30] MEDS: GABAPENTIN 300 MG CAPSULE PO SCH (10:35)
[2019-08-30] MEDS: NICOTINE 14 MG/24 HOURS TOPICAL PATCH TD SCH (10:35)
[2019-08-30] MEDS: traZODone HCL 50 MG TABLET (FP) PO SCH (21:40)
[2019-08-30] MEDS: THIAMINE HCL 100 MG TABLET (FP) PO SCH (21:40)
[2019-08-30] MEDS: MELATONIN 5 MG TABLETS PO PRN (21:40)
[2019-08-30] MEDS: hydrOXYzine PAMOATE 25 MG CAPSULE (FP) PO PRN (21:41)
[2019-08-31] MEDS: PRENATAL VITAMINS W/ FOLIC ACID TABLET (FP) PO SCH (09:50)
[2019-08-31] MEDS: NICOTINE 14 MG/24 HOURS TOPICAL PATCH TD SCH (09:51)
[2019-08-31] MEDS: GABAPENTIN 300 MG CAPSULE PO SCH ×2 (09:51→18:10)
[2019-08-31] MEDS: hydrOXYzine PAMOATE 25 MG CAPSULE (FP) PO PRN (09:52)
[2019-08-31] MEDS: BUDESONIDE/FORMETEROL FUMARATE 160/4.5 mcg INHALER IH SCH ×2 (09:53→21:12)
[2019-08-31] MEDS: CLOTRIMAZOLE 1% CREAM 15 GM TUBE TP SCH ×2 (09:53→21:12)
[2019-08-31] MEDS: traZODone HCL 50 MG TABLET (FP) PO SCH (21:09)
[2019-08-31] MEDS: MELATONIN 5 MG TABLETS PO PRN (21:10)
[2019-08-31] MEDS: THIAMINE HCL 100 MG TABLET (FP) PO SCH (21:10)
[2019-08-31] MEDS: ACETAMINOPHEN 325 MG TABLET (FP) PO PRN (21:11)
[2019-09-01] MEDS ORDERED: ALBUTEROL SO4 2.5/IPRATROPIUM 0.5 INH SOL 3 ML VIAL.NEB. NEB PRN (09:14)
--- NOTE | 2019-09-01 09:14 | PN ---
S Progress Note Note: Vital Signs Temperature 97 F L 09/01/19 06:06 Pulse Rate 71 09/01/19 06:06 Respiratory Rate 20 09/01/19 06:06 Blood Pressure 107/71 09/01/19 06:06 O2 Sat by Pulse Oximetry (%) Laboratory Last Values HIV 1&2 Antibody Screen Negative 08/22/19 06:00 HIV P24 Antigen Negative 08/22/19 06:00 PATIENT WITH HX OF ASTHMA, NEEDS DUONEB ORDER RENEW ORDER RENEWED CONTINUE TO MONITOR
[2019-09-01] MEDS: PRENATAL VITAMINS W/ FOLIC ACID TABLET (FP) PO SCH (10:01)
[2019-09-01] MEDS: BUDESONIDE/FORMETEROL FUMARATE 160/4.5 mcg INHALER IH SCH ×2 (10:01→21:18)
[2019-09-01] MEDS: GABAPENTIN 300 MG CAPSULE PO SCH ×2 (10:03→18:20)
[2019-09-01] MEDS: NICOTINE 14 MG/24 HOURS TOPICAL PATCH TD SCH (10:04)
[2019-09-01] MEDS: CLOTRIMAZOLE 1% CREAM 15 GM TUBE TP SCH ×2 (10:05→21:18)
[2019-09-01] MEDS: traZODone HCL 50 MG TABLET (FP) PO SCH (21:17)
[2019-09-01] MEDS: hydrOXYzine PAMOATE 25 MG CAPSULE (FP) PO PRN (21:18)
[2019-09-01] MEDS: ACETAMINOPHEN 325 MG TABLET (FP) PO PRN (21:18)
[2019-09-01] MEDS: THIAMINE HCL 100 MG TABLET (FP) PO SCH (21:18)
[2019-09-01] MEDS: MELATONIN 5 MG TABLETS PO PRN (21:18)
[2019-09-02] MEDS: NICOTINE 14 MG/24 HOURS TOPICAL PATCH TD SCH (10:33)
[2019-09-02] MEDS: PRENATAL VITAMINS W/ FOLIC ACID TABLET (FP) PO SCH (10:33)
[2019-09-02] MEDS: BUDESONIDE/FORMETEROL FUMARATE 160/4.5 mcg INHALER IH SCH ×2 (10:34→21:09)
[2019-09-02] MEDS: GABAPENTIN 300 MG CAPSULE PO SCH ×2 (10:34→17:50)
[2019-09-02] MEDS: CLOTRIMAZOLE 1% CREAM 15 GM TUBE TP SCH ×2 (10:34→21:09)
[2019-09-02] MEDS: traZODone HCL 50 MG TABLET (FP) PO SCH (21:08)
[2019-09-02] MEDS: THIAMINE HCL 100 MG TABLET (FP) PO SCH (21:08)
[2019-09-02] MEDS: MELATONIN 5 MG TABLETS PO PRN (21:09)
[2019-09-03] MEDS: NICOTINE 14 MG/24 HOURS TOPICAL PATCH TD SCH (10:11)
[2019-09-03] MEDS: GABAPENTIN 300 MG CAPSULE PO SCH ×2 (10:11→21:38)
[2019-09-03] MEDS: PRENATAL VITAMINS W/ FOLIC ACID TABLET (FP) PO SCH (10:11)
[2019-09-03] MEDS: BUDESONIDE/FORMETEROL FUMARATE 160/4.5 mcg INHALER IH SCH ×2 (10:12→21:38)
[2019-09-03] MEDS: CLOTRIMAZOLE 1% CREAM 15 GM TUBE TP SCH ×2 (10:12→21:38)
[2019-09-03] MEDS: MELATONIN 5 MG TABLETS PO PRN (21:37)
[2019-09-03] MEDS: THIAMINE HCL 100 MG TABLET (FP) PO SCH (21:37)
[2019-09-03] MEDS: traZODone HCL 50 MG TABLET (FP) PO SCH (21:37)
[2019-09-04] MEDS: CLOTRIMAZOLE 1% CREAM 15 GM TUBE TP SCH ×2 (10:00→21:42)
[2019-09-04] MEDS: NICOTINE 14 MG/24 HOURS TOPICAL PATCH TD SCH (10:00)
[2019-09-04] MEDS: BUDESONIDE/FORMETEROL FUMARATE 160/4.5 mcg INHALER IH SCH ×2 (10:00→21:41)
[2019-09-04] MEDS: PRENATAL VITAMINS W/ FOLIC ACID TABLET (FP) PO SCH (10:01)
[2019-09-04] MEDS: MAG HYDROX/AL HYDROX/SIMETH 30 ML UNIT-DOSE CUP PO PRN (10:02)
[2019-09-04] MEDS: GABAPENTIN 300 MG CAPSULE PO SCH ×2 (11:21→17:33)
[2019-09-04] MEDS: traZODone HCL 50 MG TABLET (FP) PO SCH (21:40)
[2019-09-04] MEDS: THIAMINE HCL 100 MG TABLET (FP) PO SCH (21:40)
[2019-09-04] MEDS: MELATONIN 5 MG TABLETS PO PRN (21:40)
[2019-09-05] MEDS: BENZOYL PEROXIDE 5% 60 GM GEL..GRAM. TP PRN (10:14)
[2019-09-05] MEDS: BUDESONIDE/FORMETEROL FUMARATE 160/4.5 mcg INHALER IH SCH ×2 (10:14→21:11)
[2019-09-05] MEDS: CLOTRIMAZOLE 1% CREAM 15 GM TUBE TP SCH ×2 (10:14→21:11)
[2019-09-05] MEDS: PRENATAL VITAMINS W/ FOLIC ACID TABLET (FP) PO SCH (10:15)
[2019-09-05] MEDS: NICOTINE 14 MG/24 HOURS TOPICAL PATCH TD SCH (10:15)
[2019-09-05] MEDS: GABAPENTIN 300 MG CAPSULE PO SCH ×2 (10:15→17:40)
[2019-09-05] MEDS: MAG HYDROX/AL HYDROX/SIMETH 30 ML UNIT-DOSE CUP PO PRN (19:53)
[2019-09-05] MEDS: THIAMINE HCL 100 MG TABLET (FP) PO SCH (21:10)
[2019-09-05] MEDS: traZODone HCL 50 MG TABLET (FP) PO SCH (21:10)
[2019-09-05] MEDS: MELATONIN 5 MG TABLETS PO PRN (21:10)
[2019-09-06] MEDS: CLOTRIMAZOLE 1% CREAM 15 GM TUBE TP SCH ×2 (09:54→21:40)
[2019-09-06] MEDS: PRENATAL VITAMINS W/ FOLIC ACID TABLET (FP) PO SCH (09:55)
[2019-09-06] MEDS: GABAPENTIN 300 MG CAPSULE PO SCH ×2 (09:55→17:56)
[2019-09-06] MEDS: NICOTINE 14 MG/24 HOURS TOPICAL PATCH TD SCH (09:55)
[2019-09-06] MEDS: BUDESONIDE/FORMETEROL FUMARATE 160/4.5 mcg INHALER IH SCH ×2 (09:55→21:40)
[2019-09-06] MEDS ORDERED: SELENIUM SULFIDE 2.25% 180 ML SHAMPOO TP SCH (11:00)
[2019-09-06] MEDS: SELENIUM SULFIDE 2.5% LOTION 4 OZ. TP SCH (15:53)
[2019-09-06] MEDS: THIAMINE HCL 100 MG TABLET (FP) PO SCH (21:40)
[2019-09-06] MEDS: MELATONIN 5 MG TABLETS PO PRN (21:40)
[2019-09-06] MEDS: traZODone HCL 50 MG TABLET (FP) PO SCH (21:40)
[2019-09-07] MEDS: NICOTINE 14 MG/24 HOURS TOPICAL PATCH TD SCH (10:11)
[2019-09-07] MEDS: BUDESONIDE/FORMETEROL FUMARATE 160/4.5 mcg INHALER IH SCH ×2 (10:11→21:06)
[2019-09-07] MEDS: PRENATAL VITAMINS W/ FOLIC ACID TABLET (FP) PO SCH (10:12)
[2019-09-07] MEDS: CLOTRIMAZOLE 1% CREAM 15 GM TUBE TP SCH ×2 (10:12→21:06)
[2019-09-07] MEDS: GABAPENTIN 300 MG CAPSULE PO SCH ×2 (10:12→17:07)
[2019-09-07] MEDS: SELENIUM SULFIDE 2.5% LOTION 4 OZ. TP SCH (10:13)
[2019-09-07] MEDS: traZODone HCL 50 MG TABLET (FP) PO SCH (21:05)
[2019-09-07] MEDS: THIAMINE HCL 100 MG TABLET (FP) PO SCH (21:05)
[2019-09-07] MEDS: MELATONIN 5 MG TABLETS PO PRN (21:05)
[2019-09-08] MEDS: NICOTINE 14 MG/24 HOURS TOPICAL PATCH TD SCH (10:04)
[2019-09-08] MEDS: PRENATAL VITAMINS W/ FOLIC ACID TABLET (FP) PO SCH (10:04)
[2019-09-08] MEDS: GABAPENTIN 300 MG CAPSULE PO SCH ×2 (10:04→18:09)
[2019-09-08] MEDS: SELENIUM SULFIDE 2.5% LOTION 4 OZ. TP SCH (10:05)
[2019-09-08] MEDS: BUDESONIDE/FORMETEROL FUMARATE 160/4.5 mcg INHALER IH SCH ×2 (10:05→21:31)
[2019-09-08] MEDS: CLOTRIMAZOLE 1% CREAM 15 GM TUBE TP SCH ×2 (10:06→21:31)
[2019-09-08] MEDS: traZODone HCL 50 MG TABLET (FP) PO SCH (21:30)
[2019-09-08] MEDS: MELATONIN 5 MG TABLETS PO PRN (21:30)
[2019-09-08] MEDS: THIAMINE HCL 100 MG TABLET (FP) PO SCH (21:30)
[2019-09-09] MEDS: GABAPENTIN 300 MG CAPSULE PO SCH ×2 (10:01→17:36)
[2019-09-09] MEDS: PRENATAL VITAMINS W/ FOLIC ACID TABLET (FP) PO SCH (10:01)
[2019-09-09] MEDS: BUDESONIDE/FORMETEROL FUMARATE 160/4.5 mcg INHALER IH SCH ×2 (10:01→21:06)
[2019-09-09] MEDS: NICOTINE 14 MG/24 HOURS TOPICAL PATCH TD SCH (10:02)
[2019-09-09] MEDS: SELENIUM SULFIDE 2.5% LOTION 4 OZ. TP SCH (10:02)
[2019-09-09] MEDS: CLOTRIMAZOLE 1% CREAM 15 GM TUBE TP SCH ×2 (10:02→21:06)
[2019-09-09] MEDS: BENZOYL PEROXIDE 5% 60 GM GEL..GRAM. TP PRN (10:02)
[2019-09-09] MEDS: ACETAMINOPHEN 325 MG TABLET (FP) PO PRN (17:36)
[2019-09-09] MEDS: traZODone HCL 50 MG TABLET (FP) PO SCH (21:05)
[2019-09-09] MEDS: MELATONIN 5 MG TABLETS PO PRN (21:06)
[2019-09-09] MEDS: THIAMINE HCL 100 MG TABLET (FP) PO SCH (21:06)
[2019-09-10] MEDS: GABAPENTIN 300 MG CAPSULE PO SCH ×2 (09:55→17:50)
[2019-09-10] MEDS: PRENATAL VITAMINS W/ FOLIC ACID TABLET (FP) PO SCH (09:55)
[2019-09-10] MEDS: NICOTINE 14 MG/24 HOURS TOPICAL PATCH TD SCH (09:56)
[2019-09-10] MEDS: CLOTRIMAZOLE 1% CREAM 15 GM TUBE TP SCH ×2 (09:56→21:25)
[2019-09-10] MEDS: BUDESONIDE/FORMETEROL FUMARATE 160/4.5 mcg INHALER IH SCH ×2 (09:56→21:25)
[2019-09-10] MEDS: SELENIUM SULFIDE 2.5% LOTION 4 OZ. TP SCH (09:56)
[2019-09-10] MEDS: traZODone HCL 50 MG TABLET (FP) PO SCH (21:25)
[2019-09-10] MEDS: MELATONIN 5 MG TABLETS PO PRN (21:25)
[2019-09-10] MEDS: THIAMINE HCL 100 MG TABLET (FP) PO SCH (21:25)
[2019-09-11] MEDS: PRENATAL VITAMINS W/ FOLIC ACID TABLET (FP) PO SCH (10:18)
[2019-09-11] MEDS: GABAPENTIN 300 MG CAPSULE PO SCH ×2 (10:18→17:47)
[2019-09-11] MEDS: NICOTINE 14 MG/24 HOURS TOPICAL PATCH TD SCH (10:19)
[2019-09-11] MEDS: BUDESONIDE/FORMETEROL FUMARATE 160/4.5 mcg INHALER IH SCH ×2 (10:19→21:41)
[2019-09-11] MEDS: CLOTRIMAZOLE 1% CREAM 15 GM TUBE TP SCH ×2 (10:19→21:40)
[2019-09-11] MEDS: SELENIUM SULFIDE 2.5% LOTION 4 OZ. TP SCH (10:19)
[2019-09-11] MEDS: THIAMINE HCL 100 MG TABLET (FP) PO SCH (21:37)
[2019-09-11] MEDS: traZODone HCL 50 MG TABLET (FP) PO SCH (21:37)
[2019-09-11] MEDS: MELATONIN 5 MG TABLETS PO PRN (21:37)
[2019-09-12] MEDS: PRENATAL VITAMINS W/ FOLIC ACID TABLET (FP) PO SCH (10:19)
[2019-09-12] MEDS: SELENIUM SULFIDE 2.5% LOTION 4 OZ. TP SCH (10:19)
[2019-09-12] MEDS: GABAPENTIN 300 MG CAPSULE PO SCH ×2 (10:19→17:53)
[2019-09-12] MEDS: BENZOYL PEROXIDE 5% 60 GM GEL..GRAM. TP PRN (10:20)
[2019-09-12] MEDS: CLOTRIMAZOLE 1% CREAM 15 GM TUBE TP SCH ×2 (10:20→22:03)
[2019-09-12] MEDS: NICOTINE 14 MG/24 HOURS TOPICAL PATCH TD SCH (10:22)
[2019-09-12] MEDS: BUDESONIDE/FORMETEROL FUMARATE 160/4.5 mcg INHALER IH SCH ×2 (10:59→22:03)
[2019-09-12] MEDS: traZODone HCL 50 MG TABLET (FP) PO SCH (21:27)
[2019-09-12] MEDS: THIAMINE HCL 100 MG TABLET (FP) PO SCH (21:27)
[2019-09-13] MEDS: GABAPENTIN 300 MG CAPSULE PO SCH ×2 (10:24→17:04)
[2019-09-13] MEDS: CLOTRIMAZOLE 1% CREAM 15 GM TUBE TP SCH ×2 (10:24→21:04)
[2019-09-13] MEDS: PRENATAL VITAMINS W/ FOLIC ACID TABLET (FP) PO SCH (10:24)
[2019-09-13] MEDS: BUDESONIDE/FORMETEROL FUMARATE 160/4.5 mcg INHALER IH SCH ×2 (10:25→21:04)
[2019-09-13] MEDS: SELENIUM SULFIDE 2.5% LOTION 4 OZ. TP SCH (10:25)
[2019-09-13] MEDS: BENZOYL PEROXIDE 5% 60 GM GEL..GRAM. TP PRN (10:25)
[2019-09-13] MEDS: NICOTINE 14 MG/24 HOURS TOPICAL PATCH TD SCH (10:26)
[2019-09-13] MEDS: traZODone HCL 50 MG TABLET (FP) PO SCH (21:03)
[2019-09-13] MEDS: MELATONIN 5 MG TABLETS PO PRN (21:03)
[2019-09-13] MEDS: THIAMINE HCL 100 MG TABLET (FP) PO SCH (21:03)
[2019-09-14] MEDS: GABAPENTIN 300 MG CAPSULE PO SCH ×2 (10:11→17:39)
[2019-09-14] MEDS: BUDESONIDE/FORMETEROL FUMARATE 160/4.5 mcg INHALER IH SCH ×2 (10:11→21:37)
[2019-09-14] MEDS: PRENATAL VITAMINS W/ FOLIC ACID TABLET (FP) PO SCH (10:11)
[2019-09-14] MEDS: NICOTINE 14 MG/24 HOURS TOPICAL PATCH TD SCH (10:11)
[2019-09-14] MEDS: CLOTRIMAZOLE 1% CREAM 15 GM TUBE TP SCH ×2 (10:12→21:37)
[2019-09-14] MEDS: MELATONIN 5 MG TABLETS PO PRN (21:36)
[2019-09-14] MEDS: traZODone HCL 50 MG TABLET (FP) PO SCH (21:36)
[2019-09-14] MEDS: THIAMINE HCL 100 MG TABLET (FP) PO SCH (21:36)
[2019-09-15] MEDS: CLOTRIMAZOLE 1% CREAM 15 GM TUBE TP SCH ×2 (10:01→21:26)
[2019-09-15] MEDS: PRENATAL VITAMINS W/ FOLIC ACID TABLET (FP) PO SCH (10:01)
[2019-09-15] MEDS: GABAPENTIN 300 MG CAPSULE PO SCH ×2 (10:01→17:03)
[2019-09-15] MEDS: BUDESONIDE/FORMETEROL FUMARATE 160/4.5 mcg INHALER IH SCH ×2 (10:02→21:27)
[2019-09-15] MEDS: NICOTINE 14 MG/24 HOURS TOPICAL PATCH TD SCH (10:02)
--- NOTE | 2019-09-15 11:55 | DS ---
[facility] Rehab Discharge Summary - [facility] Rehab Discharge Summary Admission Date: 08/21/19 Discharge Date: 09/15/19 - History Present History: Cannabis dependence, Cocaine dependence, Opioid dependence Pertinent Past History: LAST HERE 1 MONTH AGO. HE REPORTS COMPLETING DETOX AND THEN WENT TO [facility] FOR REHAB. DID 14 DAYS. HE STATES RELAPSING SOON AFTER. HX/O DRUG OVERDOSE, LAST BEING ABOUT 3 MONTHS AGO. HE ALSO REPORTS CANNABIS AND COCAINE ABUSE. LONGEST CLEAN TIME 8 MONTHS. HOMELESS, UNEMPLOYED, DENIES LEGALS - Discharge Physical Exam Vital Signs: Vital Signs Temperature 98.2 F 09/15/19 06:49 Pulse Rate 71 09/15/19 06:49 Respiratory Rate 18 09/15/19 06:49 Blood Pressure 107/72 09/15/19 06:49 O2 Sat by Pulse Oximetry (%) Pertinent Admission Physical Exam Findings: Physical General Appearance: no apparent distress HEENTM: Normocephalic, [place], Respiratory: Lungs Clear, Neck: Supple, Trachea in good position Cardiology: S1, S2, Abdominal: Non Tender, Soft, +Bowel Sounds Musculoskeletal: full range of Motion, Gait Steady Neurological: Cn 2-12 intact - Treatment Discharge Condition: Outpatient referral accepted (Medically stable for discharge. Will go to [facility]) Hospital Course: Attended groups, had 1:1 with counselor, was seen by psychiatric service. He had no significant medical issues while in rehab. - Medication Discharge Medications: Ambulatory Orders Bupropion HCl [Wellbutrin -] 150 mg PO DAILY 08/17/19 Gabapentin 300 mg PO BID 08/17/19 traZODone HCL [Trazodone HCl] 50 mg PO HS 08/17/19 Albuterol Sulfate Inhaler - [Ventolin HFA Inhaler -] 2 inh PO Q4H #1 inhaler Benzoyl Peroxide 5% Gel - 1 applic TP DAILY PRN #1 applic 09/15/19 Budesonide/Formeterol Fumarate [SYMBICORT 160/4.5mcg -] 2 inh PO BID #1 inhaler 09/15/19 Clotrimazole [Lotrimin -] 1 applic TP BID #1 tube 09/15/19 - Medication-Assisted Treatment (MAT) Medication-Assisted Treatment (MAT): No - Discharge Instructions Diet, activity, other medical instructions: Diet:as tolerated Activity: as tolerated Other medical instructions: Please follow up with aftercare referral. - Diagnosis (1) Cannabis dependence Current Visit: No Status: Chronic (2) Cocaine dependence Current Visit: No Status: Chronic Qualifiers: Substance use status: uncomplicated Qualified Code(s): F14.20 - Cocaine dependence, uncomplicated (3) Opioid dependence Current Visit: No Status: Chronic - Follow-up Referral Minutes to complete discharge: 20 - AMA Did Patient Leave Against Medical Advice: No
--- NOTE | 2019-09-15 15:01 | PN ---
[facility] Progress Note Note: Patient is scheduled for discharge tomorrow. Scripts for 30 days supply of medications(Wellbutrin XL 150 mg/day, Trazadone 50 mg/hs, Gabapentin 300 mg/bid ) will be electronically transmitted to [facility] at [address] [place] [address]
[2019-09-15] MEDS: IBUPROFEN 400 MG TABLET (FP) PO PRN (19:10)
[2019-09-15] MEDS: THIAMINE HCL 100 MG TABLET (FP) PO SCH (21:26)
[2019-09-15] MEDS: MELATONIN 5 MG TABLETS PO PRN (21:26)
[2019-09-15] MEDS: traZODone HCL 50 MG TABLET (FP) PO SCH (21:26)
[2019-09-16 06:49] VITALS: BP 113/62; PULSE 69; TEMP 97.5
[2019-09-16] MEDS: GABAPENTIN 300 MG CAPSULE PO SCH (09:02)
[2019-09-16] MEDS: PRENATAL VITAMINS W/ FOLIC ACID TABLET (FP) PO SCH (09:02)
[2019-09-16] MEDS: IBUPROFEN 400 MG TABLET (FP) PO PRN (09:03)
[2019-09-16] MEDS: BUDESONIDE/FORMETEROL FUMARATE 160/4.5 mcg INHALER IH SCH (09:06)
[2019-09-16] MEDS: CLOTRIMAZOLE 1% CREAM 15 GM TUBE TP SCH (09:06)
[2019-09-16] MEDS: NICOTINE 14 MG/24 HOURS TOPICAL PATCH TD SCH (09:06)
== END 2019-09-16 09:27 | disposition home or self-care (01) | DRG 772 ==
LOC: YASAS 11:32 → Y3W 11:34
PROVIDERS: ADMIT Neuromusculoskeletal Medicine & OMM; ATTEND Neuromusculoskeletal Medicine & OMM
PROC: HZ42ZZZ Group Counseling for Substance Abuse Treatment, Cognitive-Behavioral (ICD-10-PCS; principal; 2019-08-21)
DX: F11.20 Opioid dependence, uncomplicated (principal); F14.20 Cocaine dependence, uncomplicated; F12.20 Cannabis dependence, uncomplicated; J45.909 Unspecified asthma, uncomplicated; B35.6 Tinea cruris; L70.9 Acne, unspecified; Z91.010 Allergy to peanuts
CPT/HCPCS: 36415; 87389